=== PATIENT | female | born 1990 | race Caucasian/White ===

== ENCOUNTER 2023-03-07 10:05 | Outpatient (CLI) | payer MEDICAID, SELFPAY | END 2023-03-07 10:06 | disposition home or self-care (01) | PROVIDERS: PCP Nurse Practitioner Family; Visit Provider Nurse Practitioner Family | DX: Z00.00 Encounter for general adult medical examination without abnormal findings (principal); E03.9 Hypothyroidism, unspecified; E11.69 Type 2 diabetes mellitus with other specified complication; E66.9 Obesity, unspecified | CPT/HCPCS: 80053; 80061; 84443 ==

== ENCOUNTER 2023-06-03 20:14 | Outpatient (CLI) | payer MEDICAID, SELFPAY ==
--- NOTE | 2023-06-11 08:41 | W.PM.SLEEP ---
Sleep Study Details Details Interpreting Provider: Pasha Date of Sleep Study: 06/03/23 Sleep Study Details: STUDY TYPE:? Home unattended ? BMI:? 57.4 ORDERING PROVIDER:? Pasha INDICATION:? Concerns about sleep apnea ? SLEEP SUMMARY:? Total sleep time 348 minutes, efficiency 80.6, arousal index 57.9 RESPIRATORY SUMMARY:? Mean oxygen awake 95 asleep 94 minimum 75 2.4 minutes oxygen between 80 and 88% AHI 21.2, RDI 48.4. No REM stage sleep was seen. The entire study was done in the supine position PERIODIC LIMB MOVEMENTS OF SLEEP:? None were observed CARDIAC:? Awake 65, asleep 62. No arrhythmias noted IMPRESSION:? Moderate to severe obstructive sleep apnea with an AHI of 21.2 and RDI of 48.4. Note the entire study was done supine. RECOMMENDATION: AutoSet CPAP pressure 4-17. Weight loss is also recommended.
== END 2023-06-03 20:15 | disposition home or self-care (01) ==
LOC: SLEEP 20:15
PROVIDERS: PCP Nurse Practitioner Family; Visit Provider Otolaryngology
DX: G47.33 Obstructive sleep apnea (adult) (pediatric) (principal)
CPT/HCPCS: 95810

== ENCOUNTER 2023-09-26 12:18 | Outpatient (CLI) | payer MEDICAID, SELFPAY | END 2023-09-26 12:19 | disposition home or self-care (01) | PROVIDERS: PCP Nurse Practitioner Family; Visit Provider Nurse Practitioner Family | DX: F32.A Depression, unspecified (principal); F41.9 Anxiety disorder, unspecified; E03.9 Hypothyroidism, unspecified | CPT/HCPCS: 82306; 84481 ==

== ENCOUNTER 2023-11-20 06:52 | Day surgery (SDC) | payer MEDICAID, SELFPAY ==
[2023-11-20] VITALS (7 sets, daily range): BP systolic 127–154; BP diastolic 65–86; PULSE 55–63; RESP 16–20; TEMP 36.3–36.7; O2SAT 93–100; BMI 61.3
[2023-11-20] MEDS: SODIUM CHLORIDE 0.9 % (FLUSH) 10 ML SYRINGE IVF (08:00)
[2023-11-20] MEDS: LACTATED RINGERS 1000 ML 1,000 ML 100 ML IV (08:00)
[2023-11-20 08:12] LABS: Basophils Absolute Auto 0.04 K/uL (0.00-0.30); Basophils Percent Auto 0.4 % (0.0-3.0); Eosinophils Absolute Auto 0.21 K/uL (0.00-0.50); Eosinophils Percent Auto 2.2 % (0.0-7.0); Hematocrit 42.6 % (33.0-51.0); Hemoglobin* 13.6 gm/dL (12.0-16.0); Immature Granulocytes Abs Auto 0.02 K/uL (0.00-0.30); Immature Granulocytes Pct Auto 0.2 %; Lymphocytes Absolute Auto 2.04 K/uL (0.90-2.90); Lymphocytes Percent Auto 21.1 % (20-44); Mean Corpuscular HGB Conc 32 gm/dL (32-36); Mean Corpuscular Hemoglobin 28 pg (26-34); Mean Corpuscular Volume 86 fL (80-100); Monocytes Percent Auto 6.7 % (0.0-11.0); Neutrophils Percent Auto 69.4 % (42.0-72.0); Platelet Count* 202 K/uL (140-440); RDW Coefficient of Variation % 13.7 % (11.5-15.5); Red Blood Count 4.94 m/uL (4.00-5.20); White Blood Count* 9.66 K/uL (4.50-11.00)
[2023-11-20 08:12] LABS: Ur HCG Qualitative* Negative (Negative)
[2023-11-20 08:18] LABS: Slide Review Reflex No
--- NOTE | 2023-11-20 08:18 | W.PM.H&PU ---
History & Physical Update History & Physical Update H&P Reviewed and patient assessed: No changes noted
[2023-11-20 08:35] LABS: Chloride* 108 mmol/L (96-114); Potassium* 4.4 mmol/L (3.6-5.1); Sodium* 140 mmol/L (135-149)
[2023-11-20 08:37] LABS: Creatinine* 0.7 mg/dL (0.5-1.5); Est. Creatinine Clearance* 213.99; Estimated Glomerular Filt Rate 116 ml/min
[2023-11-20 08:38] LABS: Anion Gap 7 mEq/L (7-15); Blood Urea Nitrogen* 14 mg/dL (5-24); Calcium* 8.8 mg/dL (8.4-10.6); Carbon Dioxide* 25 mmol/L (20-32); Glucose* 110 mg/dL (60-115)
[2023-11-20 09:09] LABS: Clue Cells No Clue Cells Seen (None Seen); Trichomonas No Trichomonas Seen (None Seen); Yeast No Yeast Seen (None Seen)
--- NOTE | 2023-11-20 09:15 | W.ANESCHARGE ---
Anesthesia Charges Start Date/Time Anesthesia Start Date: 11/20/23 Anesthesia Start Time: 08:14 Stop Date/Time Anesthesia Stop Date: 11/20/23 Anesthesia Stop Time: 08:53
--- NOTE | 2023-11-20 09:50 | P.GYNPRC_ITS ---
Procedure Note Time Seen by Provider: 09:50 Date of procedure: 11/20/23 Procedure: DILATION AND CURETTAGE PREOPERATIVE DIAGNOSIS: 1. Overdue Gabby IUD 2. Overdue pap smear 3. Unable to tolerate pelvic exam in clinic POSTOPERATIVE DIAGNOSIS: Same PROCEDURE: 1. EUA 2. Screening pap smear with HPV 3. Gabby IUD removal 4. Mirena IUD insertion SURGEON: Chanelle Bryant MD ANESTHESIA: MAC FINDINGS: 1. Patient had incontinence of urine when being positioned 2. Erythema on bilateral labia minor near introitus - wet prep performed 3. A 6 week size mobile anteverted uterus, no adnexal masses on EUA 4. Normal external genitalia, small normal appearing cervix with IUD strings protruding from cervical os. Cervix was friable when the pap smear was being obtained. ESTIMATED BLOOD LOSS: <5 cc URINE OUTPUT: 20 cc COMPLICATIONS: None SPECIMEN: 1. Cervical pap smear INDICATIONS: Maxime is a 33yo G0 here for exam under anesthesia due to overdue IUD replacement and inability to tolerate pelvic exam in office. Additionally, she is overdue for her screening Pap smear as well. DESCRIPTION OF PROCEDURE: The patient was taken to the operating room where monitored anesthesia care was administered. Pneumoboots were placed and activated. She was placed in the dorsal lithotomy position in yellow fin, taking care to avoid lower extremity hyperextension, hyperflexion or compression. Unfortunately, the standard yellow fins were too small for her and there was not bariatric yellow fins available. Tape was used to secure the straps on the yellow fins. During debrief, I mentioned that we need to have at least one set bariatric yellow fins. A surgical time-out was performed with the entire operative staff per protocol. EUA revealed the above findings. Bladder was drained with a red rubber. A speculum was placed in the patient's vagina and pap smear was obtained prior to iodine prep. The cervix was then subsequently prepped with iodine. Single- tooth tenaculum was placed on the anterior lip of the cervix. A ring forceps was used to grasp the protruding IUD strings at the cervical os. Gentle traction was used to remove the IUD. Gabby IUD was removed intact without complications. Attention was then turned towards the Mirena IUD insertion. The IUD is loaded into the insertion tube, inserted to the sounded depth (7 cm), and the IUD is deployed. Insertion tube was removed. Strings are trimmed to 3 cm. There were no complications with insertion. The tenaculum was removed from the anterior lip of the cervix and silver nitrate was used for hemostasis at the tenaculum sites. Excellent hemostasis was noted. All instruments were removed. Sponge, lap and needle counts were correct x 2. The patient was taken to the recovery room in stable condition. Debrief performed per protocol and specimen reviewed. Specimen was sent to pathology. Per Anesthesia, there was significant difficulties managing her oxygen saturation throughout the case. She did not tolerate any amount of Trendelenburg. This related to her severe sleep apnea and obesity. I spoke to Maxime's mom about this after the case and they do have an appointment to see ENT on 12/17 with possible surgical management for her sleep apnea. Maxime does not tolerate the CPAP and would frequently take it off. Unfortunately she wakes up numerous times throughout the night. It has significantly impacted her mood, quality of life and she has been so sleep deprived that it has caused hallucinations in the past. I emphasized the importance of CPAP given how severe her sleep apnea is but also acknowledge the difficulties of making Maxime do something she does not want. It is vital that they keep their appointment with ENT to explore other options to prevent theses apneic events and restore her sleep. With regards to today's procedures, there were not complications. Pathology: specimen obtained, sent to pathology (Screening pap smear for cytology and HPV testing ) Condition: stable Disposition: PACU
--- NOTE | 2023-11-20 10:08 | SUR.PHASEII ---
Delano Breen CRNA, assessed resp. status and agreed pt sufficiently recovered to be discharged. sats mid to upper 90's on room air. lungs clear
--- NOTE | 2023-11-20 11:37 | W.ANESCHARGE ---
Anesthesia Charges Start Date/Time Anesthesia Start Date: 11/20/23 Anesthesia Start Time: 08:14 Stop Date/Time Anesthesia Stop Date: 11/20/23 Anesthesia Stop Time: 08:53
== END 2023-11-20 10:10 | disposition home or self-care (01) ==
PROVIDERS: PCP Nurse Practitioner Family; Visit Provider Obstetrics & Gynecology
PROC: (CPT 58301; principal; 2023-11-20 08:15)
DX: Z30.433 Encounter for removal and reinsertion of intrauterine contraceptive device (principal); G47.33 Obstructive sleep apnea (adult) (pediatric); E66.01 Morbid (severe) obesity due to excess calories; Z68.44 Body mass index [BMI] 60.0-69.9, adult; R45.86 Emotional lability; F32.A Depression, unspecified; F41.9 Anxiety disorder, unspecified; R45.89 Other symptoms and signs involving emotional state; R62.50 Unspecified lack of expected normal physiological development in childhood
CPT/HCPCS: 58301; 58300; 57410; 00940; 36415; 80048; 81025; 85025; 87210; 87624; 88175; J1100; J2250; J2405; J2704; J3010; J3490; J7120; J7298

== ENCOUNTER 2024-01-31 21:07 | Outpatient (CLI) | payer MEDICAID, SELFPAY | END 2024-01-31 21:08 | disposition home or self-care (01) | LOC: AMB 02-02 06:46 | PROVIDERS: PCP Nurse Practitioner Family; Visit Provider Emergency Medicine | DX: F91.9 Conduct disorder, unspecified (principal) | CPT/HCPCS: A0998 ==

== ENCOUNTER 2024-02-10 14:31 | Outpatient (CLI) | payer MEDICAID, SELFPAY | END 2024-02-10 14:32 | disposition home or self-care (01) | LOC: NFLDREF 02-14 09:08 | PROVIDERS: PCP Nurse Practitioner Family; Referring Provider Nurse Practitioner Family; Visit Provider Nurse Practitioner Family | DX: E03.9 Hypothyroidism, unspecified (principal); E66.9 Obesity, unspecified; R45.89 Other symptoms and signs involving emotional state | CPT/HCPCS: 80175; 84443; 84481 ==

== ENCOUNTER 2024-03-05 07:24 | Day surgery (SDC) | payer MEDICAID, SELFPAY ==
--- OUTSIDE RECORDS SUMMARY | 2024-03-05 07:26 | XMS_ITS | Encounter Summary ---
Author Name Unknown Organization [place] Address [address] [facility] [place] [address] Care Team Providers Care Tufting Machine Operator Name Role Phone Brock Norris MD Unavailable [phone] Andreina Gomes MD Unavailable [phone] Lele Buckley OD Unavailable [phone] [facility] re Provider Reason for Visit * Reason Onset Date Comments Call Back 12/31/2023 Encounter Details Date Type Department Care Team (Late st Contact Info) Description 12/31/2023 Telephone [facility] [address] 3rd Floor,[address] [place] [facility] [address] [place] [address] None Call Back Social History Tobacco Use Types Packs/Day Years Used Date Smoking Tobacco: Never Comments:NO SECOND HAND SMOK E Alcohol Use Standard Drinks/Week Comments No 0 (1 standard drink = 0.6 oz pur e alcohol) Adolescent Education Answer Date Record ed Getting School Help Needed Not on file 09/01 Sex and Gender Information Value Date Recorded Sex Assigned at Not on file Gender Identity Not on file Sexual Orientation Not on file documented as of this encounter Miscellaneous Notes * Telephone Encounter - Hong Staton - 12/31/2023 10:48 AM CST LVM for patient's guardian to schedule 1 hr-long new CFP appointment with Dr. Rankin or Dr. Christianson. ULATOR * Telephone Encounter - Elena Pop - 12/31/2023 9:57 AM CST [facility] Phone Message May a detailed message be left on voicemail: yes Reason for Call: Other: Pt legal guardian Twila calling to schedule pt for a IUD removal and hysterectomy consult. Repeat Photocomposing Machine Operator informed Twila this will be 2 separate appts. Twila states pt is special needs and is requesting this all be done at 1 appt. Please advise and call Twila Action Taken: Message routed to: Other: [facility] Travel Screening: Not Applicable ULATOR documented in this encounter Plan of Treatment Not on file documented as of this encounter Visit Diagnoses Not on filedocumented in this encounter Care Teams Tufting Machine Operator Relationship Specialty Start Date End Date Brock Norris MD [facility] [place] [address] [place] [address] PCP - ENT 12/11/00 02/03/24 Andreina Gomes MD [facility] [place] [address] [place] [address] PCP - Urology 06/12/06 02/03/24 Lele Buckley, ALESSANDRO [facility] [place] [address] [place] [address] PCP - Ophthalmology 08/25/09 02/03/[address] [address] PCP - General 06/26/23 Dr. Naresh Herrera [address] [address] Psychiatrist 11/18/14 02/01/24 documented as of this encounter
--- OUTSIDE RECORDS SUMMARY | 2024-03-05 07:26 | XMS_ITS ---
Author Name Unknown Organization [facility] Address [address] [place] [address] Care Team Providers Care Wire Tinner Name Role Phone Unavailable Unavailable Unavailable Surgery Details Not on file Complications Check Surgery Details section. Procedure Estimated Blood Loss Check Surgery Details section. Procedure Findings Check Surgery Details section. Procedure Specimens Taken Check Surgery Details section.
--- OUTSIDE RECORDS SUMMARY | 2024-03-05 07:26 | XMS_ITS | Encounter Summary ---
Author Name Unknown Organization [place] Address [address] [place] [address]. [place] [address] Care Team Providers Care Rotary Cutter Feeder Name Role Phone Brock Norris MD Unavailable [phone] Andreina Gomes MD Unavailable [phone] Lele Buckley OD Unavailable [phone] [facility] re Provider Leida Christianson MD Unavailable [phone] Encounter Details Date Type Department Care Team (Latest Contact Info) Description 06/28/2023 Hospital Encounter Amena Gonsales MD [facility] [place] [address] Social History Tobacco Use Types Packs/Day Years [...] on file Sexual Orientation Not on file COVID-19 Exposure Response Date Recorded In the last 10 days, have yo u been in contact with someone who was confirmed or suspected to have Coronavirus/COVID-19? No / Unsure 06/26/2023 9:33 AM CDT documented as of this encounter Plan of Treatment Not on file documented as of this encounter Visit Diagnoses Not on filedocumented in this encounter Care Teams Rotary Cutter Feeder Relationship Specialty Start Date End Date Brock Norris MD [facility] [place] [address] [place] [address] PCP - ENT 12/11/00 02/03/24 Andreina Gomes MD [facility] [place] [address] [place] [address] PCP - Urology 06/12/06 02/03/24 Lele Buckley OD [facility] [place] [address] [place] [address] PCP - Ophthalmology 08/25/09 02/03/[address] [address] PCP - General 06/26/23 Leida Christianson MD [address] [place] [address] Assigned OBGYN Provider 01/31/24 Dr. Naresh Herrera [address] [address] Psychiatrist 11/18/14 02/01/24 Amy Magallanes Psychiatrist 01/16/24 documented as of this encounter
--- OUTSIDE RECORDS SUMMARY | 2024-03-05 07:26 | XMS_ITS | Clinical Summary ---
Author Name Unknown Organization [place] Address [address] [place] [address] Care Team Providers Care Tomahawk Weapon System Operator Name Role Phone Clinic, [facility] Provider Leida Christianson MD Unavailable Allergies Active Allergy Reactions Criticality Noted Date Comments No Known Allergies Low Medications Medication Sig Dispensed Refills Start Date End Date Status ARIPiprazole (ABILIFY) 20 MG tablet Take 25 mg by mouth every morning Take in combination with a 5 mg tablet for 25 mg 06/14/2023 Active lamoTRIgine (LAMICTAL) 200 MG tablet Take 200 mg by mouth every morning 06/13/2023 Active propranolol (INDERAL) 60 MG tablet Take 1 tablet by mouth 2 times daily 06/12/2023 Active levothyroxine (SYNTHROID/LEVOTHRO ID) 137 MCG tablet Take 137 mcg by mouth daily before breakfast 06/25/2023 Active traZODone (DESYREL) 100 MG tablet Take 100 mg by mouth at bedtime Active DULoxetine (CYMBALTA) 60 MG capsule Take 60 mg by mouth daily Active hydrOXYzine HCl (ATARAX) 25 MG tablet Take 25 mg by mouth 3 times daily as needed for anxiety Active QUEtiapine (SEROQUEL) 50 MG tablet Take 50 mg by mouth 2 times daily as needed (Agitation) Active topiramate (TOPAMAX) 100 MG tabletIndications:A ggressive behavior Take 1 tablet (100 mg) by mouth every evening 7 tablet 02/03/2024 Active topiramate (TOPAMAX) 50 MG tabletIndications:A ggressive behavior Take 1 tablet (50 mg) by mouth every morning 7 tablet 02/03/2024 Active OLANZapine zydis (ZYPREXA) 5 MG ODTIndications:Aggr essive behavior,Hallucinat ions Take 1 tablet (5 mg) by mouth 3 times daily as needed for agitation 15 tablet 02/03/2024 Active Active Problems Problem Noted Date Diagnosed Date 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 Provider to review Lack of expected normal physiological developmen t 12/26/2007 Overview: Problem list name updated by automated process. Provider to review Essential hypertension, benign 12/26/2007 Overview: 03/2008- optimal on Lisinopril 10 mg daily Other chronic otitis externa 10/05/2002 Impacted cerumen 10/05/2002 Otitis media 10/05/2002 Overview: Problem list name updated by automated process. Provider to review Resolved Problems Problem Noted Date Diagnosed Date Resolved Date Intellectual delay 02/03/2024 Overview: per history Encounters Date Type Department Care Team Description 02/02/2024 5:20 PM CDT - 02/04/2024 1:[address] [facility] Emergency Dept [address] [place] [phone] Han Arroyo MD [place], MD Kostas Mason, MD Jenise Rey Kylie S, MD Battista, MD Brenda Foreman Ellen, Hallucinations (Primary Dx); Aggressive behavior; Cognitive impairment Discharge Disposition: Home or Self Care 02/02/2024 Travel 01/14/2024 9:30 AM INSURANCE JOB TITLES Office Visit [facility] [address] [place] [address] 3rd Floor,[address] [facility] [address] [phone] Leida Christianson MD Menorrhagia with regular cycle (Primary Dx); Lack of expected normal physiological development; KALIE (obstructive sleep apnea); Type 2 diabetes mellitus without complication, unspecified whether [facility] insulin use (H); Psychosis, unspecified psychosis type (H); Class 3 severe obesity with serious comorbidity and body mass index (BMI) of 50.0 to 59.9 in adult, unspecified obesity type (H) 01/14/2024 Travel 12/31/2023 Telephone [facility] [address] [place] [address] 3rd Floor,[address] [facility] [address] [phone] None Call Back 12/25/2023 Transcribe Orders GENERIC EXTERNAL DATA DEPARTMENT Provider, Generic External Data Morbid (severe) obesity due to excess calories (H) (Primary Dx); Body mass index (BMI) 60.0-69.9, adult (H); Personal history of pulmonary embolism; Type 2 diabetes mellitus with other specified complication (H); Obesity, unspecified; Hypothyroidism; Unspecified lack of expected normal physiological development in childhood; Sleep apnea; Emotional lability; Presence of (intrauterine) contraceptive device; Insomnia; Personal history of other specified conditions; Depression; Anxiety 12/23/2023 Medical Correspondence [facility] Info [facility] [address] [place] [address] Scan, Non-Provider from Last 3 Months Immunizations Name Administration Dates Next Due Flu, Unspecified 09/01/2015,09/10/2013, 1 HepB 02/07/2000,07/11/1999,03/30/1999 HepB, Unspecified 02/08/2000,07/11/1999,03/30/19 99 Historical DTP/aP 04/29/1995, 1,1990,1989,06/02/1990 Influenza (High Dose) 3 indira nt vaccine 08/18/2016 Influenza (IIV3) PF 08/14/2012, 0,11/03/2007,2004,09/13/2004,09/11/2001 Influenza Vaccine 18-64 (Flublok) 10/05/2021 Influenza Vaccine >6 months,quad, PF ,10/19/2021,11/26/2018,2016,08/02/2016,08/24/2014 Influenza Vaccine, 6+MO IM (QUADRIVALENT W/PRESERVATIVES) 08/14/2019,08/18/2015 Influenza,INJ,MDCK,PF,Quad >6mo(Flucelvax) 08/15/2020 MMR 03/30/1999,04/06/1990 Mantoux Tuberculin Skin Test 02/22/2009, 02/25/2008,03/07/2007,2005,03/21/2005,03/22/2004,03/24/2003,0 03/25/2002,03/26/2001 OPV, trivalent, live 04/29/1995 Polio, Unspecified 04/21/1991,1990, 990 TD,PF 7+ (Tenivac) 03/24/2003 TDAP (Adacel,Boostrix) 05/26/2021,02/27/2011 Td (Adult), Adsorbed 03/24/2003 Family History Medical History Relation Comments Hypertension Maternal Grandfather Hypertension Maternal Grandmother Family History Negative Other Relation Status Comments Father Alive Maternal Grandfather Alive Maternal Grandmother Alive Mother Alive Other Paternal Grandfather Alive Paternal Grandmother Alive Sister Alive Social History Tobacco Use Types Packs/Day Years [...] on file Sexual Orientation Not on file Last Filed Vital Signs Vital Sign Reading Time Taken Comments Blood Pressure 132/66 02/04/2024 7:19 AM CDT Pulse 67 02/03/2024 3:47 PM CDT Temperature 36.9 ??C (98.4 ??F) 02/04/2024 7:19 AM CD T Respiratory Rate 20 02/04/2024 7:19 AM CDT Oxygen Saturation 95% 02/04/2024 7:19 AM CDT Inhaled Oxygen Concentration - - Weight 121.1 kg (267 lb) 01/14/2024 10:24 AM INSURANCE JOB TITLES Height 143.5 cm (4' 8.5) 01/14/2024 10:24 AM CS T Body Mass Index 58.81 01/14/2024 10:24 AM INSURANCE JOB TITLES Plan of Treatment Health Maintenance Due Date Last Done Comments ANNUAL REVIEW OF HM ORDERS 1989 DIABETIC FOOT EXAM 1989 MICROALBUMIN 1989 Pneumococcal Vaccine: Pediatrics (0 to 5 Years) and At-Risk Patients (6 to 64 Years) (1 of 2 - PCV) 1995 HIV SCREENING 2004 HEPATITIS C SCREENING 2007 A1C 04/04/2008 01/05/2008 LIPID 01/05/2009 01/05/2008 TSH W/FREE T4 REFLEX 08/17/2010 08/17/2009, 06/29/2009, 02/22/2009, Additional history exists EYE EXAM 08/23/2010 08/23/2009, 08/05/2007 PAP 2010 YEARLY PREVENTIVE VISIT 03/11/2020 03/11/20 19, 03/07/2018, 02/21/2010, Additional history exists COVID-19 Vaccine ( season) 2023 INFLUENZA VACCINE (#1) 2023 , 10/19/2021, 10/05/2021, Additional history exists PHQ-2 (once per calendar year) 2023 BMP 06/26/2024 06/26/2023, 07/21, 06/29/2009, Additional history exists ADVANCE CARE PLANNING 06/27/2028 06/27/2023 DTAP/TDAP/TD IMMUNIZATION (8 - Td or Tdap) 05/26/2031 05/26/2021, 02/27/2011, 03/24/2003, Additional history exists IPV IMMUNIZATION Completed 04/29/1995, 02/1991, 1990, Additional history exists HEPATITIS B IMMUNIZATION Completed 000, 02/07/2000, 07/11/1999, Additional history exists HPV IMMUNIZATION Aged Out No longer e ligible based on patient's age to complete this topic MENINGITIS IMMUNIZATION Aged Out No l onger eligible based on patient's age to complete this topic RSV MONOCLONAL ANTIBODY Aged Out No l onger eligible based on patient's age to complete this topic Procedures Procedure Name Priority Date/Time Associated Diagnosis Comments BASIC METABOLIC PANEL STAT 06/26/2023 12:10 PM CDT HCL TSH W/FREE T4 REFLEX Routine 08/17/2009 7:38 AM CDT HYPOTHYROIDISM NOS CL AFF A.M.A. LIPID PANEL Routine 01/05/2008 8:35 AM INSURANCE JOB TITLES Benign Hypertension Obesity Nos HCL GLYCATED HEMOGLOBIN Routine 01/05/2008 8:35 AM INSURANCE JOB TITLES Obesity Nos Benign Hypertension from Last 3 Months or Most Recently Relevant to Health Maintenance Results * (ABNORMAL) Basic metabolic panel (06/26/2023 12:10 PM CDT) Sodium 138 136 - 145 mmol/L 06/26/2023 1:03 PM CDT LABORATORY Potassium 4.3 3.4 - 5.3 mmol/L 06/26/2023 1:03 PM CDT LABORATORY Chloride 106 98 - 107 mmol/L 06/26/2023 1:03 PM CDT [facility] LABORATORY Carbon Dioxide (CO2) 21(L) 22 - 29 mmol/L 06/26/2023 1:03 PM CDT LABORATORY Anion Gap 11 7 - 15 mmol/L 06/26/2023 1:03 PM CDT [facility] Urea Nitrogen 13.5 6.0 - 20.0 mg/dL 06/26/2023 1:03 PM CDT LABORATORY Creatinine 0.71 0.51 - 0.95 mg/dL 06/26/2023 1:03 PM CDT LABORATORY Calcium 9.0 8.6 - 10.0 mg/dL 06/26/2023 1:03 PM CDT LABORATORY Glucose 102(H) 70 - 99 mg/dL 06/26/2023 1:03 PM CDT [facility] GFR Estimate >90 >60 mL/min/1.7 3m2 06/26/2023 1:03 PM CDT [facility] LABORATORY Blood STRUCTURE OF LEFT WRIST REGION / Unknown Venipuncture / Unknown 06/26/2023 12:10 PM CDT 06/26/2023 12:18 PM CDT Harvey Granados MD LAB - BLOOD [facility]ORAT[facility] [address] Lab (1st floor, no room number) [place] [address], [facility] [phone] * TSH W/FREE T4 REFLEX (08/17/2009 7:38 AM CDT) TSH 4.77 0.4 - 5.0 mU/L [facility] 08/17/2009 7:38 AM CDT 08/17/2009 3:44 PM CDT Neville Mcintosh MD LABORATORY Performing Organization Address [facility] Co de Phone Number [facility] [place] [address] * HEMOGLOBIN A1C (01/05/2008 8:35 AM INSURANCE JOB TITLES) Hemoglobin A1C 5.8 4.3 - 6.0 % [facility] 01/05/2008 8:35 AM INSURANCE JOB TITLES 01/05/2008 8:36 AM INSURANCE JOB TITLES Mohsen Nunes MD LABORATORY Performing Organization Address City/[facility]/ZIP Co de Phone Number [facility] [place] [address] * (ABNORMAL) A.M.A. LIPID PANEL (01/05/2008 8:35 AM INSURANCE JOB TITLES) Cholesterol 168 0 - 200 mg/dL [facility] Comment: LDL Cholesterol is the primary guide to therapy: LDL-cholesterol goal in high risk patients is <100 mg/dL and in very high risk patients is <70 mg/dL. The NCEP recommends further evaluation of: patients with cholesterol <200 mg/dL if additional risk factors are present, cholesterol >240 mg/dL, triglycerides >150 mg/dL, or HDL <40 mg/dL. Triglycerides 168(H) 0 - 150 mg/dL [email or web address] [place] [facility] HDL Cholesterol 31(L) 50 - 110 mg/dL [email or web address] [place] [facility] LDL Cholesterol Calculated 104 0 - 129 mg/dL [facility] [place] [facility] VLDL-Cholesterol 34(H) 0 - 30 mg/dL [facility] [place] [facility] Cholesterol/HDL Ratio 5.5(H) 0.0 - 5.0 [email or web address] [place] [facility] 01/05/2008 8:35 AM INSURANCE JOB TITLES 01/05/2008 8:36 AM INSURANCE JOB TITLES Mohsen Nunes MD LABORATORY [facility] [place] [place] [address] from Last 3 Months or Most Recently Relevant to Health Maintenance Advance Directives For more information, please contact: [phone] Documents on File Type Date Recorded Patient Crossing Guard Expl anation Advance Directives and Living Will 06/27/2023 Twila Justin (GUARDIAN) Legal Guardianship 09-16-2017 (original order 03-11-2009) Care Teams Tomahawk Weapon System Operator Relationship Specialty Start Date End Date [facility] [address] [address] PCP - General 06/26/23 Leida Christianson MD [address] [place] [address] Assigned OBGYN Provider 01/31/24 Aym Magallanes Psychiatrist 01/16/24
--- OUTSIDE RECORDS SUMMARY | 2024-03-05 07:26 | XMS_ITS | Referral Summary ---
Author Name Unknown Organization [place] Address [facility] [place] [address] Care Team Providers Care Nursery Helper Name Role Phone Clinic, [facility] Primary Ca re Provider Leida Christianson MD Unavailable Encounters Date Type Department Care Team Description 02/02/2024 5:20 PM CDT - 02/04/2024 1:06 PM CDT Emergency [facility] Emergency Dept [address] [place] [id number] Han Arroyo MD Houghland, MD Kostas Mason Andrew C, MD Dixson, Kylie S, MD Battista, MD Brenda Foreman Ellen, DO Hallucinations (Primary Dx); Aggressive behavior; Cognitive impairment Discharge Disposition: Home or Self Care 02/02/2024 Travel 01/14/2024 Travel 01/14/2024 9:30 AM AIR CHIPPER Office Visit [facility] [address] [facility] [address] [place] [phone] Leida Christianson MD Menorrhagia with regular cycle (Primary Dx); Lack of expected normal physiological development; KALIE (obstructive sleep apnea); Type 2 diabetes mellitus without complication, unspecified whether halfway insulin use (H); Psychosis, unspecified psychosis type (H); Class 3 severe obesity with serious comorbidity and body mass index (BMI) of 50.0 to 59.9 in adult, unspecified obesity type (H) 12/31/2023 Telephone [facility] [address] 3rd Floor,[address] [facility] [address] [place] [address] None Call Back 12/25/2023 Transcribe Orders GENERIC [...] specified conditions; Depression; Anxiety 12/23/[address] [facility] [address] [place] [address] Scan, Non-Provider from Last 3 Months Allergies Active Allergy Reactions Criticality Noted Date [...] Diagnosed Date Resolved Date Intellectual delay 02/03/2024 4 Overview: per history Immunizations Name Administration Dates Next Due Flu, [...] TDAP (Adacel,Boostrix) 05/26/2021,02/27/2011 Td (Adult), Adsorbed 03/24/2003 Social History Tobacco Use Types Packs/Day Years [...] 121.1 kg (267 lb) 01/14/2024 10:24 AM AIR CHIPPER Height 143.5 cm (4' 8.5) 01/14/2024 10:24 AM CS T Body Mass Index 58.81 01/14/2024 10:24 AM AIR CHIPPER Plan of Treatment Not on file Procedures Procedure Name Priority Date/Time Associated Diagnosis Comments BASIC METABOLIC PANEL STAT 06/26/2023 12:10 PM CDT HCL TSH W/FREE T4 REFLEX Routine 08/17/2009 7:38 AM CDT HYPOTHYROIDISM NOS CL AFF A.M.A. LIPID PANEL Routine 01/05/2008 8:35 AM AIR CHIPPER Benign Hypertension Obesity Nos HCL GLYCATED HEMOGLOBIN Routine 01/05/2008 8:35 AM AIR CHIPPER Obesity Nos Benign Hypertension from Last 3 Months or Most Recently Relevant to Health Maintenance Results * (ABNORMAL) Basic metabolic panel (06/26/2023 12:10 PM CDT) [facility] Signature Sodium 138 136 - 145 mmol/L 06/26/2023 1:03 PM CDT LABORATORY Potassium 4.3 3.4 - 5.3 mmol/L 06/26/2023 1:03 PM CDT LABORATORY Chloride 106 98 - 107 mmol/L 06/26/2023 1:03 PM CDT LABORATORY Carbon Dioxide (CO2) 21(L) 22 - [...] - 99 mg/dL 06/26/2023 1:03 PM CDT LABORATORY GFR Estimate >90 >60 mL/min/1.7 3m2 06/26/2023 1:03 PM CDT RH LABORATORY Blood STRUCTURE OF LEFT WRIST REGION / Unknown Venipuncture / Unknown 06/26/2023 12:10 PM CDT 06/26/2023 12:18 PM CDT Harvey Granados MD LAB - BLOOD S[facility]TO [facility] LABORATORY [facility] Acute [facility] Lab [address] Lab (1st floor, no room number) [place] [address], [facility] [phone] * TSH W/FREE T4 REFLEX (08/17/2009 7:38 AM CDT) TSH 4.77 0.4 - 5.0 mU/L [facility]/RAD 08/17/2009 7:38 AM CDT 08/17/2009 3:44 PM CDT Neville Mcintosh MD LABORATORY Performing Organization Address City/[facility] Co de Phone Number [facility] [place] [address] * HEMOGLOBIN A1C (01/05/2008 8:35 AM AIR CHIPPER) Pathologist [facility] Hemoglobin A1C 5.8 4.3 - 6.0 % [facility] 01/05/2008 8:35 AM AIR CHIPPER 01/05/2008 8:36 AM AIR CHIPPER Mohsen Nunes MD LABORATORY Performing Organization Address City/[facility]/ZIP Co de Phone Number [facility] [address] * (ABNORMAL) A.M.A. LIPID PANEL (01/05/2008 8:35 AM AIR CHIPPER) Cholesterol 168 0 - 200 mg/dL [facility] Comment: LDL Cholesterol is the primary guide to therapy: LDL-cholesterol goal in high risk patients is <100 mg/dL and in very high risk patients is <70 mg/dL. The NCEP recommends further evaluation of: patients with cholesterol <200 mg/dL if additional risk factors are present, cholesterol >240 mg/dL, triglycerides >150 mg/dL, or HDL <40 mg/dL. Triglycerides 168(H) 0 - 150 mg/dL [facility] HDL Cholesterol 31(L) 50 - 110 mg/dL [facility] LDL Cholesterol Calculated 104 0 - 129 mg/dL [facility] VLDL-Cholesterol 34(H) 0 - 30 mg/dL [facility] Cholesterol/HDL Ratio 5.5(H) 0.0 - 5.0 [facility] 01/05/2008 8:35 AM AIR CHIPPER 01/05/2008 8:36 AM AIR CHIPPER Mohsen Nunes MD LABORATORY [facility] [place] [facility] [place] [address] from Last 3 Months or Most Recently Relevant to Health Maintenance Advance Directives For more information, please contact: [phone] Documents on File Type Date Recorded Patient Signal Constructor Expl anation Advance Directives and Living Will 06/27/2023 Twila Justin (GUARDIAN) Legal Guardianship 09-16-2017 (original order 03-11-2009) Care Teams Nursery Helper Relationship Specialty Start Date End Date Clinic, [place] [address] [address] [address] PCP - General 06/26/23 Leida Christianson MD [address] [place] [address] Assigned OBGYN Provider 01/31/24 Amy Magallanes Psychiatrist 01/16/24
--- OUTSIDE RECORDS SUMMARY | 2024-03-05 07:26 | XMS_ITS | Encounter Summary ---
Author Name Unknown Organization [facility] Address [address] [place] [address] Care Team Providers Care Hand Bander Name Role Phone Brock Norris MD Unavailable [phone] Andreina Gomes MD Unavailable [phone] Lele Buckley OD Unavailable [phone] [facility] re Provider Encounter Details Date Type Department Care Team (Latest Contact Info) Description 01/14/2024 Travel Social History Tobacco Use Types Packs/Day Years [...] on file documented as of this encounter Plan of Treatment Not on file documented as of this encounter Visit Diagnoses Not on filedocumented in this encounter Care Teams Hand Bander Relationship Specialty Start Date End Date Brock Norris MD [facility] [address] [place] [address] PCP - ENT 12/11/00 02/03/24 Andreina Gomes MD [facility] [address] [place] [address] PCP - Urology 06/12/06 02/03/[address] [facility] [place] [address] [facility] [address] [place] [address] PCP - Ophthalmology 08/25/09 02/03/[address] [address] PCP - General 06/26/23 Dr. Naresh Herrera [address] [phone] Psychiatrist 11/18/14 02/01/24 documented as of this encounter
--- OUTSIDE RECORDS SUMMARY | 2024-03-05 07:26 | XMS_ITS | Referral Summary ---
Author Name Unknown Organization [facility] Address [address] [place] [address] Care Team Providers Care Styrene Dehydration Reactor Operator Name Role Phone Gina Hatch APRN, C.NHarpal, M.S.N. Primary Ca re Provider Source Comments Patient records contain information from all sites at [facility]. For routine questions regarding patient records, call [phone] during business hours, M-F 8:00 AM - 5:00 PM Central Time. Record requests for emergency care only can be directed to [phone] at any time.[facility] Allergies No known active allergies Medications Medication Sig Dispensed Refills Start Date End Date Status phenylephrine-pramo ndnf-fuydpbln-milzg petrolatum (PREPARATION H) 0.25-1 % creamIndications:Fi ssure Anal Insert 1 application into the rectum 2 (two) times a day as needed for irritation. 1 Tube 3 03/07/2018 Active propranoloL (INDERAL) 60 mg tablet Take 60 mg by mouth every 12 (twelve) hours. 4 02/11/2019 Active levothyroxine (SYNTHROID, LEVOTHROID) 137 mcg tablet Take 1 tablet (137 mcg total) by mouth daily. 90 tablet 3 06/05/2022 Active risperiDONE (RisperDAL) 1 mg tablet Take 1 mg by mouth 2 (two) times a day. 11/19/2022 Active ARIPiprazole (ABILIFY) 1 mg tablet Take 2 mg by mouth daily. Active amoxicillin (AMOXIL) 500 mg capsule TAKE 4 CAPSULES (2,000 MG TOTAL) BY MOUTH SEE ADMIN INSTRUCTIONS. PRIOR TO DENTAL VISITS 4 capsule 2 12/19/2022 Active DULoxetine (CYMBALTA) [address] capsule Take 60 mg by mouth daily. 09/26/2023 Active topiramate (TOPAMAX) 100 mg tablet Take 100 mg by mouth 2 (two) times a day. 09/26/2023 Active traZODone (DESYREL) 100 mg tablet Take 100 mg by mouth at bedtime. 09/26/2023 Active hydrOXYzine (ATARAX) 25 mg tablet Take 1 tablet by mouth every 8 (eight) hours as needed for anxiety. 09/26/2023 Active lamoTRIgine (LaMICtaL) 200 mg tablet Take 200 mg by mouth daily. 06/13/2023 Active Active Problems Problem Noted Date Diagnosed Date Bleeding Rectal 06/20/2021 Overview: Added automatically from request for surgery [id number] Ventricular Septal Defect Repair Status Post 08/2020 Embolus Pulmonary Personal History 07/16/2020 Hypothyroidism On Replacement 03/04/2017 Morbid Obesity Body Mass Ind ex >= 35 with Comorbid Condition 12/22/2016 Overview: Body mass index (BMI) 40.0-44.9, adult Rule activated problem due to BMI 40-44 posted on 12/22 at 14:51 CAT BREEDER. Stone Common Duct 09/05/2016 Developmental Delay Physiological 02/13/2014 Overview: DELAY DEVELOPMENT Resolved Problems Problem Noted Date Diagnosed Date Resolved Date Thrombosis Deep Vein Acute Calf Left 07/16/2020 11/16/2020 Menometrorrhagia 07/16/2020 11/16/2020 Overview: Added automatically from request for surgery [id number] Bleeding Vaginal 07/16/2020 07/28/2020 Overview: Added automatically from request for surgery [id number] Pain Joint Ankle Right 03/16 Immunizations Name Administration Dates Next Due DTP 04/29/1995, 1,1990,1989,06/02/1990 HepB, Unspecified 02/08/2000,07/11/1999,03/30/19 99 Influenza Split 08/18/2016 Influenza, Injectable, Quadrivalent 08/14/2019,1 Influenza, Seasonal, Injectable 08/14/20 12,08/02/2010,11/03/2007,2004,09/13/2004,09/11/2001 Influenza, Unspecified 08/02/2016,2014,09/10/2013,2011,09/10/2011 MMR 03/30/1999,04/06/1990 OPV 04/29/1995 Polio, Unspecified 04/21/1991,1990, 990 Td (Adult), adsorbed 03/24/2003 Tdap 05/26/2021,02/27/2011 influenza high dose (65 year s or older) (PF) 08/18/2016 influenza vaccine quad (FLUZONE/FLUARIX) (6 months and older)(PF) 08/15/2020,11/26/2018,08/07/2017,2015,08/24/2014 Social History Tobacco Use Types Packs/Day Years Used Date Smoking Tobacco: Never Smokeless Tobacco: Never Tobacco Cessation:Counseling Given: Not Answered Alcohol Use Standard Drinks/Week Comments Never 0 (1 standard drink = 0.6 oz pur e alcohol) Humiliation, Afraid, Rape, and Kick questionnair e Answer Date Recorded Within the last year, have y ou been afraid of your partner or ex-partner? No 07/28/2020 Within the last year, have y ou been humiliated or emotionally abused in other ways by your partner or ex-partner? No Within the last year, have y ou been kicked, hit, slapped, or otherwise physically hurt by your partner or ex-partner? No 07/28/2020 Within the last year, have y ou been raped or forced to have any kind of sexual activity by your partner or ex-partner? No 07/28/2020 Social Connection and Isolation Panel [NHANES] A nswer Date Recorded In a typical week, how many times do you talk on the phone with family, friends, or neighbors? Twice a week 07/28/2020 How often do you get together with friends or re latives? Once a week 07/28/2020 How often do you attend adventist or protestant serv ices? Never 07/28/2020 Do you belong to any clubs o r organizations such as adventist groups, unions, fraternal or athletic groups, or school groups? No 07/28/2020 How often do you attend meet ings of the clubs or organizations you belong to? Never 07/28/2020 Are you , , di vorced, , never , or living with a partner? Never 07/28/2020 AUDIT-C Answer Date Recorded Q1: How often do you have a drink containing alc ohol? Never 03/16/2020 Average Number of Drinks Not on file 020 Frequency of Binge Drinking Not on file 02/17 PHQ-2 Answer Date Recorded PHQ-2 Score 0 05/29/2022 [facility] - Occupational Stress Questionnaire Answer Date Recorded Do you feel stress - tense, restless, nervous, or anxious, or unable to sleep at night because your mind is troubled all the time - these days? Not at all 07/28/2020 Exercise Vital Sign Answer Date Recorde d On average, how many days pe r week do you engage in moderate to strenuous exercise (like a brisk walk)? 1 day 07/28/2020 On average, how many minutes do you engage in exercise at this level? 0 min 07/28/2020 Hunger Vital Sign Answer Date Recorded Within the past 12 months, y ou worried that your food would run out before you got the money to buy more. Never true 07/28/20 20 Within the past 12 months, t he food you bought just didn't last and you didn't have money to get more. Never true 07/28/2020 PRAPARE - Transportation Answer Date Re corded In the past 12 months, has l ack of transportation kept you from medical appointments or from getting medications? No 07/19 In the past 12 months, has l ack of transportation kept you from meetings, work, or from getting things needed for daily living? No 07/28/2020 Nutrition Answer Date Recorded Nutrition: EVOO Fat Source Unknown 08/20 Nutrition: Servings of Fruits/Vegetables per Day Not on file 08/20/2023 Dental Answer Date Recorded Dental: Regular Dentist Unknown 08/20/20 23 Education Answer Date Recorded What is the highest level of school you have completed or the highest degree you have received? 12th grade 07/28/2020 Sex and Gender Information Value Date Recorded Sex Assigned at Not on file Gender Identity Not on file Sexual Orientation Not on file Last Filed Vital Signs Vital Sign Reading Time Taken Comments Blood Pressure 141/76 10/23/2023 6:30 PM CAT BREEDER Pulse 57 10/23/2023 6:30 PM CAT BREEDER Temperature 36.3 ??C (97.3 ??F) 10/23/2023 11:[address] Respiratory Rate 20 10/23/2023 6:30 PM CAT BREEDER Oxygen Saturation 94% 10/23/2023 6:30 PM CAT BREEDER Inhaled Oxygen Concentration - - Weight 120 kg (264 lb 12.4 oz) 10/23/2023 11:14 AM CAT BREEDER Height 148 cm (4' 10.27) 05/29/2022 3:32 PM CDT Body Mass Index 54.83 05/29/2022 3:32 PM CDT Plan of Treatment Not on file Medical Devices Implanted Type Area Clinical Outcomes Manager Device Identifier Shelf Expiration Date Model / Serial / Lot Ankle Implant Ankle Implant Left: Ankle Intrauterine Device Intrauterine Device Uterus Procedures Procedure Name Priority Date/Time Associated Diagnosis Comments BASIC METABOLIC PANEL, S/P STAT 10/23/2023 1:16 PM CAT BREEDER THYROID-STIMULATING HORMONE-SENSITIVE (S-TSH) STAT 10/23/2023 1:16 PM CAT BREEDER from Last 3 Months or Most Recently Relevant to Health Maintenance Results * S-TSH (Thyroid-Stimulating Hormone - Sensitive) (10/23/2023 1:16 PM CAT BREEDER) Pathologist [facility] TSH, Sensitive 3.5 0.3 - 4.2 mIU/L 10/23/2023 2:24 PM CAT BREEDER DTL Blood (Blood, Venous) 10/23/2023 1:16 PM CAT BREEDER 10/23/2023 1:42 PM CAT BREEDER Efrain New P.A.-C. LAB BLOOD ADD-ON [facility] [address] [place] [address], [place] [facility] [address] [place] [address] * Basic Metabolic Panel (10/23/2023 1:16 PM CAT BREEDER) Potassium, P 4.3 3.6 - 5.2 mmol/L 10/23/2023 1:42 PM CAT BREEDER STMA Sodium, P 140 135 - 145 mmol/L 10/23/2023 1:42 PM CAT BREEDER STMA Chloride, P 107 98 - 107 mmol/L 10/23/2023 1:42 PM CAT BREEDER STMA Bicarbonate, P 25 22 - 29 mmol/L 10/23/2023 1:42 PM CAT BREEDER STMA Anion Gap, P 8 7 - 15 10/23/2023 1:42 PM CAT BREEDER STMA BUN (Blood Urea Nitrogen), P 16 6 - 21 mg/dL 10/23/2023 1:42 PM CAT BREEDER STMA Creatinine 0.97 0.59 - 1.04 mg/dL 10/23/2023 1:42 PM CAT BREEDER STMA Estimated GFR (eGFR) 79 >=60 mL/min/BSA 10/23/2023 1:42 PM CAT BREEDER STMA Comment: Estimated GFR calculated using the 2020 CKD_EPI creatinine equation. Calcium, Total, P 9.4 8.6 - 10.0 mg/dL 10/23/2023 1:42 PM CAT BREEDER STMA Glucose, P 94 70 - 140 mg/dL 10/23/2023 1:42 PM CAT BREEDER STMA Blood (Blood, Venous) 10/23/2023 1:16 PM CAT BREEDER 10/23/2023 1:24 PM CAT BREEDER Efrain New P.A.-C. LAB BLOOD ADD-ON [facility] [address] [place] [address], [facility] STMA [facility] [address] [place] [address] from Last 3 Months or Most Recently Relevant to Health Maintenance Advance Directives For more information, please contact: [phone] * Full Code (Latest Code Status on File) Date Activated Date Inactivated Comments 07/18/2020 1:42 PM 07/24/2020 12:06 PM Question Answer Comments Full Code: Discussed * Full Code Date Activated Date Inactivated Comments 07/16/2020 5:26 PM 07/18/2020 1:42 PM Question Answer Comments Full Code: Discussed Care Teams Styrene Dehydration Reactor Operator Relationship Specialty Start Date End Date Gina Hatch APRN, C.N.P., M.S.N. [address] [place] [address] [place] [id number] PCP - General Family Medicine 01/15/20
--- OUTSIDE RECORDS SUMMARY | 2024-03-05 07:26 | XMS_ITS | Encounter Summary ---
Author Name Unknown Organization [facility] Address [address] [place] [address] Care Team Providers Care Vp Integrity Name Role Phone Neville Mcintosh MD Primary Care Provider [phone] Brock Norris MD Unavailable [phone] Andreina Gomes MD Unavailable [phone] Allan Romo MD Unavailable Unavailable Lele Buckley OD Unavailable [phone] Frw, None [facility] re Provider Leida Christianson MD Unavailable [phone] Encounter Details Date Type Department Care Team (Late st Contact Info) Description 09/26/2007 [facility] Inpatient Dept [address] [place] [phone] Frw, Inpatient Provider Social History Tobacco Use Types Packs/Day Years Used Date Smoking Tobacco: Never Comments:NO SECOND HAND SMOK E Alcohol Use Standard Drinks/Week Comments No 0 (1 standard drink = 0.6 oz pur e alcohol) Sex and Gender Information Value Date Recorded Sex Assigned at Not on file Gender Identity Not on file Sexual Orientation Not on file documented as of this encounter Progress Notes * Allan Romo MD - 10/30/2007 3:38 PM CSTCONSULTATION REASON FOR CONSULTATION: Maxime is a 16-year-old resident of [facility] who was transferred to the Hospital after complaining of pain to the ankle. She evidently was getting out of the bath and somehow twisted her ankle. She had no obvious deformity initially, but complained of persistent pain and some swelling. She was subsequently taken to the Hospital for evaluation. X-rays were obtained in the Emergency Room. The patient is a 16 year old who has neurologic deficits. She is able to point out the area of the pain and the fact that she twisted her ankle. PHYSICAL EXAM: Clinically, she has no other apparent injuries. The ankle demonstrates mild swelling with intact skin. Her circulation and sensation appear to be intact. Her x-rays demonstrate a trimalleolar ankle fracture with some displacement. ASSESSMENT/PLAN: The patient and her mother were assessed of the information and recommended to undergo open reduction internal fixation of the fracture site. She will have a preoperative assessment accomplished, and will be forwarded to the operating room pending the outcome of that for open reduction internal fixation of the ankle fracture. Allan Romo M.D. CARLITOS/dario cc: ERY AND UPHOLSTERY ESTIMATOR * Allan Romo MD - 10/08/2007 3:59 PM CSTPROCEDURE/OPERATIVE REPORT Date of Procedure: 09/26/2007 PREOPERATIVE DIAGNOSES: Right ankle trimalleolar fracture with displacement. POSTOPERATIVE DIAGNOSES: Right ankle trimalleolar fracture with displacement. OPERATION: Open reduction internal fixation. SURGEON: Allan Romo M.D. ANESTHESIA: Spinal MAC. PROCEDURE: The patient was brought to the operating room. She was positioned and spinal anesthetic was administered. After this was achieved she was then prepared for right ankle surgery with a sterile prep and drape after a tourniquet was affixed to the proximal thigh. After examination, the left was elevated, exsanguinated, and the tourniquet was inflated. After repositioning, a C-arm was rolled into place. The ankle was again reviewed. A linear incision was then made over the lateral aspect. The hematoma was evacuated and the area irrigated. The fracture was identified, this was then mobilized. This was reduced anatomically and clamped. Following this measured screws were placed to repair the obliquitative fracture obtaining anatomic contact and shinto. Good purchase was obtained. This being achieved, the medial ankle was then opened. After evacuation of the hematoma the area was irrigated, the talar dome appeared to be intact. After positioning of the medial fragment a pin was placed. Following this a measured screw 40 cancellous was placed obtaining good purchase. There appeared with C-arm to very good reduction and shinto of anatomy. After further irrigation of the incisional areas closure was accomplished with #1 Vicryl, 2-0 Vicryl, and nylon. A sterile dressing was applied, followed by a cast splint. The patient was then released from the tourniquet. The patient was then forwarded to the recovery room in satisfactory condition having tolerated her surgery well. Keke Jimenez cc: ERY AND UPHOLSTERY ESTIMATOR documented in this encounter Plan of Treatment Not on file documented as of this encounter Visit Diagnoses Not on filedocumented in this encounter Care Teams Vp Integrity Relationship Specialty Start Date End Date Neville Mcintosh MD [facility] [address] [place] [address] PCP - General 12/11/00 11/01/13 Brock Norris MD [place] [address] [employer] [address] [place] [phone] PCP - ENT 12/11/00 02/03/24 Andreina Gomes MD [place] [address] [employer] [address] [place] [phone] PCP - Urology 06/12/06 02/03/24 Allan Romo MD [facility] [address] [place] [address] PCP - Orthopaedics 12/23/07 06/26/23 Lele Buckley OD [facility] [place] [address] [place] [address] PCP - Ophthalmology 08/25/09 02/03/24 Frw, None PCP - General Family Practice 11/02/13 07/18/[address] [id number] PCP - General 06/26/23 Leida Christianson MD [address] [place] [address] Assigned OBGYN Provider 01/31/24 Dr. Naresh Herrera [address] [address] Psychiatrist 11/18/14 02/01/24 Amy Magallanes Psychiatrist 01/16/24 documented as of this encounter
--- OUTSIDE RECORDS SUMMARY | 2024-03-05 07:26 | XMS_ITS | Encounter Summary ---
Author Name Unknown Organization [facility] Address [address] [place] [address] Care Team Providers Care Traveling Repair Accountant Name Role Phone Brock Norris MD Unavailable [phone] Andreina Gomes MD Unavailable [phone] Lele Buckley OD Unavailable [phone] [facility] re Provider Leida Christianson MD Unavailable [phone] Encounter Details Date Type Department Care Team (Latest Contact Info) Description 02/02/2024 Travel Social History Tobacco Use Types Packs/Day [...] on filedocumented in this encounter Care Teams Traveling Repair Accountant Relationship Specialty Start Date End Date Brock Norris MD [facility] [address] [place] [address] [address] [place] [address] PCP - ENT 12/11/00 02/03/24 Andreina Gomes MD [facility] [place] [address] [place] [phone] PCP - Urology 06/12/06 02/03/24 Lele Buckley OD [facility] [place] [address] [place] [address] PCP - Ophthalmology 08/25/09 02/03/[address] [address] PCP - General 06/26/23 Leida Christianson MD [address] [place] [address] Assigned OBGYN Provider 01/31/24 Amy Magallanes Psychiatrist 01/16/24 documented as of this encounter
--- OUTSIDE RECORDS SUMMARY | 2024-03-05 07:26 | XMS_ITS | Encounter Summary ---
Author Name Unknown Organization [facility] Address [address] [place] [address]. [place] [address] Care Team Providers Care Software Packaging Engineer Name Role Phone Brock Norris MD Unavailable [phone] Andreina Gomes MD Unavailable [phone] Lele Buckley OD Unavailable [phone] [facility] [place] re Provider Encounter Details Date Type Department Care Team (Late st Contact Info) Description 12/23/2023 Medical Correspondence [facility] Info [facility]mt [facility] [address] [place] [phone] Scan, Non-Provider Social History Tobacco Use Types Packs/Day Years [...] on filedocumented in this encounter Care Teams Software Packaging Engineer Relationship Specialty Start Date End Date Brock Norris MD [facility] [place] [address] [place] [address] [address] [place] [address] PCP - ENT 12/11/00 02/03/24 Andreina Gomes MD [facility] [place] [address] [place] [phone] PCP - Urology 06/12/06 02/03/24 Lele Buckley OD [facility] [place] [address] [place] [address] PCP - Ophthalmology 08/25/09 02/03/[address] [address] PCP - General 06/26/23 Dr. Naresh Herrera [address] [id number] Psychiatrist 11/18/14 02/01/24 documented as of this encounter
--- OUTSIDE RECORDS SUMMARY | 2024-03-05 07:26 | XMS_ITS | Encounter Summary ---
Author Name Unknown Organization [facility] Address [address] [place] [address]. [place] [address] Care Team Providers Care Fold Skiver Name Role Phone Brock Norris MD Unavailable [phone] Andreina Gomes MD Unavailable [phone] Lele Buckley OD Unavailable [phone] [facility] [place] re Provider Reason for Referral * Consultation (Routine) - Pending Review Specialty Diagnoses / Procedures Referred By Contac t Referred To Contact instructional design manager Diagnoses Morbid (severe) obesity due to excess calories (H) Body mass index (BMI) 60.0-69.9, adult (H) Personal history of pulmonary embolism Type 2 diabetes mellitus with other specified complication (H) Obesity, unspecified Hypothyroidism Unspecified lack of expected normal physiological development in childhood Sleep apnea Emotional lability Presence of (intrauterine) contraceptive device Insomnia Personal history of other specified conditions Depression Anxiety Chanelle Zee MD [facility] [address] [place] [address] Referral ID Status Reason Start Date Expiration Date V isits Requested Visits Authorized [id number] Pending Review 12/25/2023 12/24/2024 1 1 Question Answer Reason for Referral: Bladder Scheduling Instructions: [facility] will call you to coordinate your care as prescribed by your provider. If you don't hear from a accounting representative within 2 business days, please call . Comments Please be aware that coverage of these services is subject to the terms and limitations of your health insurance plan. Call member services at your health plan with any benefit or coverage questions. Referral Transcribed by external fax Provider: CHANELLE ZEE affiliated with [facility] [address] [facility] [address] . [place]: [place] If yes was is the [place] Authorization Number: Phone number: [phone] Fax number: [phone] [facility] will call you to coordinate your care as prescribed by your provider. If you don't hear from a accounting representative within 2 business days, please call . TING GRAY CLOTH TENDER Encounter Details Date Type Department Care Team (Latest Contact Info) Description 12/25/2023 Transcribe Orders GENERIC EXTERNAL DATA DEPARTMENT [...] history of other specified conditions; Depression; Anxiety Social History Tobacco Use Types Packs/Day Years [...] as of this encounter Plan of Treatment Scheduled Referrals Name Type Priority Associated Diagnoses Orde r Schedule Tavern Operator Social Service Agency Director Referral Referral Routine Morbid (severe) obesity due to excess calories (H) Body mass index (BMI) 60.0-69.9, adult (H) Personal history of pulmonary embolism Type 2 diabetes mellitus with other specified complication (H) Obesity, unspecified Hypothyroidism Unspecified lack of expected normal physiological development in childhood Sleep apnea Emotional lability Presence of (intrauterine) contraceptive device Insomnia Personal history of other specified conditions Depression Anxiety Expected: 12/25/2023 (Approximate), Expires: 12/25/2024 documented as of this encounter Visit Diagnoses Diagnosis Morbid (severe) obesity due to excess calories (H)- Primary Body mass index (BMI) 60.0-69.9, adult (H) Personal history of pulmonary embolism Type 2 diabetes mellitus with other specified complication (H) Obesity, unspecified Hypothyroidism Unspecified hypothyroidism Unspecified lack of expected normal physiological development in childhood Sleep apnea Unspecified sleep apnea Emotional lability Presence of (intrauterine) contraceptive device Presence of intrauterine contraceptive device Insomnia Insomnia, unspecified Personal history of other specified conditions Depression Depressive disorder, not elsewhere classified Anxiety Anxiety state, unspecified documented in this encounter Care Teams Fold Skiver Relationship Specialty Start Date End Date Brock Norris MD [facility] [place] [address] [place] [address] PCP - ENT 12/11/00 02/03/24 Andreina Gomes MD [facility] [place] [address] [place] [address] PCP - Urology 06/12/06 02/03/24 Lele Buckley OD [facility] [address] [place] [address] PCP - Ophthalmology 08/25/09 02/03/[address] [address] PCP - General 06/26/23 Dr. Naresh Herrera [address] [address] Psychiatrist 11/18/14 02/01/24 documented as of this encounter
--- OUTSIDE RECORDS SUMMARY | 2024-03-05 07:26 | XMS_ITS | Encounter Summary ---
Author Name Unknown Organization [facility] Address [address] [facility] [place] [address] Care Team Providers Care Survey Field Technician Name Role Phone Brock Norris MD Unavailable [phone] Andreina Gomes MD Unavailable Lele Buckley OD Unavailable [phone] [facility] Primary [place] re Provider Reason for Visit * Reason Comments Establish Care CFP Encounter Details Date Type Department Care Team (Latest Contact Info) Description 01/14/2024 9:30 AM CORSETS SALESPERSON Office Visit [facility] [address] [place] [address] 3rd Floor,[address] [facility] [address] [place] [address] Leida Christianson MD [address] [address] Menorrhagia with regular cycle (Primary Dx); Lack of expected normal physiological development; KALIE (obstructive sleep apnea); Type 2 diabetes mellitus without complication, unspecified whether vermin exterminator insulin use (H); Psychosis, unspecified psychosis type (H); Class 3 severe obesity with serious comorbidity and body mass index (BMI) of 50.0 to 59.9 in adult, unspecified obesity type (H) Social History Tobacco Use Types Packs/Day Years [...] on file documented as of this encounter Last Filed Vital Signs Vital Sign Reading Time Taken Comments Blood Pressure 135/83 01/14/2024 10:24 AM CORSETS SALESPERSON Pulse 49 01/14/2024 10:24 AM CORSETS SALESPERSON Temperature - - Respiratory Rate - - Oxygen Saturation - - Inhaled Oxygen Concentration - - Weight 121.1 kg (267 lb) 01/14/2024 10:24 AM CORSETS SALESPERSON Height 143.5 cm (4' 8.5) 01/14/2024 10:24 AM CS T Body Mass Index 58.81 01/14/2024 10:24 AM CORSETS SALESPERSON documented in this encounter Patient Instructions * Patient Instructions* Natalie Floyd LPN - 01/14/2024 9:30 AM CORSETS SALESPERSON Thank you for trusting us with your care! If you need to contact us for questions about: Symptoms, Scheduling & Medical Questions; Non-urgent (2-3 day response) [employer] message, Urgent(needing response today) [phone] (if after 3:30pm next day response) Prescriptions: Please call your Pharmacy Billing: Jcarlos [phone] or Physicians:[phone] ETS SALESPERSON documented in this encounter Progress Notes * Natalie Floyd LPN - 01/14/2024 9:30 AM CST Chief Complaint Patient presents with Establish Care CFP Natalie Floyd LPN ETS SALESPERSON * Leida Christianson MD - 01/14/2024 9:30 AM CST [facility] Clinic Gynecology Visit Reason for Visit: hysterectomy consult HPI: Maxime Stack is a 33 year old F with a history notable for KALIE, developmental delay, T2DM, hypothyroidism and PE here to discuss hysterectomy for management of menorrhagia. Her mother Twila, who is her guardian and medical/legal decision maker, made this appointment to discuss hysterectomy as a strategy for controlling her heavy menstrual bleeding. Maxime recently had her Gabby exchanged for a Mirena and while it is adequately managing her bleeding, she has developed several symptoms including increased mood lability and hallucinations since having the Mirena placed. According to Twila, she had a Gabby for years prior to the Mirena and she never had any similar symptoms. Twila explained that she wanted to explore hysterectomy as a definitive option for management of thisbleeding because having to the IUDs placed is very difficult for Maxime. OBHx OB History No obstetric history on file. 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 Short stature Unspecified otitis media recurrent Ventricular septal defect Past Surgical History: Procedure Laterality Date HC OPEN TX TRIMALLEOLAR ANKLE FX WO FIX POSTERIOR LIP 09/26/07 right HC REMOVAL ADENOIDS,PRIMARY,12+ Y/O 07/29/02 [facility] REPR VSD age 6-7 months Repair VSD with patching [facility] CREATE EARDRUM OPENING,GEN ANESTH 07/29/02 bilateral Current Outpatient Medications: ARIPiprazole (ABILIFY) 20 MG tablet, Take 20 mg by mouth every morning, Disp: , Rfl: lamoTRIgine (LAMICTAL) 200 MG tablet, Take 200 mg by mouth every morning, Disp: , Rfl: levothyroxine (SYNTHROID/LEVOTHROID) 137 MCG tablet, Take 137 mcg by mouth daily before breakfast, Disp: , Rfl: OLANZapine (ZYPREXA) 15 MG tablet, Take 7.5 mg by mouth At Bedtime, Disp: , Rfl: OLANZapine (ZYPREXA) 5 MG tablet, Take 1 tablet (5 mg) by mouth daily as needed (breakthrough anxiety or hallucinations), Disp: 30 tablet, Rfl: 0 Pediatric Multiple Vitamins (FLINSTONES GUMMIES OMEGA-3 DHA) CHEW, Take 2 chew tab by mouth daily, Disp: , Rfl: propranolol (INDERAL) 60 MG tablet, Take 1 tablet by mouth 2 times daily, Disp: , Rfl: risperiDONE (RISPERDAL) 2 MG tablet, Take 2 mg by mouth 2 times daily, Disp: , Rfl: topiramate (TOPAMAX) 50 MG tablet, Take 50 mg by mouth 2 times daily, Disp: , Rfl: traZODone (DESYREL) 50 MG tablet, Take 1-2 tablets (50-100 mg) by mouth nightly as needed for sleep, Disp: 30 tablet, Rfl: 0 Allergies Allergen Reactions No Known Allergies Family History Problem Relation Age of Onset Family History Negative Other Hypertension Maternal Grandmother Hypertension Maternal Grandfather Social History Socioeconomic History Marital status: Single Spouse name: Not on file Number of children: 0 Years of education: Not on file Highest education level: Not on file Occupational History Not on file Tobacco Use Smoking status: Never Smokeless tobacco: Not on file Tobacco comments: NO SECOND HAND SMOKE Substance and Sexual Activity Alcohol use: No Drug use: No Sexual activity: Never Other Topics Concern Not on file Social History Narrative Not on file Social Determinants of Health Financial Resource Strain: Not on file Food Insecurity: Not on file Transportation Needs: Not on file Physical Activity: Not on file Stress: Not on file Social Connections: Not on file Interpersonal Safety: Not on file Housing Stability: Not on file ROS: ROS negative except as noted in HPI Physical Exam BP 135/83 Pulse (!) 49 Ht 1.435 m (4' 8.5) Wt 121.1 kg (267 lb) BMI 58.81 kg/m?? Gen: Well-appearing, NAD CV: Well perfused Pulm: NWOB Assessment/Plan: Maxime Stack is a 33 year old G0 presenting for a hysterectomy consult. - Discussed the various factors, including her KALIE, htn, history of PE and BMI >55, that would make performing a major surgery unsafe for Maxime at this time. Her KALIE presents one of the more significant barriers. In the op note of her EUA and IUD replacement under [facility] in November, it was noted that her anesthesiologist had significant difficulties with maintaining her oxygen saturation and shecould not tolerate any trendelenburg. Inability to tolerate trendelenburg eliminates laparoscopic hysterectomy as an option and she is not a candidate for vaginal hysterectomy due to her lack of obstetric history and habitus. The only remaining option is open abdominal hysterectomy which is associated with significantly increased time under anesthesia and overall morbidity as well as a much more difficult recovery. An open surgery is especially inadvisable for her because her T2DM, history of PE, hypertension and habitus all put her at increased risk for blood clot and wound complications during and after a long surgery. - Reiterated the recommendation that she be seen by ENT to further evaluate her KAILE. If her KALIE becomes controlled enough for her to be able to tolerate trendelenburg for multiple hours, laparoscopichysterectomy might be more feasible in the future. - Continue using low dose levonorgestrel IUDs to manage bleeding as that seems to have worked well in the past. We discussed that mood lability is not a known complication of progestin IUDs, but we could switch back to Gabby given Maxime did well on this in the past. Staffed and seen with Dr. Christianson. Ronaldo Camacho, PGY-1 OBGYN Attending Addendum I, Leida Christianson, saw Maxime Stack with the resident, Dr. Camacho, and agree with their findings and plan of care as documented in the above note. I personally reviewed vitals, meds, labs, operative reports. Garcia findings: 33 year old G0 with AUB managed with Kyleena IUD, here with her mother/legal guardianto discuss hysterectomy. I agree with the plan to continue to use a progestin IUD at this time given Maxime' risk for complications during a major surgery such as hysterectomy. I encouraged Maxime to seek care for KALIE both for her penitentiary health and to see if she could be better optimized for surgery in the future (both for IUD insertion which will be needed in the future as well as consideration for hysterectomy or other major surgery). Leida Christianson MD, MSCI Date of Service: 01/14/2024 ETS SALESPERSON documented in this encounter Plan of Treatment Not on file documented as of this encounter Visit Diagnoses Diagnosis Menorrhagia with regular cycle- Primary Excessive or frequent menstruation Lack of expected normal physiological development Lack of normal physiological development, unspecified KALIE (obstructive sleep apnea) Obstructive sleep apnea (adult) (pediatric) Type 2 diabetes mellitus without complication, unspecified whether penitentiary insulin use (H) Psychosis, unspecified psychosis type (H) Class 3 severe obesity with serious comorbidity and body mass index (BMI) of 50.0 to 59.9 in adult, unspecified obesity type (H) documented in this encounter Care Teams Survey Field Technician Relationship Specialty Start Date End Date Brock Norris MD [facility] [address] [place] [address] PCP - ENT 12/11/00 02/03/24 Andreina Gomes MD [facility] [address] [place] [phone] PCP - Urology 06/12/06 02/03/24 Lele Buckley OD [facility] [address] [place] [address] PCP - Ophthalmology 08/25/09 02/03/[address] [address] PCP - General 06/26/23 Dr. Naresh Herrera [address] [id number] Psychiatrist 11/18/14 02/01/24 documented as of this encounter
--- OUTSIDE RECORDS SUMMARY | 2024-03-05 07:26 | XMS_ITS | Clinical Summary ---
Author Name Unknown Organization [facility] Address [address] [place] [address] Care Team Providers Care Environmental Designer Name Role Phone Gina Hatch APRN, C.NHarpal, M.S.N. Primary Ca re Provider Source Comments Patient records contain information from all sites at [facility]. For routine questions regarding patient records, call [phone] during business hours, M-F 8:00 AM - 5:00 PM Central Time. Record requests for emergency care only can be directed to [phone] at any time.[facility] Allergies No known active allergies Medications Medication Sig Dispensed Refills Start Date End Date Status phenylephrine-pramo gxoy-ldehwxgl-evxad petrolatum (PREPARATION H) 0.25-1 % creamIndications:Fi ssure [...] Overview: Added automatically from request for surgery [id number] Ventricular Septal Defect Repair Status Post 08/2020 Embolus Pulmonary Personal History 07/16/2020 Hypothyroidism On Replacement 03/04/2017 Morbid Obesity Body Mass Ind ex >= 35 with Comorbid Condition 12/22/2016 Overview: Body mass index (BMI) 40.0-44.9, adult Rule activated problem due to BMI 40-44 posted on 12/22 at 14:51 LIBRARIAN HELPER. Stone Common Duct 09/05/2016 Developmental Delay Physiological 02/13/2014 Overview: DELAY DEVELOPMENT Resolved Problems Problem Noted Date Diagnosed Date Resolved Date Thrombosis Deep Vein Acute Calf Left 07/16/2020 11/16/2020 Menometrorrhagia 07/16/2020 11/16/2020 Overview: Added automatically from request for surgery [id number] Bleeding Vaginal 07/16/2020 07/28/2020 Overview: Added automatically from request for surgery [id number] Pain Joint Ankle Right 03/16 Immunizations Name [...] quad (FLUZONE/FLUARIX) (6 months and older)(PF) 08/15/2020,11/26/2018,08/07/2017,2015,08/24/2014 Family History Relation Name Status Comments Father Alive Mother Alive Social History Tobacco Use Types Packs/Day [...] week 07/28/2020 How often do you attend christianity or gnosticism serv ices? Never 07/28/2020 Do you belong to any clubs o r organizations such as christianity groups, unions, fraternal or athletic groups, or [...] Answer Date Recorded PHQ-2 Score 0 05/29/2022 [facility]ational [facility] Questionnaire Answer [...] Comments Blood Pressure 141/76 10/23/2023 6:30 PM LIBRARIAN HELPER Pulse 57 10/23/2023 6:30 PM LIBRARIAN HELPER Temperature 36.3 ??C (97.3 ??F) 10/23/2023 11:[address] Respiratory Rate 20 10/23/2023 6:30 PM LIBRARIAN HELPER Oxygen Saturation 94% 10/23/2023 6:30 PM LIBRARIAN HELPER Inhaled Oxygen Concentration - - Weight 120 kg (264 lb 12.4 oz) 10/23/2023 11:14 AM LIBRARIAN HELPER Height 148 cm (4' 10.27) 05/29/2022 3:32 PM CDT Body Mass Index 54.83 05/29/2022 3:32 PM CDT Plan of Treatment Health Maintenance Due Date Last Done Comments Cervical Cancer Screening 1989 Hepatitis C Screening 1990 COVID-19 Vaccine ( season) 2023 Influenza Vaccine (#1) 2023 , 10/19/2021, 10/05/2021, Additional history exists Depression Screening (Annual PHQ-2) 11/18/2023 Glucose Test for Med Monitoring 10/23/2024 10/23/2023, 06/26/2023, 06/05/2022, Additional history exists Thyroid Stimulating Hormone (TSH) test for thyroid function 10/23/2024 10/23/2023, 06/05/2022, 05/26/2021, Additional history exists DTaP,Tdap,and Td Vaccines (8 - Td or Tdap) 05/26/2031 05/26/2021, 02/27/2011, 03/24/2003, Additional history exists Hepatitis B Vaccines Completed 02/08/2000, 07/11/1999, 03/30/1999 HPV Vaccines Aged Out No longer eligi ble based on patient's age to complete this topic Pneumococcal vaccine (0-64 years) Aged Out No longer eligible based on patient's age to complete this topic Medical Devices Implanted Type Area Chairman & Chief Executive Officer Device Identifier Shelf Expiration Date Model / Serial / Lot Ankle Implant Ankle Implant Left: Ankle Intrauterine Device Intrauterine Device Uterus Procedures Procedure Name Priority Date/Time Associated Diagnosis Comments BASIC METABOLIC PANEL, S/P STAT 10/23/2023 1:16 PM LIBRARIAN HELPER THYROID-STIMULATING HORMONE-SENSITIVE (S-TSH) STAT 10/23/2023 1:16 PM LIBRARIAN HELPER from Last 3 Months or Most Recently Relevant to Health Maintenance Results * S-TSH (Thyroid-Stimulating Hormone - Sensitive) (10/23/2023 1:16 PM LIBRARIAN HELPER) Pathologist [facility] TSH, Sensitive 3.5 0.3 - 4.2 mIU/L 10/23/2023 2:24 PM LIBRARIAN HELPER DTL Blood (Blood, Venous) 10/23/2023 1:16 PM LIBRARIAN HELPER 10/23/2023 1:42 PM LIBRARIAN HELPER Efrain New P.A.-C. LAB BLOOD ADD-ON [facility] [place] [address] [place] [address], [facility] [address] [place] [address] * Basic Metabolic Panel (10/23/2023 1:16 PM LIBRARIAN HELPER) Pathologist [facility] Potassium, P 4.3 3.6 - 5.2 mmol/L 10/23/2023 1:42 PM LIBRARIAN HELPER [facility] Sodium, P 140 135 - 145 mmol/L 10/23/2023 1:42 PM LIBRARIAN HELPER [facility] Chloride, P 107 98 - 107 mmol/L 10/23/2023 1:42 PM LIBRARIAN HELPER [facility] Bicarbonate, P 25 22 - 29 mmol/L 10/23/2023 1:42 PM LIBRARIAN HELPER [facility] Anion Gap, P 8 7 - 15 10/23/2023 1:42 PM LIBRARIAN HELPER [facility] BUN (Blood Urea Nitrogen), P 16 6 - 21 mg/dL 10/23/2023 1:42 PM LIBRARIAN HELPER [facility] Creatinine 0.97 0.59 - 1.04 mg/dL 10/23/2023 1:42 PM LIBRARIAN HELPER [facility] Estimated GFR (eGFR) 79 >=60 mL/min/BSA 10/23/2023 1:42 PM LIBRARIAN HELPER [facility] Comment: Estimated GFR calculated using the 2020 CKD_EPI creatinine equation. Calcium, Total, P 9.4 8.6 - 10.0 mg/dL 10/23/2023 1:42 PM LIBRARIAN HELPER [facility] Glucose, P 94 70 - 140 mg/dL 10/23/2023 1:42 PM LIBRARIAN HELPER [facility] Blood (Blood, Venous) 10/23/2023 1:16 PM LIBRARIAN HELPER 10/23/2023 1:24 PM LIBRARIAN HELPER Efrain New P.A.-C. LAB BLOOD ADD-ON [facility] [address] [place] [address], [place] [facility] [address] [place] [address] from Last 3 Months or Most Recently Relevant to Health Maintenance Advance Directives For more information, please contact: [phone] * Full Code (Latest Code Status on File) Date Activated Date Inactivated Comments 07/18/2020 1:42 PM 07/24/2020 12:06 PM Question Answer Comments Full Code: Discussed * Full Code Date Activated Date Inactivated Comments 07/16/2020 5:26 PM 07/18/2020 1:42 PM Question Answer Comments Full Code: Discussed Care Teams Environmental Designer Relationship Specialty Start Date End Date Gina Hatch APRN, C.N.P., M.S.N. [address] [place] [phone] PCP - General Family Medicine 01/15/20
--- OUTSIDE RECORDS SUMMARY | 2024-03-05 07:26 | XMS_ITS | Encounter Summary ---
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 disorder) TY PATIÑO, KATHERINE Licensed Mental Health Professional (LMHP), [facility] [phone] * Zofia Ramirez LPCC, LADC - 02/02/2024 11:36 PM CDT Maxime Stack February 02, 2024 Plan of Care Hand-off Note Patient Care Path: observation Plan for Care: Patient presents to the ED due to increasing physical aggression. Patient has a history of anxiety,developmental delay, intellectual disability and chromosomal abnormalities. Pt's mother is her legal guardian and resident care aid. Pt needs help performing ADL's, specifically showering and toileting. Pt is not able to communicate very well as her words are difficult to make out and her intellectual disability. Pt's mother states the aggression has been increasing the past two months as well as sleeplisness. Pt's mother is making a connection with the timing of the Zoey IUD being put in with the increase in symptoms. She also reports patient experiencing auditory hallucinations (hearing her paren ts when they're not talking) and visual hallucinations (seeing people). Pt states she isn't having thoughts of hurting anyone and pt's mother states she doesn't understand the concept of suicide. Pt has no previous history of psychiatric hospitalization. She has a history of being in a intermediate and attending day treatment, as well as in home care. Pt's mother states the person that was providing in home care, quit two weeks ago and the agency hasn't found a replacement. Pt recently started with a new psychiatrist on 01/16/24. Pt's mother has the concern about the IUD having an impact on her mood and also feels her medications may need evaluating. Pt's mother also reports they have been working with a social media director with the county however was told that she would need to research services on her own. Pt's mother and stepfather express their exasperation as patient's care givers and feeling like they're not getting the help to address patient's symptoms. Due to patient's need for assitance with ADLs and challenges with communication, it may be challenging to place in an inpatient psychiatric setting. Additionally, it appears patient may need more assistance/support in alf care. After consultation with ED provider, it was agreed that patient will be placed on observation withconsults for Social Work (to provide assistance in services) and Psychiatry (to assist with medicati on). Identified Goals and Safety Issues: (P) Impulsivity and elopment, patient is a vulnerable adult. Overview: (P) Twila Justin, Mother/Guardian, (P) Only allow calls and visits from designated visitors and care team members Legal Status: Legal Status at Admission: Guardian/ad litum Psychiatry Consult: Updated regarding plan of care. TY Wilkins, KATHERINE documented in this encounter Consult Notes * Ander, Marisel, LUCA PANAMA HAT HYDRAULIC PRESS OPERATOR - 02/04/2024 10:23 AM CDTAssociated Order(s): PSYCHIATRY IP CONSULT Images from the original note were not included. Psychiatry Consultation; Follow up Reason for Consult, requesting source: Follow-up, discharge recommendations Requesting source: Viki Olivares Labs and imaging reviewed, discussed with andra Olvera and Dr. Gutierrez. 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 Medical hx also notable for PCOS, hypothyroidism, DVT/PE, and VSD. She was brought to the ED due to increasing mood lability, insomnia, and agitation with increasing aggression at home. Patient was initially seen by psychiatry consult service yesterday and discharge to home was recommended. Mother initially was in agreement with discharge yesterday however patient escalated and refused to leave the ED. Mother then left without the patient discharging. It was determined that patient would remain in the ED as a social border with extended care following. I consulted with andra Olvera I addition to turf and grounds supervisor Luisa Yuen regarding this case. Recommendation remains for patient to discharge to home. Patient does appear to have a long history of behavior dysregulation which appears to be escalating recently. Additionally patient no longer has FIRE DEPARTMENT BATTALION CHIEF supports inhome as these ended several weeks ago. Mother/guardians do appear to be working to coordinate additional services yet have not been able to secure these. Patient has newly established psychiatric medication provider that mom is working with to develop long-term medication plan, next appointment is tomorrow 02/05/24. Mother has been coordinating with [facility] for additional supports and ideally is interested in intermediate placement. Per staff, FESTUS has been cooperative and redirectable. FESTUS was moved to a room with a recliner chair. She has been compliant with medications. She has been coloring. She was able to shower this morning. I went to see FESTUS with MIRNA Olvera. She was sitting in recliner coloring. She feels betterbut then says not good. She showered. She ate breakfast. She say she want to stay at hospital and points to the TV. She wants a TV in her room at home and wants to play her game. She says mom and dad crabby to me. FESTUS does acknowledge that medication has helped her feel less crabby, specifically prn olanzapine. Discussed the importance of going home so that she can meet with her psychiatric provider tomorrow. She asked if she could watch TV at home. [facility] informed her that they would be calling her mom about returning home. FESTUS was receptive to his and gave a thumbs up. Per staff reports, Mom was agreeable to pick FESTUS up from the ED. FESTUS discharged was discharge to Mom/guardian. Current Medications: ARIPiprazole 25 mg Oral QAM DULoxetine 60 mg Oral Daily lamoTRIgine 200 mg Oral QAM levothyroxine 137 mcg Oral QAM AC propranolol 60 mg Oral BID topiramate 50 mg Oral Daily Followed by [START ON 02/09/2024] topiramate 100 mg Oral Q12H VINCENZO (07/07) topiramate 100 mg Oral QPM traZODone 100 mg Oral Daily at 8 pm MSE: Appearance: awake, alert, adequately groomed, dressed in hospital scrubs, and appeared as age stated Attitude: cooperative Eye Contact: fair Mood: better Affect: mood congruent and labile Speech: clear, coherent and mumbling Psychomotor Behavior: no evidence of tardive dyskinesia, dystonia, or tics Thought Process: concrete Associations: no loose associations Thought Content: no evidence of suicidal ideation or homicidal ideation and some reports of visual hallucinations overnight per staff yet patient does not appear to be responding to internal stimuli during assessment, patient does not report AH/VH Insight: limited Judgement: limited Oriented to: time, person, and place Attention Span and Concentration: limited Recent and Remote Memory: limited Vital signs: Temp: 98.4 ??F (36.9 ??C) Temp src: Oral BP: 132/66 Pulse: 67 Resp: 20 SpO2: 95 % O2 Device: None (Room air) Estimated body mass index is 58.81 kg/m?? as calculated from the following: Height as of 01/14/24: 1.435 m (4' 8.5). Weight as of 01/14/24: 121.1 kg (267 lb). 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 Mom reports that patient has continued to struggle with worsening symptoms since an IUD was placed in November. Mom reports worsening sleep further complicated by KALIE and CPAP use. Staff reported concerns for possible auditory and visual hallucinations however this wasnot observed during the assessment. At times patient kept requesting to look out in the hallway to see if her mom was there however mom was coming later today to visit. During the assessment FESTUS's mood was somewhat labile stating she likes the hospital and does not want to go home. Her irritability does appear somewhat baseline however there does seem to be ongoing conflict surrounding tablet use a nd boundaries parents attempt to enforce. She has been on many of her current medications for quitesometime and parents are unsure what medications are or aren't helpful. They have been without a psych med provider for the past year and have started seeing a new provider, next appointment is 02/05/24. Mom feels as though IUD is significant source of mood dysregulation. They have not been utilizing PRN medications. Mom spoke with pharmacist yesterday and increasing Topamax from 50mg twice daily to 50mg every morning and 100mg at bedtime which appears to have been a previous recommendation. Discussed further consideration of medication changes such as lowering Cymbalta to see if this could befurther worsening anxiety and agitation given past poor responses to antidepressants. Mom would prefer to only make one medication change at once noting in the past numerous medication changes were made at once and it was difficult to determine what was helpful. Patient has responded favorable to PRN olanzapine in the ED and parents are willing to try this as a short-term option until they can fol low-up with their established outpatient provider on 02/05/24. Discussed future considerations for guanfacine or clonidine to further target impulsivity. Parents would like ot explore GeneSight testing with outpatient provider. Patient denies SI/HI. Parents are in agreement that IP hospitalization and prolonged ED stay would likely not be beneficial for this patient. Parents are seeking additional social supports and inquired about respite services. Unfortunately respite is not a service that the ED can arrange and parents were directed to contact [facility]. Discussed discharge to home and follow-up with established outpatient supports. Psychiatry reconsulted to assist with disposition and discharge planning as patient was scheduled to discharge yesterday however became escalated and guardian left without patient discharging. Following consultation with care team, recommendation for patient to discharge to home remains. Patient has been cooperative, medication compliant, and verbally redirectable in the ED aside from escalation with parents yesterday evening. Patient has established outpatient psychiatric medication provider who they will be meeting with tomorrow, 02/05/24. Guardian encouraged to discuss current medication regimen and plan moving forward and guardian has concerns that medications are no longer effective andwould like to slowly taper off of various medication in addition to complete GeneSight testing. At time of assessment patient did not appear to be a anger to herself of others and did not warrant continued hospitalization. Summary of Recommendations: Continue with increased Topamax dosing of 50mg every morning and 100mg at bedtime further targetingmood stabilization and aggression Continue olanzapine 5mg three times daily as needed for acute aggression/agitation in addition to reported break through hallucinations at home, discussed short-term use of this medication until patient can see established outpatient psychiatric medication provider on 02/05/24. Ideally would like towork toward antipsychotic monotherapy and limit polypharmacy Follow-up with established medical provider for ongoing IUD management and placement in addition toCPAP Follow-up with established social media director through [facility] to inquire about additional respite services and intermediate placement Discharge to home with outpatient supports, case discussed with attending provider and extended care HP. Marisel Worthington APRN CNP Consult/Liaison Psychiatry [facility] Contact information available via [facility] Paging/Directory If I am not available, then [facility] CL line ([phone]) should know who is covering our consult service. Much or all of the text in this note was generated through the use of enercastate voice to [employer]. Errors in spelling or words which appear to be out of contact are unintentional, may be present due having escaped editing * Britni Hardin LGSW - 02/03/2024 2:09 PM CDTAssociated Order(s): CARE MANAGEMENT / SOCIAL WORK IP CONSULT; CARE MANAGEMENT / SOCIAL WORK IP CONSULT Care Management Follow Up Length of Stay (days): 0 Expected Discharge Date: Additional Information: SW consulted for Trouble with behavior at home, family feels unsafe. Patient was assessed by DEC for behavioral concerns. SW does not follow patients in the ED with behavioral concerns needing GH placement or mental health respite care. ELIO Rdz LGSW Emergency Room Business Objects Architect Please contact the SW on the floor in which the patient is staying for any questions or concerns * Marisel Worthington APRN CNP - 02/03/2024 11:36 AM CDTAssociated Order(s): PSYCHIATRY IP CONSULT Images from the original note were not included. Initial Psychiatric Consult Consult date: February 03, 2024 Reason for Consult, requesting source: needs med mngmt, concern for safety of family at home Requesting source: attending provider Labs and imaging reviewed. Discussed with MIRNA Patiño and Dr. Burden. DEC Assessment reviewed from 02/02/24. Record review including consult at [facility] on 10/23/2023 and emergency room encounter on 06/26/23 at [facility]. 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 Medical hx also notable for PCOS, hypothyroidism, DVT/PE, and VSD. She was brought to the ED due to increasing mood lability, insomnia, and agitation with increasing aggression at home. Per DEC Assessment on 02/02/24: Patient presents to the ED due to increasing physical aggression. Patient has a history of anxiety,developmental delay, intellectual disability and chromosomal abnormalities. Pt's mother is her legal guardian and resident care aid. Pt needs help performing ADL's, specifically showering and toileting. Pt is not able to communicate very well as her words are difficult to make out and her intellectual disability. Pt's mother states the aggression has been increasing the past two months as well as sleeplisness. Pt's mother is making a connection with the timing of the Zoey IUD being put in with the increase in symptoms. She also reports patient experiencing auditory hallucinations (hearing her paren ts when they're not talking) and visual hallucinations (seeing people). Pt states she isn't having thoughts of hurting anyone and pt's mother states she doesn't understand the concept of suicide. Pt has no previous history of psychiatric hospitalization. She has a history of being in a intermediate and attending day treatment, as well as in home care. Pt's mother states the person that was providing in home care, quit two weeks ago and the agency hasn't found a replacement. Pt recently started with a new psychiatrist on 01/16/24. Pt's mother has the concern about the IUD having an impact on her mood and also feels her medications may need evaluating. Pt's mother also reports they have been working with a social media director with the county however was told that she would need to research services on her own. Pt's mother and stepfather express their exasperation as patient's care givers and feeling like they're not getting the help to address patient's symptoms. Due to patient's need for assitance with ADLs and challenges with communication, it may be challenging to place in an inpatient psychiatric setting. Additionally, it appears patient may need more assistance/support in alf care. After consultation with ED provider, it was agreed that patient will be placed on observation withconsults for Social Work (to provide assistance in services) and Psychiatry (to assist with medicati on). FESTUS was sitting in a chair in her room watching TV and coloring when I went to meet with her. MIRNA Echols was present as well. FESTUS tells me she wants to stay at the ED. She wants her tablet. She starts crying and states she doesn't want to go home. She says she fights at home. She fights with her mom and dad. Her mom makes her upset about her tablet. She wants to play candy crush. She tells me she also likes coloring and math. She has a friend that she likes to go an see. Denies SI/HI. She does not appear to be responding to internal stimuli. At times she appeared to be looking out the door asking if her mom was there. This did not appear to be a hallucination as she knows her mom is coming to visit her later today. She appears alert and fully oriented. She says she is willing to try as needed medications if she feels upset. Insight does appear limited and responses are delayed however patient was able to appropriately respond to questions. Phone call with MomTwila: 11/20/23- IUD placed and things have worsened, mood swings continue to increase. Prior to this she was redirectable, not as aggressive and not screaming. Mom reports ongoing conflict with tablet (mom restricts this to 3.5 hours a day)- when the timer goes off she used to goode an puff but would go to sleep. Now she has a very difficult time and gets dysregulated. FESTUS is very frustrated with dad as he enforces boundaries. DJ has been hitting Mom and Dad especially early afternoon when she becomes irritable. Mom has videos of DJ screaming and feels like provider do not do anything. Mom does not often give prn medications as she doesn't know when to give them once DJ has become so escalated. Momstates I want her a zombie but I need medications that help. Mom says FESTUS has not been sleeping which she thinks is a large contributing factor, Mom has an appointment on 03/05/24 to have IUD changedto a lower dosed hormone IUD as she attributes mood lability to the IUD placement. Mom is fearful for the safety of people in the house with FESTUS's increasing behaviors. Mom states they just switched psych med providers, they have only had one appointment with their current provider. Mom says FESTUS has been on the same medications for many years (some almost 20 years) and is unsure what is or isn't helpful. She does not believe that they have ever tried clonidine, guanfacine, or valproate. I returned later this afternoon to meet with DJ and parents together. Mom explains that FESTUS was in agroup home until last January when they pulled her out and took her back home. Mom was concerned thatthe intermediate was not providing enough activities for DJ. They no longer have a FIRE DEPARTMENT BATTALION CHIEF as mom reportsthe FIRE DEPARTMENT BATTALION CHIEF was inconsistent so they let them go. FESTUS does better with routine and consistency. Significant conflict at home surrounding tablet use as parents implement 3 hour limit. FESTUS was repeatedly asking to play her game. FESTUS has 2 cats and 2 dogs at home, she can name them. They have not been utilizing PRN medications at home. Mom feels as though the afternoon is the most difficult time for them. They see a new provider on 02/05/24 and want to talk about GeneSight testing and additional medication changes including long-term plan. Discussed prn medications that can be used for acute escalation of behaviors until patient can see established outpatient provider. Mom reports FESTUS constantly asks to go to the hospital. FESTUS did state several times that she wanted to stay in the ED. She was verballyredirected, at times did raise her voice yet was not physically aggressive. Past Psychiatric History: Record review indicates previous dx of anxiety, depression, unspecified psychosis, unspecified schizophrenia spectrum, intellectual disability, and impulse control disorder Parents report extensive past medication trials including lexapro, lamictal, ability, risperidone, ativan, topamax, trazodone, wellbutrin, ambien, cymbalta, melatonin, propranolol, effexor, buspar, haldol, and seroquel amongst others Substance Use and History: No substance use history. Record review indicates CBD gummies provided by parents. Past Medical History: PAST MEDICAL HISTORY: 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 Short stature Unspecified otitis media recurrent Ventricular septal defect PAST SURGICAL HISTORY: Past Surgical History: Procedure Laterality Date HC OPEN TX TRIMALLEOLAR ANKLE FX WO FIX POSTERIOR LIP 09/26/07 right HC REMOVAL ADENOIDS,PRIMARY,12+ Y/O 07/29/02 [facility] REPR VSD age 6-7 months Repair VSD with patching [facility] CREATE EARDRUM OPENING,GEN ANESTH 07/29/02 bilateral Family History: FAMILY HISTORY: Family History Problem Relation Age of Onset Family History Negative Other Hypertension Maternal Grandmother Hypertension Maternal Grandfather Social History: SOCIAL HISTORY: Social History Tobacco Use Smoking status: Never Smokeless tobacco: Not on file Tobacco comments: NO SECOND HAND SMOKE Substance Use Topics Alcohol use: No Currently residing with parents. Attends school Saturday/Sat/Saturday. Did have FIRE DEPARTMENT BATTALION CHIEF however recently lost this support. Has previous resided in intermediate however mom reported that she pulled DJ out of this due to concerns that the intermediate was not doing enough activities for her. Physical ROS: The 10 point Review of Systems is negative other than noted in the HPI or here. Medications: ARIPiprazole 25 mg Oral QAM DULoxetine 60 mg Oral Daily lamoTRIgine 200 mg Oral QAM levothyroxine 137 mcg Oral QAM AC propranolol 60 mg Oral BID topiramate 50 mg Oral Daily Followed by [START ON 02/09/2024] topiramate 100 mg Oral Q12H VINCENZO (07/07) topiramate 100 mg Oral QPM traZODone 100 mg Oral Daily at 8 pm Allergies: Allergies Allergen Reactions No Known Allergies Labs: No results found for this or any previous visit (from the past 48 hour(s)). Physical and Psychiatric Examination: BP (!) 141/64 Pulse 63 Temp 97.2 ??F (36.2 ??C) (Temporal) Resp 16 SpO2 96% Weight is 0 lbs 0 oz There is no height or weight on file to calculate BMI. Physical Exam: I have reviewed the physical exam as documented by by the medical team and agree with findings and assessment and have no additional findings to add at this time. Mental Status Exam: Appearance: awake, alert, adequately groomed, and dressed in hospital scrubs Attitude: cooperative Eye Contact: good Mood: anxious Affect: mood congruent and labile Speech: clear, coherent and mumbling Psychomotor Behavior: no evidence of tardive dyskinesia, dystonia, or tics and intact station, gaitand muscle tone Thought Process: concrete Associations: no loose associations Thought Content: no evidence of suicidal ideation or homicidal ideation and no evidence of psychotic thought Insight: limited Judgement: limited Oriented to: time, person, and place Attention Span and Concentration: limited Recent and Remote Memory: limited DSM-5 Diagnosis: Intellectual Disabilites 318.0 (71) Moderate 300.02 (F41.1) Generalized Anxiety Disorder 312.89 (F91.8) Other specified Disruptive, Impulse Control and Conduct Disorder Assessment: Maxime Stack is a 33 y/o female with a history of: Intellectual Disability (Chromosomal Abnormality), SELMA, and Unspecified Schizophrenia Spectrum, and impulse control disorder 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 Mom reports that patient has continued to struggle with worsening symptoms since an IUD was placed in November. Mom reports worsening sleep further complicated by KALIE and CPAP use. Staff reported concerns for possible auditory and visual hallucinations however this wasnot observed during the assessment. At times patient kept requesting to look out in the hallway to see if her mom was there however mom was coming later today to visit. During the assessment DJ's mood was somewhat labile stating she likes the hospital and does not want to go home. Her irritability does appear somewhat baseline however there does seem to be ongoing conflict surrounding tablet use a nd boundaries parents attempt to enforce. She has been on many of her current medications for quitesometime and parents are unsure what medications are or aren't helpful. They have been without a psych med provider for the past year and have started seeing a new provider, next appointment is 02/05/24. Mom feels as though IUD is significant source of mood dysregulation. They have not been utilizing PRN medications. Mom spoke with pharmacist yesterday and increasing Topamax from 50mg twice daily to 50mg every morning and 100mg at bedtime which appears to have been a previous recommendation. Discussed further consideration of medication changes such as lowering Cymbalta to see if this could befurther worsening anxiety and agitation given past poor responses to antidepressants. Mom would prefer to only make one medication change at once noting in the past numerous medication changes were made at once and it was difficult to determine what was helpful. Patient has responded favorable to PRN olanzapine in the ED and parents are willing to try this as a short-term option until they can fol low-up with their established outpatient provider on 02/05/24. Discussed future considerations for guanfacine or clonidine to further target impulsivity. Parents would like ot explore GeneSight testing with outpatient provider. Patient denies SI/HI. Parents are in agreement that IP hospitalization and prolonged ED stay would likely not be beneficial for this patient. Parents are seeking additional social supports and inquired about respite services. Unfortunately respite is not a service that the ED can arrange and parents were directed to contact [facility]. Discussed discharge to home and follow-up with established outpatient supports. Summary of Recommendations: Continue with increased Topamax dosing of 50mg every morning and 100mg at bedtime further targetingmood stabilization and aggression Continue olanzapine 5mg three times daily as needed for acute aggression/agitation in addition to reported break through hallucinations at home, discussed short-term use of this medication until patient can see established outpatient psychiatric medication provider on 02/05/24. Ideally would like towork toward antipsychotic monotherapy and limit polypharmacy Follow-up with established medical provider for ongoing IUD management and placement in addition toCPAP Follow-up with established social media director through [facility] to inquire about additional respite services Discharge to home with outpatient supports, case discussed with attending provider and extended care [facility]. Marisel Worthintgon APRN CNP Consult/Liaison Psychiatry [facility] Contact information available via [facility] Paging/Directory If I am not available, then [facility] CL line ([phone]) should know who is covering our consult service. * Zofia Ramirez, [facility] - 02/02/2024 7:23 AM CDTAssociated Order(s): DIAGNOSTIC EVALUATION CENTER (DEC) ASSESSMENT ORDER Diagnostic Evaluation Consultation Crisis Assessment Patient Name: Maxime Stack Age: [age] year old Legal Sex: female Gender Identity: female Pronouns: Race: White Ethnicity: Choose not to answer Language: Albanian Patient was assessed: Virtual: SHAPE Crisis Assessment Start Time: 1938 Patient location: [facility] EM[facility]GENCY DEPT ED08 Referral Data and Chief Complaint Maxime Stack presents to the ED with family/friends. Patient is presenting to the ED for the following concerns: Physical aggression. Factors that make the mental health crisis life threateningor complex are: Pt presents to the ED due to increasing agression in the home for the past two months. Chart review indicates patient has a history of DD/Intellectual Disability (Chromosomal Abnormality) and mother is legal guardian. Both mother and stepfather were in the room with patient. Most ofthe information was obtained from pt's parent's as it is challenging to understand patient's speech. When pt was asked why she was in the hospital she said because her feet are hurting. Pt's mother states she is physically aggressive (punching) with both her and her . She denies SI, stating patient doesn't understand the concept of suicide.. Informed Consent and Assessment Methods Explained the crisis assessment process, including applicable information disclosures and limits toconfidentiality, assessed understanding of the process, and obtained consent to proceed with the assessment. Assessment methods included conducting a formal interview with patient, review of medical records, collaboration with medical staff, and obtaining relevant collateral information from familyand community providers when available. : done Patient response to interventions: acceptance expressed Coping skills were attempted to reduce the crisis: Parents state they're at a loss with how to manage the behavior. History of the Crisis Pt's mother states 11/20/23 pt got the Murena IUD put in due to very heavy periods. She states since then she's noticed mood changes and aggression. She also states patient isn't sleeping, 2-3 hours atmost, as well as experiencing auditory and visual hallucinations. She states she's been trying to have the IUD removed and advocate for partial hysterectomy but was denied because of her weight and being on a CPAP. She reports last Saturday she met with a provider and may be starting to get somewherewith getting the IUD removed. Pt is currently involved with therapeutic services through [facility] in [place]. Pt and family used to have care in the home and they quit two weeks ago. Pt's mother states they have a social media director but were told that they would need to research their own services and is in the process of requesting a new social media director. Patient was seen by 06/26/24 and pt wasrecommended for inpatient psychiatric hospitalization due to experiencing hallucinations. Patient did not end up getting admitted and was discharged home. Pt's mother reports they just recently started with a new psychiatrist on 01/16/24 but prior to that hadn't had contact with the previous psychiatrist for months. Pt's mother reports the new psychiatrist wanted blood work done to get levels however they attempted multiple times to get blood from patient and were unsuccessful. Chart review indicates patient and mother presented to [facility] to get help for psychiatric services and states they madea slight adjustment to medications. Parents report they haevn't found been able find effective strategies to descalate pt. Of note, pt needs assistance with ADL's. specifically bowel movements and showering. Brief Psychosocial History Family: Single, Children no Support System: Parent(s) Employment Status: disabled Source of Income: disability Financial Environmental Concerns: none Current Hobbies: arts/crafts, television/movies/videos, games Barriers in Personal Life: behavioral concerns, mental health concerns Significant Clinical History Current Anxiety Symptoms: obsessions/compulsions, anxious Current Depression/Trauma: irritable, impaired decision making, difficulty concentrating Current Somatic Symptoms: anxious Current Psychosis/Thought Disturbance: visual hallucinations, auditory hallucinations (auditory: hearing her mom/dad talking when they weren't, visual: seeing people) Current Eating Symptoms: binging Chemical Use History: Alcohol: None Benzodiazepines: None Opiates: None Cocaine: None Marijuana: None Other Use: None Withdrawal Symptoms: (No substance use) Addictions: (none reported) Past diagnosis: Anxiety Disorder, Other (developmental delay/inellectual disability, Chromosomal abnormality) Family history: No known history of mental health or chemical health concerns Past treatment: Psychiatric Medication Management, Primary Care, Day Treatment, Supportive Living Environment (intermediate, alf house, etc) Details of most recent treatment: Patient saw new psychiatrist on 01/16/24. Patient doesn't not haveindividual therapy but goes to some sort of therapeutic ro support services through [employer] [employer]. 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 After she lived in 3 different group homes until recently. He mother said at the last intermediate she was not getting appropriate care and there were conflicts with other residents, she the patient moved home with her parents on 01/16/23. Patient's mother/guardian reports she is patient's caregiver. Collateral Information Is there collateral information: Yes Collateral information name, relationship, phone number: Twila Justin, mother/legal guardian, What happened today: Pt's mother reports patient has been experiencing increasing aggression for the past two months as well as sleeplessness, which she thinks is caused by Zoey IUD. What is different about patient's functioning: Increased aggression. Has patient made comments about wanting to kill themselves/others: no If d/c is recommended, can they take part in safety/aftercare planning: yes Additional collateral information: Risk Assessment [place] Suicide Severity Rating Scale Full Clinical Version: Suicidal Ideation Q1 Wish to be (Lifetime): No Q2 Non-Specific Active Suicidal Thoughts (Lifetime): No Q6 Suicide Behavior (Lifetime): no Suicidal Behavior (Lifetime) Actual Attempt (Lifetime): No Has subject engaged in non-suicidal self-injurious behavior? (Lifetime): Yes (pt will hit her head) Interrupted Attempts (Lifetime): No Aborted or Self-Interrupted Attempt (Lifetime): No Preparatory Acts or Behavior (Lifetime): No [place] Suicide Severity Rating Scale Recent: Suicidal Ideation (Recent) Q1 Wished to be (Past Month): no Q2 Suicidal Thoughts (Past Month): no Level of Risk per Screen: no risks indicated Suicidal Behavior (Recent) Actual Attempt (Past 3 Months): No Has subject engaged in non-suicidal self-injurious behavior? (Past 3 Months): Yes (pt will hit her head, and pick at scabs (more of an obsession)) Interrupted Attempts (Past 3 Months): No Aborted or Self-Interrupted Attempt (Past 3 Months): No Preparatory Acts or Behavior (Past 3 Months): No Environmental or Psychosocial Events: impulsivity/recklessness Protective Factors: Protective Factors: strong hassan to family unit, community support, or employment, able to access care without barriers, lives in a responsibly safe and stable environment, supportive ongoing medical and mental health care relationships Does the patient have thoughts of harming others? Feels Like Hurting Others: no Previous Attempt to Hurt Others: no Current presentation: (pt presents as calm) Is the patient engaging in sexually inappropriate behavior?: no Is the patient engaging in sexually inappropriate behavior? no Mental Status Exam Affect: Appropriate Appearance: Appropriate Attention Span/Concentration: Attentive Eye Contact: Engaged Fund of Knowledge: Delayed Language /Speech Content: Non-Fluent, Other (please comment) (speech difficulties) Language /Speech Volume: Normal Language /Speech Rate/Productions: Slow, Minimally Responsive (words are not clear) Recent Memory: Variable Remote Memory: Variable Mood: Normal Orientation to Person: Yes Orientation to Place: Yes Orientation to Time of Day: Yes Orientation to Date: Yes Situation (Do they understand why they are here?): Yes Psychomotor Behavior: Normal Thought Content: Clear Thought Form: Intact Mini-Cog Assessment Number of Words Recalled: Clock-Drawing Test: Three Item Recall: Mini-Cog Total Score: Medication Psychotropic medications: Medication Orders - Psychiatric (From admission, onward) Start Dose/Rate Route Frequency Ordered Stop 02/03/24 0800 ARIPiprazole (ABILIFY) tablet 25 mg 25 mg Oral EVERY MORNING 03/17230802/03/24 0800 DULoxetine (CYMBALTA) DR capsule 60 mg 60 mg Oral DAILY 02/02/24230802/02/242307 QUEtiapine (SEROquel) tablet 50 mg 50 mg Oral 2 TIMES DAILY PRN 02/02/24230802/02/242307 hydrOXYzine HCl (ATARAX) tablet 25 mg 25 mg Oral 3 TIMES DAILY PRN 02/02/24230802/02/242019 OLANZapine zydis (zyPREXA) ODT tab 10 mg 10 mg Oral 2 TIMES DAILY PRN 02/02/24202002/02/241999 traZODone (DESYREL) tablet 100 mg 100 mg Oral DAILY AT 8PM 02/02/24 1743 Current Care Team Patient Care Team: Clinic, [facility] as PCP - General Brock Norris MD as PCP - ENT Andreina Gomes MD as PCP - Urology Lele Buckley OD as PCP - Ophthalmology Amy Magallanes as Psychiatrist Diagnosis Patient Active Problem List Diagnosis Code Other chronic otitis externa H60.8X9 Impacted cerumen H61.20 Otitis media H66.90 Lack of expected normal physiological development R62.50 Essential hypertension, benign I10 Hypothyroidism E03.9 Profound intellectual disability F73 SELMA (generalized anxiety disorder) F41.1 Psychosis, unspecified psychosis type (H) F29 Primary Problem This Admission Active Hospital Problems *SELMA (generalized anxiety disorder), F41.1 Profound Intellectual disability F73 Clinical Summary and Substantiation of Recommendations Patient presents to the ED due to increasing physical aggression. Patient has a history of anxiety,developmental delay, intellectual disability and chromosomal abnormalities. Pt's mother is her legal guardian and resident care aid. Pt needs help performing ADL's, specifically showering and toileting. Pt is not able to communicate very well as her words are difficult to make out and her intellectual disability. Pt's mother states the aggression has been increasing the past two months as well as sleeplisness. Pt's mother is making a connection with the timing of the Zoey IUD being put in with the increase in symptoms. She also reports patient experiencing auditory hallucinations (hearing her paren ts when they're not talking) and visual hallucinations (seeing people). Pt states she isn't having thoughts of hurting anyone and pt's mother states she doesn't understand the concept of suicide. Pt has no previous history of psychiatric hospitalization. She has a history of being in a intermediate and attending day treatment, as well as in home care. Pt's mother states the person that was providing in home care, quit two weeks ago and the agency hasn't found a replacement. Pt recently started with a new psychiatrist on 01/16/24. Pt's mother has the concern about the IUD having an impact on her mood and also feels her medications may need evaluating. Pt's mother also reports they have been working with a social media director with the county however was told that she would need to research services on her own. Pt's mother and stepfather express their exasperation as patient's care givers and feeling like they're not getting the help to address patient's symptoms. Due to patient's need for assitance with ADLs and challenges with communication, it may be challenging to place in an inpatient psychiatric setting. Additionally, it appears patient may need more assistance/support in alf care. After consultation with ED provider, it was agreed that patient will be placed on observation withconsults for Social Work (to provide assistance in services) and Psychiatry (to assist with medicati on). Patient coping skills attempted to reduce the crisis: Parents state they're at a loss with how to manage the behavior. Disposition Recommended disposition: Observation, Medication Management, Other. please comment (case management) Reviewed case and recommendations with attending provider. Attending Name: Dr. Arroyo Attending concurs with disposition: yes Patient and/or validated legal guardian concurs with disposition: yes Final disposition: observation Legal status on admission: Guardian/ad litum Assessment Details Total duration spent with the patient: 35 min CPT code(s) utilized: 48521 - Psychotherapy for Crisis - 60 (30-74*) min TY Wilkins LADC, Psychotherapist DEC - Triage & Transition Services Callback: [phone] documented in this encounter ED Notes * Mervin Duran RN - 02/04/2024 12:56 PM CDT Pt's mom here as ride for discharge. Mervin Duran RN * Britni Hardin LGSW - 02/04/2024 10:22 AM CDT Care Management Follow Up Length of Stay (days): 0 Expected Discharge Date: Additional Information: DAKSHA received calls about patient, 1 vm. DAKSHA spoke with MD who had questions about GH placement. DAKSHA does not follow patients in the ED with behavioral concerns. MD inquiring if SW does GH placement. DAKSHA does not assist with intermediate placement for patients in the ED with behavioral concerns. DAKSHA encouraged MD to consult with extended care. DAKSHA is no longer following. ELIO Rdz LGSW Emergency Room Business Objects Architect Please contact the SW on the floor in which the patient is staying for any questions or concerns * Mervin Duran RN - 02/04/2024 10:11 AM CDT Pt to shower on 3rd floor, accompanied by health and wellness sales consultant and security. 3rd floor notified of plan. Mervin Duran RN * Viki Phelps DO - 02/04/2024 9:02 AM CDT ED signout note This is a 33-year-old female with developmental delay, behavioral disturbances here due to behavioral disturbances at home. Has lived in group homes in the past though has been with family for the last 1 year. Patient has been receiving as needed Zyprexa for agitation while in the ED. She has been here for 42 hours and has been calm and cooperative at least for the past 12. Seen by psych. 9:03 AM This morning patient was saying her right ear hurt. There is a small amount of earwax in the EAC but ears and TMs otherwise look healthy. She is telling me about the game she likes to play onher tablet and asking where her mom is. 12:36 PM ROCÍO spoke to patient's mother. Plan is for discharge today around 1245. Patient has an appointment with her psychiatrist tomorrow which will be prudent for any ongoing med adjustments. Psychiatric nurse practitioner already sent as needed Zyprexa to discharge pharmacy and mother understands indications for as needed dosing. 1:07 PM mother arrived to pick patient up. Discharged home in improved condition. Viki Phelps DO 02/04/24 1308 * Erika Dodson RN - 02/04/2024 7:20 AM CDT Patient took PO pills with no incidence- allowed vitals to be taken this morning. Agreeable to shower this morning and security said after 0900 will have staff. Looking to get patient a recliner in room- patient has difficulty getting in/out of bed. * Miroslava Mirza RN - 02/04/2024 6:52 AM CDT STATISTICAL SECRETARY Mental Health Handoff Note Voluntary Does patient require 1:1? No Hold and rights been given and documented for patient: Yes Is the patient in scrubs? Yes Has the patient been searched? Yes Is the 15 minute observation tool up to date? Yes Was patient issued a welcome folder? Yes Room check completed this shift: Yes PSS3 and [place] Assessment/Reassessment this shift: C-SSRS ([place]) Date and Time Q1 Wished to be (Past Month) Q2 Suicidal Thoughts (Past Month) Q3 Suicidal Thought Method Q4 Suicidal Intent without Specific Plan Q5 Suicide Intent with Specific Plan Q6 Suicide Behavior (Lifetime) Within the Past 3 Months? Level of Risk per Screen Level of Risk per Screen User 02/02/24 2246 -- -- -- -- -- 0-->no -- -- -- JK 02/02/24 1946 0-->no 0-->no -- -- -- -- -- -- no risks indicated MARY 02/02/24 1508 0-->no 0-->no -- -- -- 0-->no -- -- no risks indicated NRA Behavioral status of patient: Yellow. Pt hallucinating, frequently crying, agitated, or responding to internal stimuli. Easily redirectable. Code 21 called this shift? No Use of restraints/seclusion this shift? No Most recent vital signs: Temp: 98 ??F (36.7 ??C) Temp src: Oral BP: 133/85 Pulse: 67 Resp: 16 SpO2: 96 % O2 Device: BiPAP/CPAP (home unit - room air) Medications: Scheduled medication compliance? Yes PRN Meds administered this shift? Yes Medications traZODone (DESYREL) tablet 100 mg (100 mg Oral $Given 02/03/242011) propranolol (INDERAL) tablet 60 mg (60 mg Oral $Given 02/03/242011) OLANZapine zydis (zyPREXA) ODT tab 10 mg (10 mg Oral $Given 02/04/24 030) topiramate (TOPAMAX) tablet 50 mg (50 mg Oral $Given 02/03/24 0738) Followed by topiramate (TOPAMAX) tablet 100 mg (has no administration in time range) topiramate (TOPAMAX) tablet 100 mg (100 mg Oral $Given 02/03/242011) ARIPiprazole (ABILIFY) tablet 25 mg (25 mg Oral $Given 02/03/24 0735) DULoxetine (CYMBALTA) DR capsule 60 mg (60 mg Oral $Given 02/03/24 0735) hydrOXYzine HCl (ATARAX) tablet 25 mg (25 mg Oral $Given 02/04/24 030) lamoTRIgine (LaMICtal) tablet 200 mg (200 mg Oral $Given 02/03/24 0735) levothyroxine (SYNTHROID/LEVOTHROID) tablet 137 mcg (137 mcg Oral $Given 02/03/24 0735) QUEtiapine (SEROquel) tablet 50 mg (50 mg Oral $Given 02/04/24 030) OLANZapine (zyPREXA) injection 10 mg (10 mg Intramuscular $Given 02/03/24 0100) ADLs Meal Provided this shift? Yes Hygiene items provided? Yes ADLs completed? Yes Date of last shower: DRAFTER [employer] Any significant events this shift? No Any information that would be helpful in caring for this patient? Pt frequently responds to internal stimuli and both visual and auditory hallucinations. Pt becomes agitated or tearful as a result. Pt also frequently attempts to reversing mill roller the gomez to talk to the nurse or security. Easily redirectable with some persistence by staff. Family present/updated? No Location of patient's belongings: [facility] office Critical Care Minutes: Does the patient need critical care minutes documented? No * Miroslava Mirza RN - 02/04/2024 5:30 AM CDT Pt responding to internal stimuli and frequently scared by things she is seeing in her room that are not really there such as ghosts, snakes, and spiders. * Britni Vizcarra RN - 02/03/2024 10:52 PM CDT STATISTICAL SECRETARY Mental Health Handoff Note Voluntary Does patient require 1:1? No Hold and rights been given and documented for patient: Yes Is the patient in scrubs? Yes Has the patient been searched? Yes Is the 15 minute observation tool up to date? Yes Was patient issued a welcome folder? No Room check completed this shift: Yes PSS3 and [place] Assessment/Reassessment this shift: C-SSRS ([place]) Date and Time Q1 Wished to be (Past Month) Q2 Suicidal Thoughts (Past Month) Q3 Suicidal Thought Method Q4 Suicidal Intent without Specific Plan Q5 Suicide Intent with Specific Plan Q6 Suicide Behavior (Lifetime) Within the Past 3 Months? Level of Risk per Screen Level of Risk per Screen User 02/02/24 2246 -- -- -- -- -- 0-->no -- -- -- JK 02/02/24 1946 0-->no 0-->no -- -- -- -- -- -- no risks indicated K 02/02/24 1508 0-->no 0-->no -- -- -- 0-->no -- -- no risks indicated NRA Behavioral status of patient: Yellow. - Continuing to call out. Pt will say she is hearing her mom talking or is hearing her parents fighting. Redirectable with verbal reassurance. Code 21 called this shift? No Use of restraints/seclusion this shift? No Most recent vital signs: Temp: 98 ??F (36.7 ??C) Temp src: Oral BP: 133/85 Pulse: 67 Resp: 16 SpO2: 96 % O2 Device: BiPAP/CPAP (home unit - room air) Medications: Scheduled medication compliance? Yes PRN Meds administered this shift? No Medications traZODone (DESYREL) tablet 100 mg (100 mg Oral $Given 02/03/242011) propranolol (INDERAL) tablet 60 mg (60 mg Oral $Given 02/03/242011) OLANZapine zydis (zyPREXA) ODT tab 10 mg (10 mg Oral $Given 02/03/24 1739) topiramate (TOPAMAX) tablet 50 mg (50 mg Oral $Given 02/03/24 0738) Followed by topiramate (TOPAMAX) tablet 100 mg (has no administration in time range) topiramate (TOPAMAX) tablet 100 mg (100 mg Oral $Given 02/03/242011) ARIPiprazole (ABILIFY) tablet 25 mg (25 mg Oral $Given 02/03/24 0735) DULoxetine (CYMBALTA) DR capsule 60 mg (60 mg Oral $Given 02/03/24 0735) hydrOXYzine HCl (ATARAX) tablet 25 mg (25 mg Oral $Given 02/03/24 1448) lamoTRIgine (LaMICtal) tablet 200 mg (200 mg Oral $Given 02/03/24 0735) levothyroxine (SYNTHROID/LEVOTHROID) tablet 137 mcg (137 mcg Oral $Given 02/03/24 0735) QUEtiapine (SEROquel) tablet 50 mg (50 mg Oral $Given 02/03/24 1137) OLANZapine (zyPREXA) injection 10 mg (10 mg Intramuscular $Given 02/03/24 0100) ADLs Meal Provided this shift? Yes Hygiene items provided? Yes ADLs completed? Yes Date of last shower: [employer] Any significant events this shift? Yes. Details: Pt was set to discharge this afternoon ~1730, but behavior escalated to the point where parents refused to bring her home. Pt yelled I want to stay here!. Pt moved to a room with seclusion capability as she had been continually leaving her room. Ptcooperative and redirectable the rest of this shift. Any information that would be helpful in caring for this patient? Pt frequently calls out to voices she is hearing. Hears her mom talking or her parents fighting. Redirectable with verbal cues. Remind pt she is safe, that her parents are at home and safe. Family present/updated? Yes - mom updated this shift Location of patient's belongings: DEC office Critical Care Minutes: Does the patient need critical care minutes documented? No * Britni Vizcarra RN - 02/03/2024 9:04 PM CDT Pt's mom called to say good night. Pt phone brought into room and mom transferred in. Conversation was short and ended without incident. Phone removed from pt's room. * Britni Vizcarra RN - 02/03/2024 7:39 PM CDT Pt up to BR SBA. RN reminded pt to wash her hands. Back to room without incident. * Britni Vizcarra RN - 02/03/2024 7:19 PM CDT Pt's clothing brought over from previous ED room, placed in bag with identifying sticker and placedin DEC office. * Kristie Ibarra RN - 02/03/2024 6:41 PM CDT Bed: ED06 Expected date: Expected time: Means of arrival: Comments: ED8 * Sharon Landin RN - 02/03/2024 6:02 PM CDT Pt was told that she was going to get discharged home and pt started yelling and screaming, I dont want to go home I want to stay here I'm not leaving. Mother tried to take pt hand and pt stated dont hit me. Mother stated not taking pt home when pt is yelling and screaming not to go home. Per MD an additional dose of Zyprexa was given prior to discharge. After Zyprexa dose, pt continued to yell & scream stating not leaving the hospital. Mother stated I am not taking her home like this and left pt's room. * Rama Melgar RN - 02/03/2024 2:49 PM CDT Pt very restless for last hour or so and hearing voices of her mom and dad fighting. Pt very concerned about where her stuff is and when her mom will be here. Reassurance provided activities offered * Britni Hardin LGSW - 02/03/2024 2:06 PM CDT Care Management Follow Up Length of Stay (days): 0 Expected Discharge Date: Additional Information: SW consulted for Trouble with behavior at home, family feels unsafe. Patient was assessed by ROCÍO for behavioral concerns. SW does not follow patients in the ED with behavioral concerns needing GH placement or mental health respite care. ELIO Rdz LGSW Emergency Room Business Objects Architect Please contact the SW on the floor in which the patient is staying for any questions or concerns * Rama Melgar RN - 02/03/2024 12:55 PM CDT Pt continues to see her mother pt redirected * Rama Melgar RN - 02/03/2024 10:30 AM CDT Pt comes out of room but redirectable * Rama Melgar RN - 02/03/2024 8:00 AM CDT Pt ambulated to bathroom with walker and CGA pt needed verbal cues for handwashing. Pt frequently stating that she hears her mom and misses her also asking for her stuff. Pt redirectable with verbal cues * Cecelia Moreno RN - 02/03/2024 6:17 AM CDT STATISTICAL SECRETARY Mental Health Handoff Note Voluntary Does patient require 1:1? No Hold and rights been given and documented for patient: Yes Is the patient in scrubs? Yes Has the patient been searched? Yes Is the 15 minute observation tool up to date? Yes Was patient issued a welcome folder? No Room check completed this shift: No PSS3 and [place] Assessment/Reassessment this shift: C-SSRS ([place]) Date and Time Q1 Wished to be (Past Month) Q2 Suicidal Thoughts (Past Month) Q3 Suicidal Thought Method Q4 Suicidal Intent without Specific Plan Q5 Suicide Intent with Specific Plan Q6 Suicide Behavior (Lifetime) Within the Past 3 Months? Level of Risk per Screen Level of Risk per Screen User 02/02/24 2246 -- -- -- -- -- 0-->no -- -- -- JK 02/02/24 1946 0-->no 0-->no -- -- -- -- -- -- no risks indicated K 02/02/24 1508 0-->no 0-->no -- -- -- 0-->no -- -- no risks indicated NRA Behavioral status of patient: Yellow. Code 21 called this shift? No Use of restraints/seclusion this shift? No Most recent vital signs: Temp: 97.2 ??F (36.2 ??C) Temp src: Temporal BP: (!) 154/82 Pulse: 65 Resp: 16 SpO2: 95 % O2 Device: None (Room air) Medications: Scheduled medication compliance? Yes PRN Meds administered this shift? Yes Medications traZODone (DESYREL) tablet 100 mg (100 mg Oral $Given 02/02/242042) propranolol (INDERAL) tablet 60 mg (60 mg Oral $Given 02/02/242041) OLANZapine zydis (zyPREXA) ODT tab 10 mg (10 mg Oral $Given 02/03/24439) topiramate (TOPAMAX) tablet 50 mg (has no administration in time range) Followed by topiramate (TOPAMAX) tablet 100 mg (has no administration in time range) topiramate (TOPAMAX) tablet 100 mg (has no administration in time range) ARIPiprazole (ABILIFY) tablet 25 mg (has no administration in time range) DULoxetine (CYMBALTA) DR capsule 60 mg (has no administration in time range) hydrOXYzine HCl (ATARAX) tablet 25 mg (has no administration in time range) lamoTRIgine (LaMICtal) tablet 200 mg (has no administration in time range) levothyroxine (SYNTHROID/LEVOTHROID) tablet 137 mcg (has no administration in time range) QUEtiapine (SEROquel) tablet 50 mg (50 mg Oral $Given by Other 02/03/24 0208) OLANZapine (zyPREXA) injection 10 mg (10 mg Intramuscular $Given 02/03/24 0100) ADLs Meal Provided this shift? No Hygiene items provided? No ADLs completed? No Date of last shower: Any significant events this shift? No Any information that would be helpful in caring for this patient? Family present/updated? No Location of patient's belongings: Home with mom Critical Care Minutes: Does the patient need critical care minutes documented? No * Cecelia Moreno RN - 02/03/2024 3:00 AM CDT Pt cont to call out stating that she sees something in the hallway, pt is difficult to understand not sure what she thinks that she is seeing * Jodi Rivera RN - 02/02/2024 7:14 PM CDT Pt states that she is not having any thoughts of harming anyone, others or self. However, she states that she wants to stay here so that she doesn't go back to smacking my dad at home * Britany Degroot RN - 02/02/2024 3:06 PM CDT Pt presents with mother and other family/friends for aggressive behavior at home. Mother states medications are not correct. Pt is not sleeping and is not performing ADLs. Caregiver fatigue noted. * Han Arroyo MD - 02/02/2024 2:58 PM CDT History Chief Complaint: Aggressive Behavior HPI Maxime Stack is a 33 year old female who presents with parents regarding increasing aggressive behavior over the past 2 months. Mother has noticed change in behavior after mirena iud placement 12/11. Pt has had hours long episode of physical aggression and isnt sleeping well. Pt has a psychiatrist and has not been given specific mental health dx for her sx. Meds include duloxetine, propranolol, aripiprazole, topiramate, lamotrigine, hydroxyzine, quetiapine. Pt has ever had mental health admissions I the past. Pt is supposed to use CPAP at night. DJ herself mentions thoughts of hurting step father but not herself. NO recent fever, cough, vomiting, diarrhea. Pt has been complaining of R foot pain recently and reportedly had negative XRs and MRIs without clear answer. Per mother, she restricts tablet time to 3 hours per day until 730p. Pt seems to want this tablet all the time and this is a point of contention. Mother is hoping for medication adjustment to help with behaviors. 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 Short stature Unspecified otitis media Ventricular septal defect Past Surgical History: Past Surgical History: Procedure Laterality Date HC OPEN TX TRIMALLEOLAR ANKLE FX WO FIX POSTERIOR LIP 09/26/07 right HC REMOVAL ADENOIDS,PRIMARY,12+ Y/O 07/29/02 ZZC REPR VSD age 6-7 months Repair VSD with patching ZZHC CREATE EARDRUM OPENING,GEN ANESTH 07/29/02 bilateral Physical Exam Patient Vitals for the past 24 hrs: BP Temp Temp src Pulse Resp SpO2 02/02/24 2045 -- -- -- 65 -- 95 % 02/02/24 1800 -- 97.2 ??F (36.2 ??C) Temporal -- -- -- 02/02/24 1507 (!) 154/82 -- -- (!) 41 16 94 % Physical Exam VS: Reviewed per above HENT: Mucous membranes moist EYES: sclera anicteric CV: Rate as noted, regular rhythm. RESP: Effort normal. Breath sounds are normal bilaterally. GI: no tenderness/rebound/guarding, not distended. NEURO: Alert, moving all extremities PSYCH: +thoughts of harming step father. Denies SI MSK: No deformity of the extremities SKIN: Warm and dry Emergency Department Course Emergency Department Course & Assessments: Interventions: Medications traZODone (DESYREL) tablet 100 mg (100 mg Oral $Given 02/02/242042) propranolol (INDERAL) tablet 60 mg (60 mg Oral $Given 02/02/242041) OLANZapine zydis (zyPREXA) ODT tab 10 mg (has no administration in time range) topiramate (TOPAMAX) tablet 50 mg (has no administration in time range) Followed by topiramate (TOPAMAX) tablet 100 mg (has no administration in time range) topiramate (TOPAMAX) tablet 100 mg (has no administration in time range) ARIPiprazole (ABILIFY) tablet 25 mg (has no administration in time range) DULoxetine (CYMBALTA) DR capsule 60 mg (has no administration in time range) hydrOXYzine HCl (ATARAX) tablet 25 mg (has no administration in time range) lamoTRIgine (LaMICtal) tablet 200 mg (has no administration in time range) levothyroxine (SYNTHROID/LEVOTHROID) tablet 137 mcg (has no administration in time range) QUEtiapine (SEROquel) tablet 50 mg (has no administration in time range) Consultations/Discussion of Management or Tests: ED Course as of 02/02/242331 Sun Feb 02, 2024 2019 I spoke with ROCÍO. Disposition: Care of the patient was transferred to my colleague pending further psych evaluation. Impression & Plan Medical Decision Making: Patient presents to the ER for evaluation of increasing aggressive behavior at home. Parents are concerned for their own safety and do not know how to care for the patient. They believe she requires a medication adjustment. Vital signs reassuring. No acute medical concerns. DEC evaluated patient and given significant ADLs, they felt that it be best to try and achieve psychiatric consultation in the ER as it would be quite difficult to find placement for this patient in an inpatient psychiatric unit. Home meds reordered in discussion with ED pharmacist. At signout to my colleague, further social work and psychiatric consultation was pending. Diagnosis: ICD-10-CM 1. Aggressive behavior R46.89 2. Cognitive impairment R41.89 Discharge Medications: New Prescriptions No medications on file Han Arroyo MD 02/02/242332 * Jacquie Burden MD - 02/02/2024 2:58 PM CDT This 33 year old female patient with unclear mental health diagnoses was endorsed to me by Dr. Kenyon pending assessment for disposition. Medically cleared. Here with consent from her parents who are her legal guardians. I have reviewed patient's vitals and notes which are remarkable for patient agitation. 1501 The patient yells out stating she wants her mother and continually comes out of her room. Zyprexa to be given. 1650 I spoke with psychiatric nurse practitioner ROCÍO Peter, regarding plan for discharge. They recommend discharge with increased dose of Topamax and PRN Zyprexa with psychiatric providerappointment in 2 days. The patient does not want to be discharged and her parents are hesitant to take her home though they have pulled DJ out of a intermediate and fired a FIRE DEPARTMENT BATTALION CHIEF. 1742 I updated the patient and her parents on plan for discharge. The patient is crying and yellingshe does not want to go home. Neither parents have questions. 1809 The parents are refusing to take the patient home. We will board the patient awaiting non-mental health placement. 2333 The patient was endorsed to Dr. Michael pending social placement tomorrow. She does not require mental health admission but parents are unwilling to take her home. Jacquie Burden MD 02/03/24 2334 documented in this encounter Miscellaneous Notes * Pharmacy-Admission Medication History - Jyothi Urbina [facility] - 02/02/2024 9:04 PM CDT Pharmacist Admission Medication History Admission medication history is complete. The information provided in this note is only as accurateas the sources available at the time of the update. Information Source(s): Family member and CareEverywhere/SureScripts via in-person Pertinent Information: Per SureScripts, patient was supposed to start titration of topiramate in October: 50 mg in the morning, 100 mg in the evening x1 week, then 100 mg twice daily. Mother states she has been giving patient 50 mg twice daily. After discussion with Dr. Arroyo, decision was made to start this titration this evening in the setting of increased agitation. Changes made to [employer] medication list: Added: quetiapine, hydroxyzine, duloxetine Deleted: olanzapine (scheduled and prn), pediatric multivitamin Changed: aripiprazole 20-->25 mg daily Allergies reviewed with patient and updates made in EHR: yes Medication History Completed By: Jyothi Urbina, PharmOma, [facility] Emergency Medicine Clinical Pharmacist [phone] 02/02/2024 9:04 PM [employer] Med List Medication Sig Last Dose ARIPiprazole (ABILIFY) 20 MG tablet Take 25 mg by mouth every morning Take in combination with a 5 mg tablet for 25 mg 02/02/2024 at am DULoxetine (CYMBALTA) 60 MG capsule Take 60 mg by mouth daily 02/02/2024 at am hydrOXYzine HCl (ATARAX) 25 MG tablet Take 25 mg by mouth 3 times daily as needed for anxiety 02/02/2024 at 100 mg @ 9:45am lamoTRIgine (LAMICTAL) 200 MG tablet Take 200 mg by mouth every morning 02/02/2024 at am levothyroxine (SYNTHROID/LEVOTHROID) 137 MCG tablet Take 137 mcg by mouth daily before breakfast 02/02/2024 at am propranolol (INDERAL) 60 MG tablet Take 1 tablet by mouth 2 times daily 02/02/2024 at x1 QUEtiapine (SEROQUEL) 50 MG tablet Take 50 mg by mouth 2 times daily as needed (Agitation) 02/02/2024 at 200 mg x1 this am topiramate (TOPAMAX) 50 MG tablet Take 50 mg by mouth 2 times daily 02/02/2024 at x1 traZODone (DESYREL) 100 MG tablet Take 100 mg by mouth at bedtime 02/01/2024 at hs documented in this encounter Plan of Treatment Not on file documented as of this encounter Visit Diagnoses Diagnosis Impulse control disorder in adult- Primary Aggressive behavior Explosive personality disorder Cognitive impairment Unspecified persistent mental disorders due to conditions classified elsewhere Hallucinations SELMA (generalized anxiety disorder) Generalized anxiety disorder Intellectual delay Unspecified delay in development Moderate intellectual disability Moderate intellectual disabilities documented in this encounter Administered Medications Inactive Administered Medications - up to 3 most recent administrations Medication Order MAR Action Action Date Dose Rate Site ARIPiprazole (ABILIFY) tablet 25 mg 25 mg, Oral, EVERY MORNING, First dose on Sat02/03/24 at 0800 $Given 02/04/2024 7:21 AM CDT 25 mg $Given 02/03/2024 7:35 AM CDT 25 mg DULoxetine (CYMBALTA) DR capsule 60 mg 60 mg, Oral, DAILY, First dose on Sat02/03/24 at 0800 $Given 02/04/2024 7:21 AM CDT 60 mg $Given 02/03/2024 7:35 AM CDT 60 mg hydrOXYzine HCl (ATARAX) tablet 25 mg 25 mg, Oral, 3 TIMES DAILY PRN, anxiety, Starting on Sat02/02/24 at 2308 $Given 02/04/2024 3:01 AM CDT 25 mg $Given 02/03/2024 2:48 PM CDT 25 mg lamoTRIgine (LaMICtal) tablet 200 mg 200 mg, Oral, EVERY MORNING, First dose on Sat02/03/24 at 0800 $Given 02/04/2024 7:21 AM CDT 200 mg $Given 02/03/2024 7:35 AM CDT 200 mg levothyroxine (SYNTHROID/LEVOTHROID) tablet 137 mcg 137 mcg, Oral, Daily before breakfast, First dose on Sat02/03/24 at 0730, Separate oral administration of iron- or calcium-containing products and levothyroxine by at least 4 hours. $Given 02/04/2024 7:21 AM CDT 137 mcg $Given 02/03/2024 7:35 AM CDT 137 mcg OLANZapine (zyPREXA) injection 10 mg 10 mg, Intramuscular, ONCE PRN, agitation, Starting on Sat02/03/24 at 0052, For 1 dose, Dissolve the contents of the 10 mg vial using 2.1 mL of Sterile Water for Injection to provide a solution containing 5 mg/mL of olanzapine. Withdraw the ordered dose from vial. Use immediately (within 1 hour) after reconstitution. Discard any unused portion. $Given 02/03/2024 1:00 AM C DT 10 mg OLANZapine zydis (zyPREXA) ODT tab 10 mg 10 mg, Oral, 2 TIMES DAILY PRN, agitation, associated with psychosis or aimee., Starting on 02/02/24 at 2020, Doses should be at least 2 hours apart. With dry hands, peel back foil backing and gently remove tablet. Do not push oral disintegrating tablet through foil backing. Administer immediately on tongue and oral disintegrating tablet dissolves in seconds, then swallow with saliva. Liquid not required. $Given 02/04/2024 3:01 AM CDT 10 mg $Given 02/03/2024 5:39 PM CDT 10 mg $Given 02/03/2024 2:48 PM CDT 10 mg propranolol (INDERAL) tablet 60 mg 60 mg, Oral, 2 TIMES DAILY, First dose on 02/02/24 at 2000 $Given 02/04/2024 7:20 AM CDT 60 mg $Given 02/03/2024 8:12 PM CDT 60 mg $Given 02/03/2024 7:35 AM CDT 60 mg QUEtiapine (SEROquel) tablet 50 mg 50 mg, Oral, 2 TIMES DAILY PRN, Agitation, Starting on 02/02/24 at 2308 $Given 02/04/2024 3:01 AM CDT 50 mg $Given 02/03/2024 11:37 AM CDT 50 mg $Given by Other 02/03/2024 2:08 AM CDT 50 mg topiramate (TOPAMAX) tablet 100 mg 100 mg, Oral, DAILY AT 8PM, First dose on 02/02/24 at 2000 $Given 02/02/2024 8:56 PM CDT 100 mg topiramate (TOPAMAX) tablet 100 mg 100 mg, Oral, EVERY 12 HOURS SCHEDULED, First dose on Sat02/09/24 at 0800 topiramate (TOPAMAX) tablet 100 mg 100 mg, Oral, EVERY EVENING, First dose on Sat02/03/24 at 2000, For 6 doses $Given 02/03/2024 8:12 PM CDT 100 mg topiramate (TOPAMAX) tablet 50 mg 50 mg, Oral, DAILY, First dose on Sat02/03/24 at 0800, For 6 doses $Given 02/04/2024 7:20 AM CDT 50 mg $Given 02/03/2024 7:38 AM CDT 50 mg traZODone (DESYREL) tablet 100 mg 100 mg, Oral, DAILY AT 8PM, First dose on Sat02/02/24 at 1999 $Given 02/03/2024 8:12 PM CDT 100 mg $Given 02/02/2024 8:43 PM CDT 100 mg documented in this encounter Active and Recently Administered Medications Times are shown in CDT. Scheduled Medication Order 02/02/2024 02/03/2024 02/04/2024 ARIPiprazole (ABILIFY) tablet 25 mg 25 mg, Oral, EVERY MORNING, First dose on Sat02/03/24 at 0800 0735 ($Given - Provider: Rama Melgar RN) 0721 ($Given - Provider: Erika Dodson, ТАТЬЯНА) DULoxetine (CYMBALTA) DR capsule 60 mg 60 mg, Oral, DAILY, First dose on Sat02/03/24 at 0800 0735 ($Given - Provider: Rama Melgar RN) 0721 ($Given - Provider: Erika Dodson, ТАТЬЯНА) lamoTRIgine (LaMICtal) tablet 200 mg 200 mg, Oral, EVERY MORNING, First dose on Sat02/03/24 at 0800 0735 ($Given - Provider: Rama Melgar RN) 0721 ($Given - Provider: Erika Dodson, ТАТЬЯНА) levothyroxine (SYNTHROID/LEVOTHROID) tablet 137 mcg 137 mcg, Oral, Daily before breakfast, First dose on Sat02/03/24 at 0730, Separate oral administration of iron- or calcium-containing products and levothyroxine by at least 4 hours. 0735 ($Given - Provider: Rama Melgar RN) 0721 ($Given - Provider: Erika Dodson, ТАТЬЯНА) propranolol (INDERAL) tablet 60 mg 60 mg, Oral, 2 TIMES DAILY, First dose on Sat02/02/24 at 1999 2041 ($Given - Provider: Britany Degroot RN) 0735 ($Given - Provider: Rama Melgar RN)2011 ($Given - Provider: Britni Vizcarra RN) 0720 ($Given - Provider: Erika Dodson, ТАТЬЯНА) topiramate (TOPAMAX) tablet 100 mg (CANCELED) 100 mg, Oral, DAILY AT 8PM, First dose on Sat02/02/24 at 1999 2055 ($Given - Provider: Britany Degroot RN) topiramate (TOPAMAX) tablet 100 mg(Linked Group 1) 100 mg, Oral, EVERY 12 HOURS SCHEDULED, First dose on 02/09/24 at 0800 topiramate (TOPAMAX) tablet 100 mg 100 mg, Oral, EVERY EVENING, First dose on Sat02/03/24 at 2000, For 6 doses 2011 ($Given - Provider: Britni Vizcarra, ТАТЬЯНА) topiramate (TOPAMAX) tablet 50 mg(Linked Group 1) 50 mg, Oral, DAILY, First dose on Sat02/03/24 at 0800, For 6 doses 0738 ($Given - Provider: Rama Melgar, ТАТЬЯНА) 0720 ($Given - Provider: Erika Dodson RN) traZODone (DESYREL) tablet 100 mg 100 mg, Oral, DAILY AT 8PM, First dose on 02/02/24 at 2000 2042 ($Given - Provider: Britany Degroot RN) 2011 ($Given - Provider: Britni Vizcarra RN) PRN Medication Order 02/02/2024 02/03/2024 02/04/2024 hydrOXYzine HCl (ATARAX) tablet 25 mg 25 mg, Oral, 3 TIMES DAILY PRN, anxiety, Starting on 02/02/24 at 2308 1448 ($Given - Provider: Rama Melgar, ТАТЬЯНА) 0301 ($Given - Provider: Miroslava Mirza RN) OLANZapine (zyPREXA) injection 10 mg (COMPLETED) 10 mg, Intramuscular, ONCE PRN, agitation, Starting on Sat02/03/24 at 0052, For 1 dose, Dissolve the contents of the 10 mg vial using 2.1 mL of Sterile Water for Injection to provide a solution containing 5 mg/mL of olanzapine. Withdraw the ordered dose from vial. Use immediately (within 1 hour) after reconstitution. Discard any unused portion. 0100 ($Given - Provider: Cecelia Moreno RN) OLANZapine zydis (zyPREXA) ODT tab 10 mg 10 mg, Oral, 2 TIMES DAILY PRN, agitation, associated with psychosis or aimee., Starting on 02/02/24 at 2020, Doses should be at least 2 hours apart. With dry hands, peel back foil backing and gently remove tablet. Do not push oral disintegrating tablet through foil backing. Administer immediately on tongue and oral disintegrating tablet dissolves in seconds, then swallow with saliva. Liquid not required. 0440 ($Given - Provider: Cecelia Moreno RN)1448 ($Given - Provider: Rama Melgar, ТАТЬЯНА)1739 ($Given - Provider: Sharon Landin RN - Comment: ok to give per MD) 0301 ($Given - Provider: Miroslava Mirza RN) QUEtiapine (SEROquel) tablet 50 mg 50 mg, Oral, 2 TIMES DAILY PRN, Agitation, Starting on 02/02/24 at 2308 0208 ($Given by Other - Provider: Cecelia Moreno RN - Comment: Given by Laura VAZ)1032 (Canceled Entry - Provider: Rama Melgar RN - Comment: not given too close to other dose)1137 ($Given - Provider: Rama Melgar, ТАТЬЯНА) 0301 ($Given - Provider: Miroslava Mirza RN) Linked Groups Order Group 1: topiramate (TOPAMAX) tablet 50 mgJump to med 50 mg, Oral, DAILY, First dose on 02/03/24 at 0800, For 6 doses Followed by topiramate (TOPAMAX) tablet 100 mgJump to med 100 mg, Oral, EVERY 12 HOURS SCHEDULED, First dose on 02/09/24 at 0800 documented in this encounter Care Teams Trainmaster Relationship Specialty Start Date End Date Brock Norris MD [facility] [address] [place] [id number] PCP - ENT 12/11/00 02/03/24 Andreina Gomes MD [facility] [address] [place] [id number] PCP - Urology 06/12/06 02/03/24 Lele Buckley OD [facility] [address] [place] [address] PCP - Ophthalmology 08/25/09 02/03/[address] [id number] PCP - General 06/26/23 Leida Christianson MD [address], [place] [address] Assigned OBGYN Provider 01/31/24 Amy Magallanes Psychiatrist 01/16/24 documented as of this encounter
--- OUTSIDE RECORDS SUMMARY | 2024-03-05 07:27 | XMS_ITS | Encounter Summary ---
Author Name Unknown Organization [place] Address [address] [place] [address] Care Team Providers Care Gallery Or Museum Guide Name Role Phone Neville Mcintosh MD Primary Care Provider [phone] Brock Norris MD Unavailable [phone] Adnreina Gomes MD Unavailable [phone] Allan Romo MD Unavailable Unavailable Lele Buckley OD Unavailable [phone] Frw, None Primary Care Provider [facility] Provider Leida Christianson MD Unavailable [phone] Reason for Visit * Reason Onset Date Comments Refill Request 03/25/2006 Phos-Flur Oral R inse Encounter Details Date Type Department Care Team (Late st Contact Info) Description 03/25/2006 Refill [facility] in [facility] [address] [place] [address] [place] [phone] Neville Mcintosh MD [address] [id number] Refill Request (Phos-Flur Oral Rinse) Social History Tobacco Use Types Packs/Day Years Used Date Smoking Tobacco: Never Comments:NO SECOND HAND SMOK E Alcohol Use Standard Drinks/Week Comments Not Asked 0 (1 standard drink = 0.6 oz pur e alcohol) Sex and Gender Information Value Date Recorded Sex Assigned at Not on file Gender Identity Not on file Sexual Orientation Not on file documented as of this encounter Miscellaneous Notes * Telephone Encounter - Colette Moise - 03/25/2006 9:44 AM CDT I called the pharmacy and they stated it is 0.02% fluoride dental rise. * Telephone Encounter - Neville Mcintosh MD - 03/25/2006 9:13 AM CDT Have [facility] fax us the Rx so we can see what she has been on * Telephone Encounter - Kayy Church - 03/25/2006 8:18 AM CDT I did not find this in the Med. History, and did not know which to select from the data base. Can you help? documented in this encounter Plan of Treatment Not on file documented as of this encounter Visit Diagnoses Not on filedocumented in this encounter Care Teams Gallery Or Museum Guide Relationship Specialty Start Date End Date Neville Mcintosh MD [facility] [address] [place] [address] PCP - General 12/11/00 11/01/13 Brock Norris MD [facility] [place] [address] [place] [address] PCP - ENT 12/11/00 02/03/24 Andreina Gomes MD [facility] [place] [address] [place] [address] PCP - Urology 06/12/06 02/03/24 Allan Romo MD [facility] [address] [place] [address] PCP - Orthopaedics 12/23/07 06/26/23 Lele Buckley OD [facility] [place] [address] [place] [address] PCP - Ophthalmology 08/25/09 02/03/24 Frw, None PCP - General Family Practice 11/02/13 07/18/17 [facility], [address] [id number] PCP - General 06/26/23 Leida Christianson MD [address] [place] [address] Assigned OBGYN Provider 01/31/24 Dr. Naresh Herrera [address] [id number] Psychiatrist 11/18/14 02/01/24 Amy Magallanes Psychiatrist 01/16/24 documented as of this encounter
[2024-03-05 07:55] VITALS: BMI 54.7
[2024-03-05 08:02] VITALS: BP 142/70; PULSE 67; RESP 18; TEMP 36.9; O2SAT 96
--- NOTE | 2024-03-05 08:38 | W.PM.H&PU ---
History & Physical Update History & Physical Update H&P Reviewed and patient assessed: No changes noted H&P Updates: Maxime Nguyễn is here for an exam under anesthesia, Mirena IUD removal, and a Kyleena IUD insertion. No interval treat just as we last spoke. FESTUS and her mom does not have any additional questions or concerns. Physical exam: General: No acute distress Psych: Alert and oriented at her baseline, full affect HEENT: Normocephalic, atraumatic. Neck: Significant adiposity in her neck Heart: Regular rate and rhythm, no murmur rub or gallop Lungs: Clear to auscultation bilaterally Abdomen: Normoactive bowel sounds, soft, no tenderness, rebound, or guarding Lower extremities: No edema or erythema Pelvic exam: Deferred to OR
[2024-03-05] MEDS: SODIUM CHLORIDE 0.9 % (FLUSH) 10 ML SYRINGE IVF (08:40)
[2024-03-05] MEDS: LACTATED RINGERS 1000 ML 1,000 ML 100 ML IV (08:40)
[2024-03-05 09:11] LABS: HCG Qualitative Serum* Negative (Negative)
--- NOTE | 2024-03-05 09:55 | P.GYNPRC_ITS ---
Procedure Note Time Seen by Provider: 09:55 Date of procedure: 03/05/24 Will [facility] bill your pro fee for this procedure?: Yes Condition: other Disposition: same day Procedure Description: PREOPERATIVE DIAGNOSIS: 1. Intolerant to Mirena IUD 2. Desires Kyleena IUD 3. Unable to tolerate pelvic exam in clinic POSTOPERATIVE DIAGNOSIS: Same PROCEDURE: 1. EUA 2. Mirena IUD removal 3. Kyleena IUD insertion SURGEON: Chanelle Bryant MD ANESTHESIA: MAC FINDINGS: 1. Patient had incontinence of urine when being positioned 2. A 6 week size mobile anteverted uterus, no adnexal masses on EUA 3. Normal external genitalia, small normal appearing cervix with IUD strings protruding from cervical os. ESTIMATED BLOOD LOSS: 0 cc COMPLICATIONS: None SPECIMEN: None INDICATIONS: Maxime is a 33yo G0 here for exam under anesthesia due to intolerance of Mirena IUD and replacement with Kyleena IUD. DESCRIPTION OF PROCEDURE: The patient was taken to the operating room where monitored anesthesia care was administered. Pneumoboots were placed and activated. She was placed in the dorsal lithotomy position in great whites, taking care to avoid lower extremity hyperextension, hyperflexion or compression. A surgical time-out was performed with the entire operative staff per protocol. EUA revealed the above findings. Bladder was drained with a red rubber. A speculum was placed in the patient's vagina. IUD strings visualized at the cervical os. Ring forceps used to grasped IUD strings and Mirena IUD was removed intact with gentle traction without complications. The cervix was then subsequently prepped with iodine. Single-tooth tenaculum was placed on the anterior lip of the cervix. Attention was then turned towards the Kyleena IUD insertion. The IUD is loaded into the insertion tube, inserted to the sounded depth (7 cm), and the IUD is deployed. Insertion tube was removed. Strings are trimmed to 3 cm. There were no complications with insertion. The tenaculum was removed from the anterior lip of the cervix and silver nitrate was used for hemostasis at the tenaculum sites. Excellent hemostasis was noted. All instruments were removed. Sponge, lap and needle counts were correct x 2. The patient was taken to the recovery room in stable condition. Debrief performed per protocol and specimen reviewed. Condition: stable Disposition: PACU
--- NOTE | 2024-03-05 10:51 | SUR.OPER ---
PATIENT/GUADERIAN QUESTIONS ANSWERED SATISFACTORILY PREOPERATIVELY. PATIENT BROUGHT TO OR #4 PER CART. Patient positioned supine on OR #4 bed.? Perioperative team supported arms bilaterally on arm boards.? Final approval of positioning by surgeon.
--- NOTE | 2024-03-05 10:57 | W.ANESCHARGE ---
Anesthesia Charges Start Date/Time Anesthesia Start Date: 03/05/24 Anesthesia Start Time: 10:10 Stop Date/Time Anesthesia Stop Date: 03/05/24 Anesthesia Stop Time: 10:55
[2024-03-05 11:00] VITALS: BP 154/79; PULSE 67; RESP 18; TEMP 36.3; O2SAT 92
[2024-03-05 11:16] VITALS: BP 160/96; PULSE 59; RESP 18; O2SAT 97
--- NOTE | 2024-03-05 11:26 | W.ANESCHARGE ---
Anesthesia Charges Start Date/Time Anesthesia Start Date: 03/05/24 Anesthesia Start Time: 10:10 Stop Date/Time Anesthesia Stop Date: 03/05/24 Anesthesia Stop Time: 10:55
[2024-03-05 11:30] VITALS: BP 152/86; PULSE 64; RESP 18; O2SAT 98
[2024-03-05 11:45] VITALS: BP 158/89; PULSE 61; RESP 18; O2SAT 97
[2024-03-05 12:17] VITALS: BP 163/89; PULSE 63; RESP 18; O2SAT 98
== END 2024-03-05 12:24 | disposition home or self-care (01) ==
PROVIDERS: PCP Nurse Practitioner Family; Visit Provider Obstetrics & Gynecology
PROC: (CPT 58301; principal; 2024-03-05 08:45)
DX: Z30.433 Encounter for removal and reinsertion of intrauterine contraceptive device (principal); E11.69 Type 2 diabetes mellitus with other specified complication; E66.9 Obesity, unspecified; Z68.43 Body mass index [BMI] 50.0-59.9, adult
CPT/HCPCS: 58301; 58300; 00940; 36415; 82962; 84703; 86850; 86900; 86901; J1100; J1885; J2250; J2405; J2704; J3010; J3490; J7120; J7298

== ENCOUNTER 2025-09-22 16:07 | Outpatient (REF) | payer MEDICAID, SELFPAY ==
--- OUTSIDE RECORDS SUMMARY | 2025-08-11 10:00 | XMS_ITS | Encounter Summary ---
Author Organization [facility] Address [address] [place] [address] Care Team Providers Care Track Walker Name Role Phone Erma Lucia Primary Care Provider [phone] Reason for Referral * CV Testing (Routine) - Pending Review Specialty Diagnoses / Procedures Referred By Camilo t Referred To Contact Diagnoses Cardiac pacemaker in situ 2nd degree AV block Procedures Cardiac Device Check - Remote Vinicio Arroyo MD [address] [place] [address] Phone: tel: fax: Referral ID Status Reason Start Date Expiration Date V isits Requested Visits Authorized [id number] Pending Review 08/11/2025 08/11/2026 24 24 Reason for Visit * CV Testing (Routine) - Pending Review Specialty Diagnoses / Procedures Referred By Camilo flores Referred To Contact Diagnoses Cardiac pacemaker in situ Procedures Cardiac Device Check - In Clinic Ricci Perez MD [address] [address] Phone: tel: fax: Referral ID Status Reason Start Date Expiration Date V isits Requested Visits Authorized [id number] Pending Review 06/14/2025 06/14/2026 2 2 Encounter Details Date Type Department Care Team (Latest Contact Info) Description 08/11/2025 11:00 AM CDT Ancillary Procedure [facility] [place] [address] [facility] [address] [place] [phone] Ricci Perez MD [address] [address] 2nd degree AV block (Primary Dx); Cardiac pacemaker in situ Social History Tobacco Use Types Packs/Day Years Used Date Smoking Tobacco: Never Comments:NO SECOND HAND SMOK E Alcohol Use Standard Drinks/Week Comments No 0 (1 standard drink = 0.6 oz pur e alcohol) Adolescent Education Answer Date Record ed Getting School Help Needed Not on file 09/01 Food Insecurity Answer Date Recorded Within the past 12 months, d id you worry that your food would run out before you got money to buy more? No 06/08/2025 Within the past 12 months, d id the food you bought just not last and you didn t have money to get more? No 06/08/2025 Housing Stability Answer Date Recorded Do you have housing? (Theresein g is defined as stable permanent housing and does not include staying outside in a car, in a tent, in an abandoned building, in an overnight group home, or couch-surfing.) Yes 06/08/2025 Are you worried about losing your housing? No 06/08/2025 Financial Resource Strain Answer Date R ecorded Within the past 12 months, h ave you or your family members you live with been unable to get utilities (heat, electricity) when it was really needed? No 06/08/2025 Transportation Needs Answer Date Record ed Within the past 12 months, h as lack of transportation kept you from medical appointments, getting your medicines, non-medical meetings or appointments, work, or from getting things that you need? No 06/08/2025 Comments No Sex and Gender Information Value Date Recorded Sex Assigned at Not on file Legal Sex Female 3:24 AM METER TESTER PRIMARY Gender Identity Not on file Sexual Orientation Not on file documented as of this encounter Plan of Treatment Upcoming Encounters Date Type Department Care Team (Late st Contact Info) Description 11/16/2025 Ancillary Procedure [facility] [address] [facility] [address] [place] [phone] Vinicio Arroyo MD [address] [place] [address] Scheduled Orders Name Type Priority Associated Diagnoses Order Schedule Cardiac Device Check - Remote Implantable Cardiac Device Routine Cardiac pacemaker in situ 2nd degree AV block 24 Occurrences starting 08/11/2025 until 08/11/2027 documented as of this encounter Procedures Procedure Name Priority Date/Time Associated Diagnosis Comments PM DEVICE PROGRAMMING EVAL, DUAL LEAD PACER Routine 08/11/2025 11:09 AM CDT Cardiac pacemaker in situ documented in this encounter Results * PM DEVICE PROGRAMMING EVAL, DUAL LEAD PACER (08/11/2025 11:09 AM CDT) Date Time Interrogation Session [id number] [employer] Implantable Pulse Generator Geomagnetist Medtronic [employer] Implantable Pulse Generator Model [id number] [place]ickox XT MRI [employer] Implantable Pulse Generator Serial Number [id number] [employer] Type Interrogation Session In Clinic [facility] Clinic Name [facility] [employer] Implantable Pulse Generator Type Pacemaker [employer] Implantable Pulse Generator Implant Date 20250611 [employer] Implantable Lead Geomagnetist Medtronic [employer] Implantable Lead Model 3830 SelectSecure MRI SureScan [employer] Implantable Lead Serial Number [id number] [employer] Implantable Lead Implant Date 20250611 [employer] Implantable Lead Polarity Type Bipolar Lead [employer] Implantable Lead Location Detail 1 LBB [employer] Implantable Lead Location Right Ventricle [employer] Implantable Lead Connection Status Connected [employer] Implantable Lead Geomagnetist Medtronic [employer] Implantable Lead Model 5076 CapSureFix Novus MRI SureScan [employer] Implantable Lead Serial Number [id number] [employer] Implantable Lead Implant Date 20250611 [employer] Implantable Lead Polarity Type Bipolar Lead [employer] Implantable Lead Location Detail 1 UNKNOWN [employer] Implantable Lead Location Right Atrium [employer] Implantable Lead Connection Status Connected [employer] Rj Setting Mode (NBG Code) DDD [employer] Rj Setting Lower Rate Limit 60 {beats}/ min [employer] Rj Setting Maximum Tracking Rate 140 {beats}/ min [employer] Rj Setting Maximum Sensor Rate 140 {beats}/ min [employer] Rj Setting Hysterisis Rate DISABLED [employer] Rj Setting LUCILLE Delay Low 150 ms [employer] Rj Setting PAV Delay Low 180 ms [employer] Jr Setting AT Mode Switch Rate 171 {beats}/ min [employer] Lead Channel Setting Sensing Polarity Bipolar [employer] Lead Channel Setting Sensing Anode Location Right Atrium [employer] Lead Channel Setting Sensing Anode Terminal Ring [employer] Lead Channel Setting Sensing Cathode Location Right Atrium [employer] Lead Channel Setting Sensing Cathode Terminal Tip [employer] Lead Channel Setting Sensing Sensitivity 0.3 mV [employer] Lead Channel Setting Sensing Polarity Bipolar [employer] Lead Channel Setting Sensing Anode Location Right Ventricle [employer] Lead Channel Setting Sensing Anode Terminal Ring [employer] Lead Channel Setting Sensing Cathode Location Right Ventricle [employer] Lead Channel Setting Sensing Cathode Terminal Tip [employer] Lead Channel Setting Sensing Sensitivity 0.9 mV [employer] Lead Channel Setting Pacing Polarity Bipolar [employer] Lead Channel Setting Pacing Anode Location Right Atrium [employer] Lead Channel Setting Pacing Anode Terminal Ring [employer] Lead Channel Setting Sensing Cathode Location Right Atrium [employer] Lead Channel Setting Sensing Cathode Terminal Tip [employer] Lead Channel Setting Pacing Pulse Width 0.4 ms [employer] Lead Channel Setting Pacing Amplitude 1.5 V [employer] Lead Channel Setting Pacing Capture Mode Adaptive [employer] Lead Channel Setting Pacing Polarity Bipolar [employer] Lead Channel Setting Pacing Anode Location Right Ventricle [employer] Lead Channel Setting Pacing Anode Terminal Ring [employer] Lead Channel Setting Sensing Cathode Location Right Ventricle [employer] Lead Channel Setting Sensing Cathode Terminal Tip [employer] Lead Channel Setting Pacing Pulse Width 0.4 ms [employer] Lead Channel Setting Pacing Amplitude 2 V [employer] Lead Channel Setting Pacing Capture Mode Adaptive [employer] Zone Setting Type Category VF [employer] Zone Setting Vendor Type Category V High Rate [employer] Zone Setting Type Category VT [employer] Zone Setting Vendor Type Category FastVT [employer] Zone Setting Type Category VT [employer] Zone Setting Vendor Type Category VT [employer] Zone Setting Type Category VT [employer] Zone Setting Vendor Type Category MonVT [employer] Zone Setting Status Monitor [employer] Zone Setting Detection Interval 400 ms [employer] Zone Setting Type Category ATRIAL_FIBRILLATI ON [employer] Zone Setting Vendor Type Category FastATAF [employer] Zone Setting Type Category AT/AF [employer] Zone Setting Status Monitor [employer] Zone Setting Detection Interval 350 ms [employer] Lead Channel Impedance Value 627 ohm [employer] Lead Channel Impedance Value 361 ohm [employer] Lead Channel Sensing Intrinsic Amplitude 1.625 mV [employer] Lead Channel Sensing Intrinsic Amplitude 1.625 mV [employer] Lead Channel Pacing Threshold Amplitude 0.875 V [employer] Lead Channel Pacing Threshold Pulse Width 0.4 ms [employer] Lead Channel Impedance Value 608 ohm [employer] Lead Channel Impedance Value 456 ohm [employer] Lead Channel Sensing Intrinsic Amplitude 24.5 mV [employer] Lead Channel Sensing Intrinsic Amplitude 1 mV [employer] Lead Channel Pacing Threshold Amplitude 0.625 V [employer] Lead Channel Pacing Threshold Pulse Width 0.4 ms [employer] Battery Date Time of Measurements [id number] [employer] Battery Status OK [employer] Battery CHARTER BOAT CAPTAIN Trigger 2.625 [employer] Battery Remaining Longevity 156 mo [employer] Battery Voltage 3.20 V [employer] Rj Statistic Date Time Start [id number] [employer] Rj Statistic Date Time End [id number] [employer] Rj Statistic RA Percent Paced 1.58 % [employer] Rj Statistic RV Percent Paced 99.96 % [employer] Rj Statistic AP AUTOMATIC TIRE TESTER Percent 1.58 % [employer] Rj Statistic AUTOMATIC TIRE TESTER Percent 98.38 % [employer] Rj Statistic AP VS Percent 0 % [employer] Rj Statistic VS Percent 0.03 % [employer] Atrial Tachy Statistic Date Time Start [id number] [employer] Atrial Tachy Statistic Date Time End [id number] [employer] Atrial Tachy Statistic AT/AF [place] Percent 0 % [employer] Therapy Statistic Recent Date Time Start [id number] [employer] Therapy Statistic Recent Date Time End [id number] [employer] Therapy Statistic Total Date Time Start 93096072715742 [employer] Therapy Statistic Total Date Time End [id number] [employer] Episode Statistic Recent Count 0 [employer] Episode Statistic Type Category AT/AF [employer]TR[employer] Episode Statistic Recent Count 0 [employer] Episode Statistic Type Category Patient Activated [employer] Episode Statistic Recent Count 0 [employer] Episode Statistic Type Category SVT [employer]TR[employer] Episode Statistic Recent Count 0 [employer] Episode Statistic Type Category VT [employer] Episode Statistic Recent Count 0 [employer] Episode Statistic Type Category VT [employer] Episode Statistic Recent Date Time Start [id number] [employer] Episode Statistic Recent Date Time End [id number] [employer] Episode Statistic Recent Date Time Start [id number] [employer] Episode Statistic Recent Date Time End [id number] [employer] Episode Statistic Recent Date Time Start 85573799532170 [employer] Episode Statistic Recent Date Time End 05392901154287 [employer] Episode Statistic Recent Date Time Start [id number] [employer] Episode Statistic Recent Date Time End [id number] [employer] Episode Statistic Recent Date Time Start [id number] [employer] Episode Statistic Recent Date Time End [id number] [employer] Episode Statistic Total Count 3 [employer] Episode Statistic Type Category AT/AF [employer] Episode Statistic Total Count 0 [employer] Episode Statistic Type Category Patient Activated [employer] Episode Statistic Total Count 0 [employer] Episode Statistic Type Category SVT [employer]TR[employer] Episode Statistic Total Count 0 [employer] Episode Statistic Type Category VT [employer] Episode Statistic Total Count 0 [employer] Episode Statistic Type Category VT [employer] Episode Statistic Total Date Time Start [id number] [employer] Episode Statistic Total Date Time End [id number] [employer] Episode Statistic Total Date Time Start [id number] [employer] Episode Statistic Total Date Time End [id number] [employer] Episode Statistic Total Date Time Start [id number] [employer] Episode Statistic Total Date Time End [id number] [employer] Episode Statistic Total Date Time Start 68692983091647 [employer] Episode Statistic Total Date Time End [id number] [employer] Episode Statistic Total Date Time Start [id number] [employer] Episode Statistic Total Date Time End 58063850957170 [employer] Anatomical Region Laterality Modality Other 08/11/2025 10:5 8 AM CDT Narrative 08/11/2025 4:36 PM CDT Medtronic [place]ickox (D) Pacemaker Device Check Patient seen in clinic for device evaluation and iterative programming. Mode: DDD 60-140 Underlying Rhythm: SR 70s (PPM implanted for high degree AVB) Pacing/Histogram Data Since: 07/05/2025 AP: 2 % AUTOMATIC TIRE TESTER: 100 % (RV lead position = LB region) Heart Rate: excellent variability Sensing: WNL Pacing Threshold: WNL Impedance: WNL Battery Status: 12.9 yrs estimated longevity Device Site: [facility], healed well, no signs of infection or hematoma Arrhythmia Data Since: 07/05/2025 Atrial Arrhythmia: 0 Ventricular Arrhythmia: 0 Setting Change: adjusted alerts per clinic protocol Care Plan: Scheduled remote in 3 months. OV with Connie GRISSOM 09/16/2025 EC RN I have reviewed and interpreted the device interrogation, settings, programming and nurse's summary. The device is functioning within normal device parameters, unless otherwise noted above. I agree with the current findings, assessment, and plan. us Ricci Perez MD CV CARDIAC SERVICES ORDERABLES F inal Result documented in this encounter Visit Diagnoses Diagnosis 2nd degree AV block- Primary Other second degree atrioventricular block Cardiac pacemaker in situ documented in this encounter Care Teams Track Walker Relationship Specialty Start Date End Date Erma Lucia PA [address] [place] [address] PCP - General Family Practice 06/22/25 Amy Magallanes Psychiatrist 01/16/24 documented as of this encounter
--- OUTSIDE RECORDS SUMMARY | 2025-09-16 12:20 | XMS_ITS | Encounter Summary ---
Author Organization [facility] Address [address] [place] [address]. [place] [address] Care Team Providers Care Computer Hardware Engineer Name Role Phone Erma Lucia Primary Care Provider [phone] Reason for Referral * Consultation (Routine: Next available opening) - Pending Review Specialty Diagnoses / Procedures Referred By Camilo flores Referred To Contact Cardiovascular Disease Diagnoses Cardiac pacemaker in situ Connie Posada PA-C [address] [place] [address] Phone: tel: fax: Referral ID Status Reason Start Date Expiration Date V isits Requested Visits Authorized [id number] Pending Review 09/16/2025 09/16/2026 1 1 Question Answer Follow-up with: LINDA Reason for follow-up: EP EP Cardiology: DEVICE Patient Scheduling Instructions: [facility] will call you to coordinate your care as prescribed by your provider. If you have concerns about scheduling, please call [phone]. Comments [facility] will call you to coordinate your care as prescribed by your provider. If you have concerns about scheduling, please call [phone]. Reason for Visit * Reason Comments Follow Up hospital follow up * Consultation (Routine: Next available opening) - Pending Review Specialty Diagnoses / Procedures Referred By Camilo flores Referred To Contact Cardiovascular Disease Diagnoses Cardiac pacemaker in situ Heart block Vinicio Aroryo MD [address] [place] [address] Phone: tel: fax: Referral ID Status Reason Start Date Expiration Date V isits Requested Visits Authorized [id number] Pending Review 06/22/2025 06/22/2026 1 1 Encounter Details Date Type Department Care Team (Late st Contact Info) Description 09/16/2025 1:20 PM CDT Office Visit [facility] [address] [facility] [address] [place] [phone] Connie Posada PA-C [address] [id number] Cardiac pacemaker in situ (Primary Dx) Social History Tobacco Use Types Packs/Day Years Used Date Smoking Tobacco: Never Smokeless Tobacco: Never Tobacco Cessation:Counseling Given: Not Answered Comments:NO SECOND HAND SMOKE Alcohol Use Standard Drinks/Week Comments No 0 (1 standard drink = 0.6 oz pur e alcohol) AUDIT-C Answer Date Recorded Q1: How often do you have a drink containing alcohol? Never 09/16/2025 Q2: How many drinks containi ng alcohol do you have on a typical day when you are drinking? Patient does not drink Q3: How often do you have si x or more drinks on one occasion? Never 09/16/2025 PHQ-2 Answer Date Recorded PHQ-2 Score 0 09/16/2025 Adolescent Education Answer Date Record ed Getting [...] Answer Date Recorded Do you have housing? 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 Gender Identity Not on file Sexual Orientation Not on file documented as of this encounter Last Filed Vital Signs Vital Sign Reading Time Taken Comments Blood Pressure 128/83 09/16/2025 1:18 PM CDT Pulse 79 09/16/2025 1:18 PM CDT Temperature - - Respiratory Rate - - Oxygen Saturation 98% 09/16/2025 1:18 PM CDT Inhaled Oxygen Concentration - - Weight 119.8 kg (264 lb 3.2 oz) 09/16/2025 1:18 PM CDT Height 142.2 cm (4' 8) 09/16/2025 1:18 PM CDT Body Mass Index 59.23 09/16/2025 1:18 PM CDT documented in this encounter Functional Status * AUDIT-C Score Answer Date of Assessment Author 0 09/16/2025 1:33 PM CDT Jose Bright * Question Answer Date of Assessment Author Q1: How often do you have a drink containing alcohol? Never 09/16/2025 1:33 PM CDT Jose Bright Q2: How many drinks containing alcohol do you have on a typical day when you are drinking? Patient does not drink 09/16/2025 1:33 PM CDT Jose Bright Q3: How often do you have six or more drinks on one occasion? Never 09/16/2025 1:33 PM CDT Jose Bright documented as of this encounter Patient Instructions * Patient Instructions* Connie Posada PA-C - 09/16/2025 1:20 PM CDT Call the nurse for any questions or concerns at [phone]. If you have a device related question, please call [phone]. Plan: 1. Medication changes: none 2. Continue device checks per routine 3. EP follow-up in 1 year, sooner if needed -Scheduling phone number: [phone] It was great seeing you today! Connie Posada PA-C Physician Gas Examiner [facility] documented in this encounter Progress Notes * Connie Posada PA-C - 09/16/2025 1:20 PM CDT EP Cardiology Clinic Progress Note Maxime Stack Date of : 1990 Age: [age] year old Primary Patient Observation Assistant: Dr. Perez Reason for visit: EP follow-up Assessment and Plan: Maxime Stack is a very pleasant 34 year old female who is here today for EP follow-up. 1. 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 Continue device checks per routine. Changes today: none Maxime presents to clinic today for EP follow-up, accompanied by her mother. She reports feeling quite well from a cardiac perspective since pacemaker implantation. She has not had another episode ofsyncope. She denies any symptoms concerning for angina or decompensated heart failure. Patient willcontinue device checks per routine and plan to follow-up in the electrophysiology clinic in 1 year,sooner if needed. Follow up plan: Continue device checks per routine EP follow-up in 1 year, sooner if needed Connie Posada PA-C [facility] Pager: [phone] History of Presenting Illness: Maxime Stack is a very pleasant 34 year old female with a history of cognitive delay with behavioral disturbances, schizophrenia, KALIE, hypertension, hypothyroidism, and VSD s/p repair admitted on 06/08/2025 after an episode of syncope found to be bradycardic and in 2:1 AV block with prolonged QT interval. [place] to potentially be caused by psychiatric medications in combination with propranolol. Doses decreased and propranolol held. Given ongoing bradycardia with 2:1 AV block, patient was transferred to [facility] for EP evaluation. She was seen in consultation by Dr. Perez who recommended implantation of permanent pacemaker. On 06/11/2025, patient underwent dual-chamber permanent pacemaker implant. She tolerated the procedure well without apparent complication. Over the weekend, RV lead noted to have high output thresholds with lack of adequate capture on device interrogation and the lead was turned off. She underwent lead revision 06/14/2025 and was ultimately discharged 06/17/2025 after her psychiatric medications were optimized. Device interrogation 08/11/2025 revealed normal device and lead function, AP 2%, FISH BONING MACHINE FEEDER 100%, no arrhythmias detected. Patient is here today for EP follow-up. She reports feeling well since pacemaker implantation. She has not had any further episodes of syncope. She denies chest pain, palpitations, orthopnea or PND. Blood pressure 128/83 and HR 79 in clinic today. Social History Social History Socioeconomic History Marital status: Single [...] Social History Narrative Not on file Social Drivers of Health Financial Resource Strain: Low Risk (06/08/2025) Financial Resource Strain Within the past 12 months, have you or your family members you live with been unable to get utilities (heat, electricity) when it was really needed?: No Food Insecurity: Low Risk (06/08/2025) Food Insecurity Within the past 12 months, did you worry that your food would run out before you got money to buy more?: No Within the past 12 months, did the food you bought just not last and you didn???t have money to getmore?: No Transportation Needs: Low Risk (06/08/2025) Transportation Needs Within the past 12 months, has lack of transportation kept you from medical appointments, getting your medicines, non-medical meetings or appointments, work, or from getting things that you need?: No Physical Activity: Inactive (07/28/2020) Received from [facility] Exercise Vital Sign Days of Exercise per Week: 1 day Minutes of Exercise per Session: 0 min Stress: No Stress Concern Present (07/28/2020) Received from [facility] [employer] - Occupational Stress Questionnaire Feeling of Stress : Not at all Social Connections: Socially Integrated (04/11/2025) Received from [facility] Social Connections Do you often feel lonely or isolated from those around you?: 0 Interpersonal Safety: Not At Risk (07/28/2020) Received from [facility] Humiliation, Afraid, Rape, and Kick questionnaire Within the last year, have you been afraid of your partner or ex-partner?: No Within the last year, have you been humiliated or emotionally abused in other ways by your partner or ex-partner?: No Within the last year, have you been kicked, hit, slapped, or otherwise physically hurt by your partner or ex-partner?: No Within the last year, have you been raped or forced to have any kind of sexual activity by your partner or ex-partner?: No Housing Stability: Low Risk (06/08/2025) Housing Stability Do you have housing? : Yes Are you worried about losing your housing?: No Review of Systems: Please see HPI Physical Exam: Vitals: BP 128/83 (BP Location: Right arm, Patient Position: Sitting, Cuff Size: Adult Large) Pulse 79 Ht 1.422 m (4' 8) Wt 119.8 kg (264 lb 3.2 oz) SpO2 98% BMI 59.23 kg/m?? Wt Readings from Last 4 Encounters: 06/17/25 123.9 kg (273 lb 1.6 oz) 06/08/25 122 kg (268 lb 15.4 oz) 01/14/24 121.1 kg (267 lb) GEN: well nourished, in no acute distress. HEENT: Pupils equal, round. Sclerae nonicteric. NECK: Supple, no masses appreciated. No JVD C/V: Regular rate and rhythm, no murmur, rub or gallop. RESP: Respirations are unlabored. Clear to auscultation bilaterally without wheezing, rales, or rhonchi. GI: Abdomen soft, nontender. EXTREM: no LE edema. NEURO: Alert and oriented, cooperative. SKIN: Warm and dry. Data: LIPID RESULTS: Lab Results Component Value Date CHOL 168 01/05/2008 HDL 31 (L) 01/05/2008 LDL 104 01/05/2008 TRIG 168 (H) 01/05/2008 CHOLHDLRATIO 5.5 (H) 01/05/2008 LIVER ENZYME RESULTS: Lab Results Component Value Date AST 22 06/11/2025 AST 34 08/17/2009 ALT 23 06/11/2025 ALT 16 08/17/2009 CBC RESULTS: Lab Results Component Value Date WBC 9.6 06/13/2025 WBC 10.6 08/17/2009 RBC 5.02 06/13/2025 RBC 4.67 08/17/2009 HGB 14.5 06/13/2025 HGB 12.2 08/17/2009 HCT 43.4 06/13/2025 HCT 38.8 08/17/2009 MCV 87 06/13/2025 MCV 83 08/17/2009 MCH 28.9 06/13/2025 MCH 26.1 (L) 08/17/2009 MCHC 33.4 06/13/2025 MCHC 31.4 (L) 08/17/2009 RDW 14.6 06/13/2025 RDW 14.7 08/17/2009 PLT 204 06/13/2025 PLT 378 08/17/2009 BMP RESULTS: Lab Results Component Value Date NA 141 06/13/2025 NA 140 08/17/2009 POTASSIUM 4.1 06/13/2025 POTASSIUM 4.3 08/17/2009 CHLORIDE 103 06/13/2025 CHLORIDE 100 08/17/2009 CO2 25 06/13/2025 CO2 29 08/17/2009 ANIONGAP 13 06/13/2025 ANIONGAP 11 08/17/2009 GLC 99 06/13/2025 GLC 112 (H) 06/10/2025 GLC 81 08/17/2009 BUN 16.2 06/13/2025 BUN 14 08/17/2009 CR 0.90 06/13/2025 CR 0.79 08/17/2009 GFRESTIMATED 85 06/13/2025 GFRESTIMATED >90 08/17/2009 GFRESTBLACK >90 08/17/2009 JOSEP 9.4 06/13/2025 JOSEP 9.7 08/17/2009 A1C RESULTS: Lab Results Component Value Date A1C 5.8 01/05/2008 INR RESULTS: No results found for: INR Medications Current Outpatient Medications Medication Sig Dispense Refill amoxicillin (AMOXIL) 500 MG tablet Take 2,000 mg by mouth as needed (prior to dental procedure). ARIPiprazole (ABILIFY) 15 MG tablet Take 1 tablet (15 mg) by mouth daily. diphenhydrAMINE (BENADRYL) 25 MG tablet Take 1 tablet (25 mg) by mouth every 6 hours as needed (itching). haloperidol (HALDOL) 10 MG tablet Take 10 mg by mouth every evening. hydrOXYzine HCl (ATARAX) 25 MG tablet Take 25 mg by mouth 3 times daily. Takes at 0800, 1300, and 2000 lamoTRIgine (LAMICTAL) 100 MG tablet Take 1 tablet (100 mg) by mouth every morning. levothyroxine (SYNTHROID/LEVOTHROID) 137 MCG tablet Take 137 mcg by mouth daily before breakfast propranolol (INDERAL) 60 MG tablet Take 60 mg by mouth 3 times daily. Takes at 0800, 1300, and 2000. tirzepatide-weight management (ZEPBOUND) 5 MG/0.5ML vial Inject 5 mg subcutaneously once a week. 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 Short stature Unspecified otitis media recurrent Ventricular septal defect Past Surgical History: Procedure Laterality Date EP LEAD REPAIR FOR SINGLE ICD N/A 06/14/2025 Procedure: Pacemaker or Implantable Cardioverter Defibrillator Lead Repair-One Lead; Surgeon: Ricci Perez MD; Location: [facility] MACHINE OPERATOR EP PACEMAKER DEVICE & LEAD IMPLANT- RIGHT ATRIAL & RIGHT VENTRICULAR N/A 06/11/2025 Procedure: Pacemaker Device & Lead Implant - Right Atrial & Right Ventricular; Surgeon: Ricci Perez MD; Location: HEART CARDI[facility] MACHINE OPERATOR HC OPEN TX TRIMALLEOLAR ANKLE FX WO FIX POSTERIOR LIP 09/26/07 right HC REMOVAL ADENOIDS,PRIMARY,12+ Y/O 07/29/02 ZZ[facility] REPR VSD age 6-7 months Repair VSD with patching [facility] CREATE EARDRUM OPENING,GEN ANESTH 07/29/02 bilateral Family History Problem Relation Age of Onset Family History Negative Other Hypertension Maternal Grandmother Hypertension Maternal Grandfather Allergies Patient has no known allergies. 30 minutes spent on the date of the encounter doing chart review, history and exam, documentation and further activities as noted above Connie Posada PA-C [facility] Pager: [phone] documented in this encounter Plan of Treatment Upcoming Encounters Date Type Department Care Team (Late st Contact Info) Description 11/16/2025 Ancillary Procedure [facility] [address] [facility] [address] [place] [phone] Vinicio Arroyo MD [address] [facility] [address] [place] [address] Scheduled Referrals Name Type Priority Associated Diagnoses Orde r Schedule Follow-Up with Cardiology - LINDA Referral Routine: Next available opening Cardiac pacemaker in situ Expected: 09/16/2026 (Approximate), Expires: 12/15/2026 documented as of this encounter Visit Diagnoses Diagnosis Cardiac pacemaker in situ- Primary documented in this encounter Care Teams Computer Hardware Engineer Relationship Specialty Start Date End Date Erma Lucia PA [address] [place] [address] PCP - General Family Practice 06/22/25 Amy Magallanes Psychiatrist 01/16/24 documented as of this encounter
[2025-09-22 17:45] LABS: Hematocrit* 43.0 % (33.0-51.0); Hemoglobin* 14.3 gm/dL (12.0-16.0); Immature Granulocytes Abs Auto 0.02 K/uL (0.00-0.30); Immature Granulocytes Pct Auto 0.2 %; Lymphocytes Absolute Auto 2.86 K/uL (0.90-2.90); Mean Corpuscular HGB Conc 33 gm/dL (32-36); Mean Corpuscular Hemoglobin 28 pg (26-34); Mean Corpuscular Volume 83 fL (80-100); RDW Coefficient of Variation % 14.1 % (11.5-15.5); Red Blood Count* 5.19 m/uL (4.00-5.20); White Blood Count* 9.09 K/uL (4.50-11.00)
[2025-09-22 17:50] LABS: Slide Review Reflex No
[2025-09-22 18:06] LABS: Chloride* 107 mmol/L (96-114); Potassium* 3.6 mmol/L (3.6-5.1); Sodium* 141 mmol/L (135-149)
[2025-09-22 18:08] LABS: Blood Urea Nitrogen* 15 mg/dL (5-24); Creatinine* 0.8 mg/dL (0.5-1.5); Estimated Glomerular Filt Rate 98 ml/min
[2025-09-22 18:09] LABS: Anion Gap 11 mEq/L (7-15); Calcium* 10.0 mg/dL (8.4-10.6); Carbon Dioxide* 23 mmol/L (20-32); Cholesterol* 189 mg/dL (90-199); Glucose* 98 mg/dL (60-115); HDL Cholesterol* 37 mg/dL (>=50); Triglycerides* 196 mg/dL (40-149)
--- OUTSIDE RECORDS SUMMARY | 2025-09-23 00:13 | XMS_ITS | Clinical Summary ---
Author Organization [facility] Address [address] [place] [address] Care Team Providers Care Sail Repair Person Name Role Phone Amairani Ace D.O. Primary Care Provider [phone] Source Comments Patient records contain information from all sites at [facility]. For routine questions regarding patient records, call [phone] during business hours, M-F 8:00 AM - 5:00 PM Central Time. Record requests for emergency care only can be directed to [phone] at any time.[facility] Allergies No known active allergies Medications phenylephrine-p ramoxine-glycer in-white petrolatum (PREPARATION H) 0.25-1 % creamIndication s:Fissure Anal Insert 1 application into the rectum 2 (two) times a day as needed for irritation. 1 Tube 3 8 Active levothyroxine (SYNTHROID, LEVOTHROID) 137 mcg tablet Take 1 tablet (137 mcg total) by mouth daily. 90 tablet 3 2 Active amoxicillin (AMOXIL) 500 mg capsule TAKE 4 CAPSULES (2,000 MG TOTAL) BY MOUTH SEE ADMIN INSTRUCTIONS. PRIOR TO DENTAL VISITS 4 capsule 2 3 Active DULoxetine (CYMBALTA) [address] capsule Take 60 mg by mouth daily. 3 Active topiramate (TOPAMAX) 100 mg tablet Take 100 mg by mouth 2 (two) times a day. 3 Active traZODone (DESYREL) 100 mg tablet Take 100 mg by mouth at bedtime. 3 Active hydrOXYzine (ATARAX) 25 mg tablet Take 1 tablet by mouth every 8 (eight) hours as needed for anxiety. 3 Active lamoTRIgine (LaMICtaL) 200 mg tablet Take 200 mg by mouth daily. 3 Active ARIPiprazole (Abilify) 20 mg tablet Take 20 mg by mouth daily. In the evening Active topiramate (Topamax) 100 mg tablet Take 100 mg by mouth at bedtime. Active cloNIDine (Catapres) 0.1 mg tablet Take 0.1 mg by mouth at bedtime. 5 Active Ozempic 2 mg/dose (8 mg/3 mL) injection Inject 2 mg under the skin every 7 (seven) days. 5 Active propranoloL (InderaL) 60 mg tablet Take 1 tablet (60 mg total) by mouth every 12 (twelve) hours. 120 tablet 2 5 Active topiramate (Topamax) 100 mg tablet TAKE 1 TABLET BY MOUTH EVERY NIGHT AT BEDTIME 30 tablet 5 Active ARIPiprazole (Abilify) 5 mg tablet TAKE 1 TABLET BY MOUTH EVERY MORNING 30 tablet 5 Active topiramate (Topamax) 50 mg tablet TAKE 1 TABLET BY MOUTH EVERY MORNING 30 tablet 5 Active hydrOXYzine (VistariL) 25 mg capsule TAKE 1 CAPSULE BY MOUTH THREE TIMES DAILY NEEDED 90 capsule 5 Active risperiDONE (RisperDAL) 1 mg tablet TAKE 1 AND 1/2 TABLETS BY MOUTH EVERY NIGHT AT BEDTIME 45 tablet 1 5 Active Active Problems Problem Noted Date Diagnosed Date Bleeding Rectal 06/20/2021 Overview (06/20/2021): Added automatically from request for surgery [id number] Ventricular Septal Defect Repair Status Post 08/2020 Embolus Pulmonary Personal History 07/16/2020 Hypothyroidism On Replacement 03/04/2017 Morbid Obesity Body Mass Ind ex >= 35 with Comorbid Condition 12/22/2016 Overview (04/09/2017): Body mass index (BMI) 40.0-44.9, adult Rule activated problem due to BMI 40-44 posted on 12/22 at 14:51 [employer]. Stone Common Duct 09/05/2016 Developmental Delay Physiological 02/13/2014 Overview (11/19/2017): DELAY DEVELOPMENT Resolved Problems Problem Noted Date Diagnosed Date Resolved Date Thrombosis Deep Vein Acute Calf Left 07/16/2020 11/16/2020 Menometrorrhagia 07/16/2020 11/16/2020 Overview (07/16/2020): Added automatically from request for surgery [id number] Bleeding Vaginal 07/16/2020 07/28/2020 Overview (07/18/2020): Added automatically from request for surgery [id number] Pain Joint Ankle Right 03/16 Immunizations Immunization Administration Dates Next Due DTP 04/29/1995, 1,1990,1989,06/02/1990 HepB, Unspecified 02/08/2000,07/11/1999,03/30/19 99 Influenza Split 08/18/2016 Influenza, Injectable, Quadrivalent 08/14/2019,1 Influenza, Seasonal, Injectable 08/14/20 12,08/02/2010,11/03/2007,2004,09/13/2004,09/11/2001 Influenza, Unspecified 08/02/2016,2014,09/10/2013,2011,09/10/2011 MMR 03/30/1999,04/06/1990 OPV, Trivalent 04/29/1995 Polio, Unspecified 04/21/1991,1990, 990 Td (Adult), adsorbed 03/24/2003 Tdap 05/26/2021,02/27/2011 influenza trivalent high dos e (HD)(PF) 08/18/2016 influenza vaccine quad (FLUZONE/FLUARIX) (6 months and older)(PF) 08/15/2020,11/26/2018,08/07/2017,2015,08/24/2014 Family History Medical History Relation Name Comments Ovarian cancer Aunt 1 Breast cancer (in one breast) Aunt 2 Coronary artery bypass graft Maternal Grandmother Relation Name Status Comments Aunt 1 Alive Aunt 2 Alive Father Alive Maternal Grandmother Mother Alive Social History Tobacco Use Types [...] by your partner or ex-partner? No 07/28/2020 Hunger Vital Sign Answer Date Recorded [...] things needed for daily living? No 07/28/2020 Education Answer Date Recorded What is the highest level of school you have completed or the highest degree you have received? 12th grade 07/28/2020 Comments No Sex and Gender Information Value Date Recorded Sex Assigned at Not on file Legal Sex Female 4:21 PM [employer] Gender Identity Not on file Sexual Orientation Not on file Last Filed Vital Signs Vital Sign Reading Time Taken Comments Blood Pressure 139/84 12/22/2024 2:22 PM [employer] Pulse 66 12/22/2024 2:22 PM [employer] Temperature 36 C (96.8 F) 12/22/2024 2:22 PM [employer] Respiratory Rate 20 12/22/2024 2:22 PM [employer] Oxygen Saturation 100% 12/22/2024 2:22 PM [employer] Inhaled Oxygen Concentration - - Weight 120 kg (264 lb 8 oz) 12/22/2024 2:[address] Height 146.1 cm (4' 9.5) 12/10/2024 11:02 AM CS T Body Mass Index 56.25 12/10/2024 11:02 AM [employer] Plan of Treatment Health Maintenance Due Date Last Done Comments Hepatitis C Screening 1989 HPV Vaccines (1 - 3-dose SCDM series) 2016 Depression Screening (Annual PHQ-2) 11/18/2024 COVID-19 Vaccine ( season) 2025 Influenza Vaccine (#1) 2025 , 10/19/2021, 10/05/2021, Additional history exists Thyroid Stimulating Hormone (TSH) test for thyroid function 12/10/2025 12/10/2024, 10/23/2023, 06/05/2022, Additional history exists Glucose Test for Med Monitoring 02/13/2026 02/13/2025, 12/10/2024, 12/10/2024, Additional history exists Cervical/Vaginal Cancer Screening 11/20/2026 11/20/2023 Lipid (Cholesterol) Screening 12/10/2029 12/10/2024, 06/05/2022, 05/26/2021, Additional history exists DTaP,Tdap,and Td Vaccines (8 - Td or Tdap) 05/26/2031 05/26/2021, 02/27/2011, 03/24/2003, Additional history exists IPV Vaccines Completed 04/29/1995, 02/1991, 1990, Additional history exists Hepatitis B Vaccines Completed 02/08/2000, 07/11/1999, 03/30/1999 Pneumococcal vaccine (0-49 years) Aged Out No longer eligible based on patient's age to complete this topic Medical Devices Implanted Type Area Web Communications Specialist Device Identifier Shelf Expiration Date Model / Serial / Lot Ankle Implant Ankle Implant Left: Ankle Intrauterine Device Intrauterine Device Uterus Procedures Procedure Name Priority Date/Time Associated Diagnosis Comments LIPID PANEL, S Routine 12/10/2024 1:20 PM [employer] Screening Lipid COMPREHENSIVE METABOLIC PANEL, S/P Routine 12/10/2024 1:20 PM [employer] Morbid Obesity Body Mass Index 50.0-59.9 Adult (HCC) THYROID FUNCTION CASCADE, S Routine 12/10/2024 1:20 PM [employer] Hypothyroidism from Last 3 Months or Most Recently Relevant to Health Maintenance Results * (ABNORMAL) Lipid Panel (12/10/2024 1:20 PM [employer]) Triglycerides 137 mg/dL 12/10/2024 1:47 PM [employer] NPRG Comment: ----REFERENCE VALUE---- Normal: <150 mg/dL Borderline High: 150-199 mg/dL High: 200-499 mg/dL Very High: > or =500 mg/dL Cholesterol, Total 161 mg/dL 2024 1:47 PM [employer] NPRG Comment: ----REFERENCE VALUE---- Desirable: < 200 mg/dL Borderline High: 200 - 239 mg/dL High: > or = 240 mg/dL Cholesterol, LDL, Calculated 101 mg/dL 12/10/2024 1:47 PM [employer] NPRG Comment: ----REFERENCE VALUE---- Desirable: <100 mg/dL Above Desirable: 100-129 mg/dL Borderline High: 130-159 mg/dL High: 160-189 mg/dL Very High: >=190 mg/dL ----ADDITIONAL INFORMATION---- LDL cholesterol calculated using the Neri/NIH equation. Cholesterol, HDL 35(L) >=50 mg/dL 12/10/19 1:47 PM [employer] NPRG Cholesterol, Non-HDL, Calculated 126 mg/dL 12/10/2024 1:47 PM [employer] NPRG Comment: ----REFERENCE VALUE---- Desirable: <130 mg/dL Above Desirable: 130-159 mg/dL Borderline High: 160-189 mg/dL High: 190-219 mg/dL Very High: > or =220 mg/dL Fasting (8 HR or more) Yes 12/10/2024 1:20 PM [employer] NPRG Blood (Blood, Venous) 12/10/2024 1:20 PM [employer] 12/10/2024 1:27 PM [employer] us Amairani B Viere D.O. LAB BLOOD ADD-ON Final Result Performing Organization Address City/[facility]/ZIP Co de Phone Number [facility] [address] [place] [address], [facility] NPRG [place] [address] [place] [address] * Thyroid Function [place] (12/10/2024 1:20 PM [employer]) TSH, Sensitive 3.0 0.3 - 4.2 mIU/L 12/10/2024 2:21 PM [employer] NPRG Blood (Blood, Venous) 12/10/2024 1:20 PM F[employer]NACE [employer] 12/10/2024 1:27 PM [employer]NA[employer] Amairani Ace D.O. LAB BLOOD ADD-ON Final Result Performing Organization Address [facility] Co de Phone Number [facility] [address] [place] [address], [facility] NPRG [place] [address] [place] [address] * (ABNORMAL) Comprehensive Metabolic Panel (12/10/2024 1:20 PM [employer]NA[employer]) Potassium, P 4.1 3.6 - 5.2 mmol/L 12/10/2024 1:47 PM [employer] NPRG Sodium, P 139 135 - 145 mmol/L 12/10/2024 1:47 PM [employer] NPRG Chloride, P 105 98 - 107 mmol/L 12/10/2024 1:47 PM [employer] NPRG Bicarbonate, P 22 22 - 29 mmol/L 12/10/2024 1:47 PM [employer] NPRG Anion Gap, P 12 7 - 15 12/10/2024 1:47 PM [employer] NPRG BUN (Blood Urea Nitrogen), P 18 6 - 21 mg/dL 12/10/2024 1:47 PM [employer] NPRG Creatinine 0.78 0.59 - 1.04 mg/dL 12/10/2024 1:47 PM [employer]NA[employer] NPRG Estimated GFR (eGFR) >90 >=60 mL/min/BS A 12/10/2024 1:47 PM [employer] NPRG Comment: Estimated GFR calculated using the 2020 CKD_EPI creatinine equation. Calcium, Total, P 9.6 8.6 - 10.0 mg/dL 12/10/2024 1:47 PM [employer] NPRG Glucose, P 104 70 - 140 mg/dL 12/10/2024 1:47 PM [employer] NPRG Protein, Total, P 8.0(H) 6.3 - 7.9 g/dL 12/10/2024 1:47 PM [employer] NPRG Albumin, P 4.4 3.5 - 5.0 g/dL 12/10/2024 1:47 PM [employer] NPRG Aspartate Aminotransferase (AST), P 22 8 - 43 U/L 12/10/2024 1:47 PM [employer] NPRG Alkaline Phosphatase, P 89 35 - 104 U/L 12/10/2024 1:47 PM [employer] NPRG Alanine Aminotransferase (ALT), P 30 7 - 45 U/L 12/10/2024 1:47 PM [employer]NA[employer] G[employer] NPRG Bilirubin, Total, P 0.3 0.0 - 1.2 mg/dL 12/10/2024 1:47 PM F[employer]NA[employer]PER[employer] G[employer] NPRG Blood (Blood, Venous) 12/10/2024 1:20 PM FURNACE OPERATOR [employer] GAS 12/10/2024 1:27 PM FURNACE OPER[employer] G[employer] us Amairani Ace D.O. LAB BLOOD ADD-ON Final Result [facility] [address] [place] [address], [facility] NPRG [facility] [address] [place] [address] from Last 3 Months or Most Recently Relevant to Health Maintenance [place] [address] Advance Directives For more information, please contact: [phone] * Full Code (Latest Code Status on File) Date Activated Date Inactivated Comments 07/18/2020 1:42 PM 07/24/2020 12:06 PM Question Answer Comments Full Code: Discussed * Full Code Date Activated Date Inactivated Comments 07/16/2020 5:26 PM 07/18/2020 1:42 PM Question Answer Comments Full Code: Discussed Care Teams Sail Repair Person Relationship Specialty Start Date End Date Amairani Ace D.O. [address] [place] [id number] PCP - General Family Medicine 12/16/24
--- OUTSIDE RECORDS SUMMARY | 2025-09-23 00:16 | XMS_ITS | Encounter Summary ---
Author Organization [facility] Address [address] [place] [address]. 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 [address] [facility] [address] [place] [phone] Vinicio Arroyo MD [address] [facility] [address] [place] [address] documented as of this encounter Visit Diagnoses Not on filedocumented in this encounter Care Teams Cork Molder Relationship Specialty Start Date End Date Erma Lucia PA [address] [place] [address] PCP - General Family Practice 06/22/25 Amy Magallanes Psychiatrist 01/16/24 documented as of this encounter
--- OUTSIDE RECORDS SUMMARY | 2025-09-23 00:16 | XMS_ITS | Clinical Summary ---
Author Organization [facility] Address [address] [place] [id number] Care Team Providers Care Traffic Analysis Technician Name Role Phone Erma Lucia Primary Care Provider [phone] Dominguez Goode Unavailable [phone] Leandra Jung PharmD Unavailable [phone] Allergies No known active allergies Medications amoxicillin 500 mg tabletIndications :S/P VSD repair Take 4 tablets (2,000 mg) 30 minutes prior to dental procedure to prevent infective endocarditis. 4 Tablet 03/09/20 25 Active tirzepatide (weight loss) (Zepbound) 12.5 mg/0.5 mL penIndications:Mo rbid obesity (HC) Inject 12.5 mg subcutaneous once weekly. 3 mL 09/16/20 25 Active CPAPIndications:O SA (obstructive sleep apnea) RESMED CPAP (E0601) machine for home use at pressure: 15cmw, Choice of mask (A7030 or A7034) w/full face cushion (A7031) x1/mo, nasal cushion (A7032) x2/mo, or nasal pillows (A7033) x 2/mo; Length of Need: 99 months; Frequency of use: Daily 1 Each 08/25/20 25 Active topiramate 50 mg tabletIndications :Schizoaffective disorder, unspecified type (HC) Take 1 Tablet (50 mg) by mouth once daily in the morning. 30 Tablet 11 09/22/20 25 Active topiramate 100 mg tabletIndications :Schizoaffective disorder, unspecified type (HC),Intellectual disability Take 1 Tablet (100 mg) by mouth at bedtime. 30 Tablet 09/22/20 Active levothyroxine (SYNTHROID) 137 mcg tabletIndications :Acquired hypothyroidism Take 1 Tablet (137 mcg) by mouth once daily. 30 Tablet 09/22/20 Active lamoTRIgine 100 mg tabletIndications :Schizophrenia, unspecified type (HC) Take 1 Tablet (100 mg) by mouth once daily. 30 Tablet 09/22/20 25 Active hydrOXYzine HCL (ATARAX) 25 mg tabletIndications :Emotional dysregulation,Anx iety Take 1 Tablet (25 mg) by mouth every 8 hours if needed for Anxiety. 90 Tablet 09/22/20 25 Active ARIPiprazole (ABILIFY) 15 mg tabletIndications :Schizophrenia, unspecified type (HC) Take 1 Tablet (15 mg) by mouth once daily. 30 Tablet 09/22/20 25 Active haloperidoL (HALDOL) 10 mg tabletIndications :Schizoaffective disorder, unspecified type (HC) Take 1 Tablet (10 mg) by mouth at bedtime. 30 Tablet 09/22/20 Active multivitamin (MVI) tabletIndications :Routine history and physical examination of adult Take 1 Tablet by mouth once daily. 30 Tablet 09/22/20 Active CPAPIndications:O SA (obstructive sleep apnea) RESMED CPAP (E0601) machine for home use at pressure: 15cmw, Choice of mask (A7030 or A7034) w/full face cushion (A7031) x1/mo, nasal cushion (A7032) x2/mo, or nasal pillows (A7033) x 2/mo; Length of Need: 99 months; Frequency of use: Daily 1 Each 02/25/20 Discontinu ed(Reorder (E-cancel not sent)) levothyroxine 137 mcg tabletIndications :Acquired hypothyroidism Take 1 Tablet (137 mcg) by mouth once daily. 90 Tablet 2 04/09/20 Discontinu ed(Reorder (E-cancel not sent)) Diaper,Brief, Adult,DisposableI ndications:Urinar y, incontinence, stress female For home use. 96 Each 1 04/16/20 25 Discontinu ed(*Med complete/R egimen complete/L evel of care change) topiramate 100 mg tabletIndications :Schizoaffective disorder, unspecified type (HC),Intellectual disability Take 1 Tablet (100 mg) by mouth at bedtime. 90 Tablet 1 05/05/20 25 025 Discontinu ed(Reorder (E-cancel not sent)) topiramate 50 mg tabletIndications :Schizoaffective disorder, unspecified type (HC) Take 1 Tablet (50 mg) by mouth once daily in the morning. 90 Tablet 1 05/05/20 25 025 Discontinu ed(Reorder (E-cancel not sent)) lamoTRIgine 100 mg tabletIndications :Schizophrenia, unspecified type (HC) Take 1 Tablet (100 mg) by mouth once daily. 90 Tablet 1 07/13/20 25 025 Discontinu ed(Reorder (E-cancel not sent)) ARIPiprazole (ABILIFY) 15 mg tabletIndications :Schizophrenia, unspecified type (HC) Take 1 Tablet (15 mg) by mouth once daily. 90 Tablet 07/13/20 25 025 Discontinu ed(Reorder (E-cancel not sent)) tirzepatide (weight loss) (Zepbound) 10 mg/0.5 mL penIndications:Mo rbid obesity (HC) Inject 10 mg subcutaneous once weekly. 3 mL 08/17/20 25 025 Discontinu ed(*Med complete/R egimen complete/L evel of care change) hydrOXYzine HCL (ATARAX) 25 mg tabletIndications :Emotional dysregulation,Anx iety Take 1 Tablet (25 mg) by mouth every 8 hours if needed for Anxiety. 270 Tablet 08/24/20 25 025 Discontinu ed(Reorder (E-cancel not sent)) haloperidoL (HALDOL) 10 mg tabletIndications :Schizoaffective disorder, unspecified type (HC) Take 1 Tablet (10 mg) by mouth at bedtime. 90 Tablet 2 08/24/20 025 Discontinu ed(Reorder (E-cancel not sent)) propranoloL 40 mg tabletIndications :Emotional dysregulation,Griselda izoaffective disorder, unspecified type (HC),Anxiety Take 1 Tablet (40 mg) by mouth two times daily. For 1 week, then take 1/2 tablet (20mg) by mouth twice daily for 1 week, then take 1/2 tablet (20mg) by mouth once daily for 1 week, then stop 25 Tablet 08/24/20 25 025 Discontinu ed(*Discon tinued by another clinician) haloperidoL (HALDOL) 10 mg tabletIndications :Schizoaffective disorder, unspecified type (HC) Take 1 Tablet (10 mg) by mouth at bedtime. 2 Tablet 09/22/20 25 025 Discontinu ed(Reorder (E-cancel not sent)) Hospital, Clinic, or Other Facility Administered Medication Ordered Dose Route Frequency Start Date End Date Status levonorgestrel (MIRENA) 21 mcg/24 hours (8 yrs) 52 mg intrauterine device (IUD) 1 DeviceIndications:Uses contraception 1 Device IU Q 8 YEARS 09/20/2024 Active betamethasone acet,sod phos 6 mg injection (CELESTONE SOLUSPAN)Indications:Poste rior tibial tendon dysfunction (PTTD) of right lower extremity,History of ankle surgery 6 mg IArtic ONE TIME 09/08/2025 09/08/2025 Ended Active Problems Problem Noted Date Diagnosed Date PCOS (polycystic ovarian syndrome) 09/22/2025 Second degree AV block, Mobitz type II Cardiac pacemaker in situ 07/16/2025 Viral upper respiratory tract infection 04/11/20 Community acquired pneumonia of right lower lobe of lung 04/11/2025 Hyperkalemia 04/11/2025 Exotropia, alternating 03/17/2025 S/P VSD repair 03/09/2025 SELMA (generalized anxiety disorder) 06/26/2023 Profound intellectual disability 06/26/2023 Personal history of (correct ed) congenital malformations of heart and circulatory system 07/28/2020 Personal history of pulmonary embolism 0 Morbid obesity 12/22/2016 Overview (02/27/2025): Body mass index (BMI) 40.0-44.9, adult Rule activated problem due to BMI 40-44 posted on 12/22 at 14:51 DOCUMENT SCANNER. 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 Provider to review Essential hypertension, benign 12/26/2007 Overview (02/27/2025): 03/2008- optimal on Lisinopril 10 mg daily Lack of expected normal physiological developmen t 12/26/2007 Overview (04/11/2025): Problem list name updated by automated process. Provider to review Otitis media 10/05/2002 Overview (02/27/2025): Problem list name updated by automated process. Provider to review Resolved Problems Problem Noted Date Diagnosed Date Resolved Date Psychosis, unspecified psychosis type 02/16/2025 02/16/2025 Type 2 diabetes mellitus wit hout complication, unspecified whether intermediate card tender insulin use 02/16/2025 02/16/2025 Overview (08/27/2025): Diagnosis Code replaced due to regulatory update Encounters Date Type Department Care Team Description 09/22/2025 2:05 PM DOCUMENT SCANNER Office Visit [facility] [address] [place] [address] VotelSam MD Physical (34 year old female, forms) 09/21/2025 8:23 AM DOCUMENT SCANNER - 09/21/2025 11:59 PM DOCUMENT SCANNER Hospital Encounter [facility] [address] [place] [address] Erma Lucia PA Iverson, Ryan, PT 09/21/2025 Travel 09/20/2025 Telephone [facility] [address] [facility] [place] [address] Erma Lucia PA Form 09/16/2025 9:30 AM CDT - 09/16/2025 11:59 PM CDT Hospital Encounter [address] [address] Erma Lucia PA Iverson, Ryan, PT 09/16/2025 Travel 09/08/2025 8:00 AM CDT Office Visit [facility] [address] [facility] [address] [place] [address] Brock Sky MD Follow Up (Posterior tibial tendon dysfunction (PTTD) of left lower extremity) 09/08/2025 Travel 08/26/2025 11:45 AM CDT - 08/26/2025 11:59 PM CDT Hospital Encounter [address] [address] Erma Lucia PA Iverson, Ryan, PT 08/25/2025 1:30 PM CDT Office Visit [facility] [address] [place] [address] Naresh Person MD Sleep Follow-up 08/25/2025 Travel 08/24/2025 3:50 PM CDT Ancillary Procedure [facility] [address] [place] [address] 08/24/2025 3:00 PM CDT Office Visit [facility] [address] [place] [address] Shani Lucia NP Medication Management; Follow Up (Things are going good) 08/23/2025 10:50 AM CDT - 08/23/2025 11:59 PM CDT Hospital Encounter [address] [address] Erma Lucia PA Iverson, Ryan, PT 08/23/2025 Travel 08/19/2025 1:24 PM CDT - 08/19/2025 11:59 PM CDT Hospital Encounter [address] [address] Erma Lucia PA Iverson, Ryan, PT 08/19/2025 Travel 08/17/2025 11:23 AM CDT - 08/17/2025 11:59 PM CDT Hospital Encounter [address] [address] Erma Lucia PA Iverson, Ryan, PT 08/17/2025 9:30 AM CDT Office Visit [facility] [address] [place] [address] Erma Lucia PA Medication Management (Right Foot Concerns with Ankle. Not able to put much weight onto it. 2006 had a procedure done. ) 08/17/2025 Telephone [facility] [address] [place] [address] Brock Sky MD Referral 08/17/2025 Travel 08/12/2025 12:41 PM CDT - 08/12/2025 11:59 PM CDT Hospital Encounter [address] [address] Erma Lucia PA Iverson, Ryan, PT 08/12/2025 Travel 08/12/2025 Patient Outreach [facility] [address] [place] [address] Leandra Jung PharmD Pharmacist Medication Management (Propranolol follow-up) 08/10/2025 10:53 AM CDT - 08/10/2025 11:59 PM CDT Hospital Encounter [address] [address] Erma Lucia PA Iverson, Ryan, PT 08/10/2025 Travel 08/09/2025 Telephone [facility] [address] [place] [address] Erma Lucia PA 08/03/2025 10:30 AM CDT Pharmacist Medication Management [facility] [address] [place] [address] Leandra Jung PharmD Pharmacist Medication Management (CMR initial - provider referral - in-clinic visit) 08/03/2025 Travel 07/21/2025 2:48 PM CDT - 07/21/2025 11:59 PM CDT Hospital Encounter [facility] [address] [place] [address] Erma Lucia PA Iverson, Ryan, PT Second degree AV block, Mobitz type II; Generalized weakness 07/21/2025 Travel 07/21/2025 Patient Outreach [facility] Care Management - Advanced Care Team [address] [place] [address] Latisha Calderón Medication Management (COMPREHENSIVE MEDICATION REVIEW - PROVIDER REFERRAL - COVERED) 07/16/2025 9:30 AM CDT Office Visit [facility] [address] [place] [address] Erma Lucia PA Follow Up (Pacemaker follow up) 07/16/2025 Travel 07/13/2025 9:30 AM CDT Office Visit [facility] [address] [place] [address] Shani Lucia NP Medication Management (Things are going better/) 07/13/2025 Telephone [facility] [address] [place] [address] Shani Lucia NP Medication Management 07/13/2025 Travel from Last 3 Months Immunizations Immunization Administration Dates Next Due DTP 04/29/1995, 1,1990,1989,06/02/1990 Hepatitis B, Unspecified 02/08/2000,01/17,07/11/1999,1998,03/30/1999,03/30/1999 INFLUENZA, IIV3 PF (AGE >= 6 MO) 09/22/2025 Influenza RIV4 (Age 18+ Year s) PRESERV FREE 10/05/2021 Influenza Virus, Unspecified 08/02/2016, 09/01/2015,09/10/2013,2011,09/10/2011 Influenza, High-dose Inactivated 08/18/2016 Influenza, IIV3 (Age >=3 years) 08/14/20 12,08/02/2010,11/03/2007,2004,09/13/2004,09/11/2001 Influenza, IIV4 09/06/2022,,11/26/2018,2016,08/02/2016,08/24/2014 Influenza, IIV4 (=>6mos) MDV 08/14/2019,08/18/20 15 Influenza, split (incl. jefferson fied surface antigen) 08/18/2016 Influenza,CCIIV4 PRESERV FREE 08/15/2020 MMR 03/30/1999,04/06/1990 Oral Polio Vaccine 04/29/1995 Polio Virus, Unspecified 04/21/1991,1990,0 08/14/1990 Td (Age >=7 Years) 03/24/2003 Td, Preservative Free (age > = 7 Years) 03/24/2003 Tdap 05/26/2021,02/27/2011 Tuberculin Skin Test, Unspecified 2008,02/25/2008,03/07/2007,2005,03/21/2005,03/22/2004,03/24/2003,0 03/25/2002,03/26/2001 Social History Tobacco Use Types Packs/Day Years Used Date Smoking Tobacco: Never Passive Smoke Exposure: Never Smokeless Tobacco: Never Tobacco Cessation:Counseling Given: Yes Alcohol Use Standard Drinks/Week Comments Never 0 (1 standard drink = 0.6 oz pur e alcohol) PHQ-2 Answer Date Recorded PHQ-2 TOTAL SCORE 1 08/24/2025 Social Connections Answer Date Recorded Do you often feel lonely or isolated from those around you? 0 04/11/2025 Alcohol Use Answer Date Recorded How often do you have a drink containing alcohol ? 0 09/22/2025 Average Number of Drinks Not on file 025 Frequency of Binge Drinking Not on file 03/2025 Financial Resource Strain Answer Date R ecorded Difficulty of Paying Living Expenses 3 04/11/2025 Difficulty of Paying Living Expenses Not on file 04/11/2025 Food Insecurity Answer Date Recorded Do you worry your food will run out before you are able to buy more? 1 04/11/2025 Transportation Needs Answer Date Record ed Does lack of transportation keep you from medica l appointments? 1 04/11/2025 Does lack of transportation keep you from work, meetings or getting things that you need? 1 04/11/2025 Housing Stability Answer Date Recorded What is your housing situation today? 1 04/11/2025 Interpersonal Safety Answer Date Record ed Are you being hit, kicked, p ushed or yelled at (see row info)? No 04/11/2025 Interpersonal Safety Abuse 12 - 18 Not on file 04/11/2025 Interpersonal Safety Ambulatory Vulnerability No t on file 04/11/2025 Utilities Answer Date Recorded Do you have trouble paying f or utilities (for example, heat, electricity, water, phone)? 1 04/11/2025 Comments No Sex and Gender Information Value Date Recorded Sex Assigned at Not on file Legal Sex Female 5:26 AM DOCUMENT SCANNER Gender Identity Not on file Sexual Orientation Not on file Obstetrics History Last Filed Vital Signs Vital Sign Reading Time Taken Comments Blood Pressure 148/74 09/22/2025 2:13 PM DOCUMENT SCANNER Pulse 75 09/22/2025 2:13 PM DOCUMENT SCANNER Temperature 36.2 C (97.2 F) 04/13/2025 7:45 AM CDT Respiratory Rate 22 04/13/2025 7:45 AM CDT Oxygen Saturation 99% 09/22/2025 2:13 PM DOCUMENT SCANNER Inhaled Oxygen Concentration - - Weight 120.2 kg (264 lb 14.4 oz) 09/22/2025 2:13 PM DOCUMENT SCANNER Height 149.9 cm (4' 11) 09/22/2025 2:13 PM DOCUMENT SCANNER Body Mass Index 53.5 09/22/2025 2:13 PM DOCUMENT SCANNER Plan of Treatment Upcoming Encounters Date Type Department Care Team (Late st Contact Info) Description 09/23/2025 8:45 AM DOCUMENT SCANNER Appointment [address] [address] Delano Chiang, PT [address] [place] [address] 09/28/2025 8:45 AM DOCUMENT SCANNER Appointment [address] [address] Delano Chiang, PT [address] [facility] [place] [address] 10/05/2025 8:45 AM DOCUMENT SCANNER Appointment [facility] [address] [place] [address] Delano Chiang, PT [address] [place] [address] 2025 8:15 AM DOCUMENT SCANNER Office Visit [facility] [address] [place] [address] Belén Mercado MD [address] [place] [address] 10/07/2025 9:30 AM DOCUMENT SCANNER Appointment [facility] [address] [facility] [place] [address] Delano Chiang, PT [facility] [place] [address] 01/27/2026 10:00 AM CDT Office Visit [facility] [address] [place] [address] Naresh Person MD [address] [place] [address] Health Maintenance Due Date Last Done Comments HIV for age 15-65 2004 Hepatitis C screening for ag e 18-79 2007 Pneumococcal series for age 6-49 (1 of 2 - PCV) 2008 HPV series for age 9-45 (1 - 3-dose SCDM series) 2016 Depression screening for age 12+ 08/25/2026 08/25/2025, 08/24/2025, 07/16/2025, Additional history exists BMI (ht and wt on same day) for age 18+ 09/22/2026 09/22/2025, 08/25/2025, 06/03/2025, Additional history exists Pap test for age 21-65 11/20/2026 11/20/2023, 2023 Tetanus booster 05/26/2031 05/26/2021, 02/16, 03/24/2003, Additional history exists RSV vaccine for adults or (1 - 1-dose 75+ series) 2064 Hepatitis B series for 19+ Completed 02/07, 02/07/2000, 07/11/1999, Additional history exists Influenza Vaccine Completed 09/22/2025, , 10/19/2021, Additional history exists Procedures Procedure Name Priority Date/Time Associated Diagnosis Comments CT ANKLE RIGHT WO Routine 08/24/2025 4:1 9 PM CDT History of ankle surgery from 2006 Posterior tibial tendon dysfunction (PTTD) of right lower extremity Pes planus of right foot URINALYSIS MICROSCOPIC Routine 07/16/2025 10:45 AM CDT Dysuria Urgency of urination URINALYSIS MACROSCOPIC - [facility] ONLY POC DIP (QUEST) Routine 07/16/2025 10:45 AM CDT Dysuria Urgency of urination SUPERVISOR TELEPHONE INFORMATION THIN PREP PAP SCREEN IMAGED Routine 11/20/2023 12:00 PM DOCUMENT SCANNER from Last 3 Months or Most Recently Relevant to Health Maintenance Results * CT ANKLE RIGHT WO (08/24/2025 4:19 PM CDT) Anatomical Region Laterality Modality ANKLE R Computed Tomogra phy 08/25/2025 11:0 8 AM CDT Narrative 08/25/2025 11:08 AM CDT For Patients: As a result of the 21st Century Cures Act, medical imaging exams and procedure reports are released immediately into your electronic medical record. You may view this report before your referring provider. If you have questions, please contact your health care provider. Indication: Pes planus, history of surgery. Posterior tibial tendon dysfunction Technique: Routine noncontrast CT of the right ankle performed along with 3D reconstructions. Please note that all CT scans at this facility use dose modulation, iterative reconstruction, and/or weight-based dosing when appropriate to reduce radiation dose to as low as reasonably achievable. Comparison: X-rays 02/26/2025 Findings: Chronic healed fracture of the distal fibula, posterior malleolus and medial malleolus with near anatomic alignment. Tiny chronic ossicle adjacent to the anterior distal tip of the lateral malleolus measures 2 millimeters. No joint effusion at the tibiotalar joint. No osteochondral defect of the talar dome. Slight subchondral irregularity of the posterior tibial metaphysis. Fixation screw hardware within the lateral malleolus is intact as is the hardware within the distal tibia. Subtalar joint is maintained. Normal midfoot. Small posterior calcaneal spur without thickening of the Achilles tendon. Plantar fascia appears unremarkable. Impression: Healed trimalleolar fracture with intact hardware and near anatomic alignment with mild residual posterior distal tibial metaphyseal subchondral irregularity. No joint effusion, osteochondral defect or acute fracture. No significant arthrosis. Chronic mild posterior distal Achilles tendinosis. Calcaneal inclination angle appears normal. Please note that all CT scans at this facility use dose modulation, iterative reconstruction, and/or weight-based dosing when appropriate to reduce radiation dose to as low as reasonably achievable. Dictated by Rojas Cervantes MD @ 08/25/2025 11:08:53 AM (Electronically Signed) Procedure Note Rojas Cervantes MD - 08/25/2025 For Patients: As a result of the Century Cures Act, medical imagingexams and procedure reports are released immediately into your electronicmedical record. You may view this report before your referring provider.If you have questions, please contact your health care provider. Indication: Pes planus, history of surgery. Posterior tibial tendon dysfunction Technique: Routine noncontrast CT of the right ankle performed along with 3Dreconstructions. Please note that all CT scans at this facility use dose modulation,iterative reconstruction, and/or weight-based dosing when appropriate toreduce radiation dose to as low as reasonably achievable. Comparison: X-rays 02/26/2025 Findings: Chronic healed fracture of the distal fibula, posterior malleolus andmedial malleolus with near anatomic alignment. Tiny chronic ossicleadjacent to the anterior distal tip of the lateral malleolus measures 2millimeters. No joint effusion at the tibiotalar joint. No osteochondraldefect of the talar dome. Slight subchondral irregularity of the posteriortibial metaphysis. Fixation screw hardware within the lateral malleolus isintact as is the hardware within the distal tibia. Subtalar joint ismaintained. Normal midfoot. Small posterior calcaneal spur withoutthickening of the Achilles tendon. Plantar fascia appears unremarkable. Impression: Healed trimalleolar fracture with intact hardware and near anatomicalignment with mild residual posterior distal tibial metaphysealsubchondral irregularity. No joint effusion, osteochondral defect or acute fracture. No significantarthrosis. Chronic mild posterior distal Achilles tendinosis. Calcaneal inclination angle appears normal. Please note that all CT scans at this facility use dose modulation,iterative reconstruction, and/or weight-based dosing when appropriate toreduce radiation dose to as low as reasonably achievable. Dictated by Rojas Cervantes MD @ 08/25/2025 11:08:53 AM (Electronically Signed) Brock Sky MD CT Final Result * (ABNORMAL) POCT Urinalysis Dipstick Only [[id number]] (07/16/2025 10:45 AM CDT) Pathologist [facility] SPECIFIC GRAVITY 1.010 1.001 - 1.035 07/16/2025 11:00 AM CDT [facility] PROTEIN NEGATIVE NEGATIVE 07/16/2025 11:00 AM CDT [facility] GLUCOSE NEGATIVE NEGATIVE 07/16/2025 11:00 AM CDT [facility] KETONES NEGATIVE NEGATIVE 07/16/2025 11:00 AM CDT [facility] BILIRUBIN NEGATIVE NEGATIVE 07/16/2025 11:00 AM CDT [facility] OCCULT BLOOD NEGATIVE NEGATIVE 07/16/2025 11:00 AM CDT [facility] NITRITE NEGATIVE NEGATIVE 07/16/2025 11:00 AM CDT [facility] PH 6.5 5.0 - 8.0 07/16/2025 11:00 AM CDT [facility] LEUKOCYTE ESTERASE TRACE(A) NEGATIVE 07/16/2025 11:00 AM CDT [facility] Urine URINE SPECIMEN / Unknown Non-Blood / Unknown 07/16/2025 10:45 AM CDT 07/16/2025 10:53 AM CDT Erma Lucia JACIEL URINE Final Res [facility] [id number] [place] [address], [place] [phone] [facility] [address] [place] [address], [place] [phone] * URINALYSIS MICROSCOPIC [70080.1] - routine (07/16/2025 10:45 AM CDT) RBC 0-2 0-2, None Seen /HPF 07/16/2025 3:54 PM CDT [facility] WBC 3-5 0-2, 3-5, None Seen /HPF 07/16/2025 3:54 PM CDT [facility] BACTERIA None Seen None Seen, Rare, Few Bacteria/ HPF 07/16/2025 3:54 PM CDT [facility] EPITHELIAL CELLS None Seen None Seen, Few Epi/HPF 07/16/2025 3:54 PM CDT [facility] HYALINE CASTS 0-2 0-2, 3-5 /LPF 07/16/2025 3:54 PM CDT [facility] Urine URINE SPECIMEN / Unknown Non-Blood / Unknown 07/16/2025 10:45 AM CDT 07/16/2025 10:53 AM CDT Erma Clarita العليinder GRISSOM URINE Final Res [facility] [address] [place] [address], [place] * SUPERVISOR TELEPHONE INFORMATION THIN PREP PAP SCREEN IMAGED (11/20/2023 12:00 PM DOCUMENT SCANNER) Case Report Gynecologic Cytology Report Case: [id number] Authorizing Provider: Chanelle Bryant MD Collected: 11/20/2023 1200 Ordering Location: [facility] Received: 11/20/2023 1350 First Screen: Saranya Carmen Specimen: SUPERVISOR TELEPHONE INFORMATION ThinPrep Vial Screening, Cervical 11/26/2023 4:28 PM DOCUMENT SCANNER [facility] INTERPRETATION /RESULT NEGATIVE FOR INTRAEPITHELIAL LESION OR MALIGNANCY (NIL) (none) 11/26/2023 4:28 PM DOCUMENT SCANNER [facility] at 1628 DOCUMENT SCANNER SPECIMEN ADEQUACY Satisfactory for evaluation Endocervical component present 11/26/2023 4:28 PM DOCUMENT SCANNER [facility] Last Pap Result First Pap/Unknown 11/26/2023 4:28 PM DOCUMENT SCANNER [facility] Menstrual Status Hormonally Suppressed 11/26/2023 4:28 PM [facility] Comment:Gabby IUD Additional Information 11/26/2023 4:28 PM [facility] Comment: Interpreted at [facility] - [address], [place] [address] Automated Review Failed 11/26/2023 4:28 PM [facility] Comment:Processing failed, m anual screening required. ThinPrep Imaging System, [employer] Note The pap test is a screening technique, not a diagnostic procedure. It is used primarily to screen for squamous cancers and precursor lesions. Published studies have shown that it is subject to both false negative and false positive results. The pap test should not be used as the sole means to diagnose or exclude pre-malignant and malignant lesions. 11/26/2023 4:28 PM [facility] Other (Cervical) 11/20/2023 12:00 PM DOCUMENT SCANNER 11/20/2023 1:50 PM DOCUMENT SCANNER us Chanelle Bryant MD PATHOLOGY/CYTOLOGY Final Result [facility] 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 [address] [place] [address] Psychiatry 03/08/25 Leandra Jung PharmD [address] [facility] [place] [address] Pharmacist Medication Management Pharmacology 08/03/25 08/03/28
--- OUTSIDE RECORDS SUMMARY | 2025-09-23 00:16 | XMS_ITS | Encounter Summary ---
Author Organization [place] Address [address] [place] [address] Care Team Providers Care College Counselor Name Role Phone Neville Mcintosh MD Primary Care Provider [phone] Brock Norris MD Unavailable [phone] Andreina Gomes MD Unavailable [phone] Allan Romo MD Unavailable Unavailable Lele Buckley OD Unavailable Frw, None [facility] Leida Christianson MD Unavailable Erma Lucia Primary Care Provider [phone] Reason for Visit * Reason Onset Date Comments Refill Request 03/25/2006 Phos-Flur Oral R inse Encounter Details Date Type Department Care Team (Late st Contact Info) Description 03/25/2006 Refill [facility] [place] [facility] [address] [place] [address] Neville Mcintosh MD [facility] [address] [place], [place] [id number] Refill Request (Phos-Flur Oral Rinse) Social History Tobacco Use Types Packs/Day Years Used Date Smoking Tobacco: Never Comments:NO SECOND HAND SMOK E Alcohol Use Standard Drinks/Week Comments Not Asked 0 (1 standard drink = 0.6 oz pur e alcohol) Comments No Sex and Gender Information Value Date Recorded Sex Assigned at Not on file 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 Gender Identity Not on file Sexual Orientation [...] st Contact Info) Description 11/16/2025 Ancillary Procedure [facility] [address] [facility] [address] [place] [phone] Vinicio Arroyo MD [address] [facility] [address] [place] [address] documented as of this encounter Visit Diagnoses Not on filedocumented in this encounter Care Teams College Counselor Relationship Specialty Start Date End Date Neville Mcintosh MD [address] [place] [address] PCP - General 12/11/00 11/01/13 Brock Norris MD [facility] [place] [address] [place] [address] PCP - ENT 12/11/00 02/03/24 Andreina Gomes MD [facility] [place] [address] [place] [address] PCP - Urology 06/12/06 02/03/24 Allan Romo MD [facility] [address] [place] [address] PCP - Orthopaedics 12/23/07 06/26/23 Lele Buckley OD [facility] [place] [address] [place] [address] PCP - Ophthalmology 08/25/09 02/03/24 Frw, None PCP - General Family Practice 11/02/13 07/18/[address] [address] PCP - General 06/26/23 06/17/25 Erma Lucia PA [facility] [place] [address] PCP - General Family Practice 06/22/25 Leida Christianson MD [address] [place] [address] Assigned OBGYN Provider 01/31/24 Dr. Naresh Herrera [address] [id number] Psychiatrist 11/18/14 02/01/24 Amy Magallanes Psychiatrist 01/16/24 documented as of this encounter
--- OUTSIDE RECORDS SUMMARY | 2025-09-23 00:16 | XMS_ITS | Encounter Summary ---
Author Organization [place] Address [address] [place] [address] Care Team Providers Care Manager Critical Care Unit Name Role Phone Neville Mcintosh MD Primary Care Provider [phone] Brock Norris MD Unavailable [phone] Andreina Gomes MD Unavailable [phone] Allan Romo MD Unavailable Unavailable Lele Buckley OD Unavailable [phone] Frw, None Primary Care Provider [facility] re Provider Leida Christianson MD Unavailable [phone] Erma Lucia Primary Care Provider [phone] Encounter Details Date Type Department Care Team (Late st Contact Info) Description 09/26/2007 [facility] [place] Inpatient Dept [address] [place] [phone] Frw, Inpatient Provider Social History Tobacco Use Types Packs/Day Years Used Date Smoking Tobacco: Never Smokeless Tobacco: Never Comments:NO SECOND HAND SMOK E Alcohol Use Standard Drinks/Week Comments No 0 (1 standard drink = 0.6 oz pur e alcohol) Comments No Sex and Gender Information Value Date Recorded Sex Assigned at Not on file 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 Allan Romo M.D. CARLITOS/dario cc: EMY DIRECTOR * Allan Romo MD - 10/08/2007 3:59 [...] the obliquitative fracture obtaining anatomic contact and baptism. Good purchase was obtained. This being achieved, the medial ankle was then opened. After evacuation of the hematoma the area was irrigated, the talar dome appeared to be intact. After positioning of the medial fragment a pin was placed. Following this a measured screw 40 cancellous was placed obtaining good purchase. There appeared with C-arm to very good reduction and baptism of anatomy. After further irrigation of the incisional areas closure was accomplished with #1 Vicryl, 2-0 Vicryl, and nylon. A sterile dressing was applied, followed by a cast splint. The patient was then released from the tourniquet. The patient was then forwarded to the recovery room in satisfactory condition having tolerated her surgery well. Keke Jimenez cc: EMY DIRECTOR documented in this encounter Plan of Treatment Upcoming Encounters Date Type Department Care Team (Late st Contact Info) Description 11/16/2025 Ancillary Procedure [facility] [address] [facility] [address] [place] [phone] Vinicio Arroyo MD [address] [facility] [address] [place] [address] documented as of this encounter Visit Diagnoses Not on filedocumented in this encounter Care Teams Manager Critical Care Unit Relationship Specialty Start Date End Date Neville Mcintosh MD [address] [place] [address] PCP - General 12/11/00 11/01/13 Borck Norris MD [facility] [place] [address] [place] [address] PCP - ENT 12/11/00 02/03/24 Andreina Gomes MD [facility] [place] [address] [place] [address] PCP - Urology 06/12/06 02/03/24 Allan Romo MD XXX RETIRED XXX [address] [place] [address] PCP - Orthopaedics 12/23/07 06/26/23 Lele Buckley OD [facility] [place] [address] [place] [address] PCP - Ophthalmology 08/25/09 02/03/24 Frw, None PCP - General Family Practice 11/02/13 07/18/[address] [address] PCP - General 06/26/23 06/17/25 Erma Lucia PA [facility] [place] [address] PCP - General Family Practice 06/22/25 Leida Christianson MD [address] [place] [address] Assigned OBGYN Provider 01/31/24 Dr. Naresh Herrera [address] [id number] Psychiatrist 1/1/15 3/16/24 Amy Magallanes Psychiatrist 01/16/24 documented as of this encounter
--- OUTSIDE RECORDS SUMMARY | 2025-09-23 00:17 | XMS_ITS | Encounter Summary ---
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 Never 09/16/2025 1:33 PM Jose Gayle Q2: How many drinks containing alcohol do you have on a typical day when you are drinking? Patient does not drink 09/16/2025 1:33 PM Jose Gayle Q3: How often do you have six or more drinks on one occasion? Never 09/16/2025 1:33 PM Jose Gayle documented as of this encounter Plan of Treatment Upcoming Encounters Date Type Department Care Team (Late st Contact Info) Description 11/16/2025 Ancillary Procedure [facility] [address] [facility] [address] [place] [phone] Vinicio Arroyo MD [address] [facility] [address] [place] [id number] documented as of this encounter Visit Diagnoses Not on filedocumented in this encounter Care Teams Regulatory Product Manager Relationship Specialty Start Date End Date [place] [address] PCP - General Family Practice 06/22/25 Amy Magallanes Psychiatrist 01/16/24 documented as of this encounter
--- OUTSIDE RECORDS SUMMARY | 2025-09-23 00:17 | XMS_ITS | Clinical Summary ---
Author Organization [facility] Address [address] [place] [address] Care Team Providers Care Anodiser Name Role Phone Erma Lucia Primary Care Provider [phone] Allergies No known active allergies Medications levothyroxine (SYNTHROID/LEVO THROID) 137 MCG tablet Take 137 mcg by mouth daily before breakfast 06/25/20 23 Active topiramate (TOPAMAX) 100 MG tabletIndicatio ns:Aggressive behavior Take 1 tablet (100 mg) by mouth every evening 7 tablet 02/03/20 24 Active topiramate (TOPAMAX) 50 MG tabletIndicatio ns:Aggressive behavior Take 1 tablet (50 mg) by mouth every morning 7 tablet 02/03/20 24 Active hydrOXYzine HCl (ATARAX) 25 MG tablet Take 25 mg by mouth 3 times daily. Takes at 0800, 1300, and 2000 Active propranolol (INDERAL) 60 MG tablet Take 60 mg by mouth 3 times daily. Takes at 0800, 1300, and 2000. Active amoxicillin (AMOXIL) 500 MG tablet Take 2,000 mg by mouth as needed (prior to dental procedure). Active haloperidol (HALDOL) 10 MG tablet Take 10 mg by mouth every evening. Active tirzepatide-sheng ght management (ZEPBOUND) 5 MG/0.5ML vial Inject 5 mg subcutaneously once a week. Active ARIPiprazole (ABILIFY) 15 MG tabletIndicatio ns:SELMA (generalized anxiety disorder),Schiz ophrenia, unspecified type (H) Take 1 tablet (15 mg) by mouth daily. 06/17/20 25 Active lamoTRIgine (LAMICTAL) 100 MG tabletIndicatio ns:Schizophreni a, unspecified type (H) Take 1 tablet (100 mg) by mouth every morning. 06/17/20 25 Active diphenhydrAMINE (BENADRYL) 25 MG tabletIndicatio ns:Superficial incisional infection of surgical site,Cardiac pacemaker in situ,2nd degree AV block Take 1 tablet (25 mg) by mouth every 6 hours as needed (itching). 06/29/20 25 Active Active Problems Problem Noted Date Diagnosed Date Heart block 06/10/2025 Bradycardia 06/08/2025 2nd degree AV block 06/08/2025 Moderate intellectual disability 02/03/2024 Impulse control disorder in adult 02/03/2024 Profound intellectual disability 06/26/2023 SELMA (generalized anxiety disorder) 06/26/2023 Psychosis, unspecified psychosis type 06/26/2023 Hypothyroidism 01/06/2008 Overview (08/19/2015): TSH 5.99 01/05/2008 Started on 25 mcg of Synthroid 04/12/2009- increased to 50 mcg Problem list name updated by automated process. Provider to review Lack of expected normal physiological developmen t 12/26/2007 Overview (08/19/2015): Problem list name updated by automated process. Provider to review Essential hypertension, benign 12/26/2007 Overview (04/13/2008): 03/2008- optimal on Lisinopril 10 mg daily Other chronic otitis externa 10/05/2002 Impacted cerumen 10/05/2002 Otitis media 10/05/2002 Overview (08/18/2015): Problem list name updated by automated process. Provider to review Resolved Problems Problem Noted Date Diagnosed Date Resolved Date Intellectual delay 02/03/2024 Overview (02/03/2024): per history Encounters Date Type Department Care Team Description 09/16/2025 1:20 PM CDT Office Visit [facility] [place] [address] [place] [address] Connie Posada PA-C Cardiac pacemaker in situ (Primary Dx) 09/16/2025 Travel 08/11/2025 11:00 AM CDT Ancillary Procedure [facility] [address] [place] [phone] Ricci Perez MD 2nd degree AV block (Primary Dx); Cardiac pacemaker in situ 08/11/2025 Travel 07/05/2025 1:00 PM CDT Ancillary Procedure [facility] [address] [place] [phone] Ricci Perez MD Superficial incisional infection of surgical site; Cardiac pacemaker in situ; 2nd degree AV block 07/05/2025 Travel from Last 3 Months Immunizations Immunization Administration Dates Next Due Flu, Unspecified 09/01/2015,09/10/2013, 1 HepB 02/07/2000,07/11/1999,03/30/1999 HepB, Unspecified 02/08/2000,07/11/1999,03/30/19 99 Historical DTP/aP 04/29/1995, 1,1990,1989,06/02/1990 Influenza (High Dose) Trival ent,PF (Fluzone) 08/18/2016 Influenza (IIV3) PF 08/14/2012, 0,11/03/2007,2004,09/13/2004,09/11/2001 Influenza Vaccine 18-64 (Flublok) 10/05/2021 Influenza Vaccine >6 months,quad, PF ,10/19/2021,11/26/2018,2016,08/02/2016,08/24/2014 Influenza Vaccine, 6+MO IM (QUADRIVALENT W/PRESERVATIVES) 08/14/2019,08/18/2015 Influenza,INJ,MDCK,PF,Quad >6mo(Flucelvax) 08/15/2020 MMR (MMRII) 03/30/1999,04/06/1990 Mantoux Tuberculin Skin Test 02/22/2009, 02/25/2008,03/07/2007,2005,03/21/2005,03/22/2004,03/24/2003,0 [...] in an abandoned building, in an overnight long term, or couch-surfing.) Yes 06/08/2025 Are you worried [...] on file Legal Sex Female 3:24 AM ZINC ETCHER Gender Identity Not on file Sexual Orientation Not on file Last Filed Vital Signs Vital Sign Reading Time Taken Comments Blood Pressure 128/83 09/16/2025 1:18 PM CDT Pulse 79 09/16/2025 1:18 PM CDT Temperature 36.9 C (98.4 F) 06/17/2025 7:40 AM CDT Respiratory Rate 18 06/17/2025 7:40 AM CDT Oxygen Saturation 98% 09/16/2025 1:18 PM CDT Inhaled Oxygen Concentration - - Weight 119.8 kg (264 lb 3.2 oz) 09/16/2025 1:18 PM CDT Height 142.2 cm (4' 8) 09/16/2025 1:18 PM CDT Body Mass Index 59.23 09/16/2025 1:18 PM CDT Plan of Treatment Upcoming Encounters Date Type Department Care Team (Late st Contact Info) Description 11/16/2025 Ancillary Procedure [facility] [address] [place] [phone] Vinicio Arroyo MD [address] [place] [id number] Health Maintenance Due Date Last Done Comments ANNUAL REVIEW OF HM ORDERS 1989 DIABETIC FOOT EXAM 1989 MICROALBUMIN 1989 HIV SCREENING 2004 HEPATITIS C SCREENING 2007 A1C 04/04/2008 01/05/2008 PNEUMOCOCCAL VACCINE: PEDIATRICS (0 to 5 YEARS) AND AT-RISK PATIENTS (6 to 49 YEARS) (1 of 2 - PCV) 2008 LIPID 01/05/2009 01/05/2008 EYE EXAM 08/23/2010 08/23/2009, 08/05/2007 YEARLY PREVENTIVE VISIT 03/11/2020 03/11/20 19, 03/07/2018, 02/21/2010, Additional history exists COVID-19 VACCINE (1 - season) 2025 INFLUENZA VACCINE (#1) 2025 , 10/19/2021, 10/05/2021, Additional history exists TSH W/FREE T4 REFLEX 06/08/2026 06/08/2025, 06/08/2025, 08/17/2009, Additional history exists BMP 06/13/2026 06/13/2025, 05/19, 06/09/2025, Additional history exists PAP 11/20/2026 11/20/2023 ADVANCE CARE PLANNING 06/27/2028 06/27/2023 DTAP/TDAP/TD VACCINE (8 - Td or Tdap) 05/26/2031 05/26/2021, 02/27/2011, 03/24/2003, Additional history exists ZOSTER VACCINE (1 of 2) 2039 HEPATITIS B VACCINE Completed 02/08/2000, 02/07/2000, 07/11/1999, Additional history exists PHQ-2 (once per calendar year) Completed 09/16/2025 HPV VACCINE (No Doses Required) Completed MENINGITIS VACCINE Aged Out No longer eligible based on patient's age to complete this topic Medical Devices Implanted Type Area Card Boxer Device Identifier Shelf Expiration Date Model / Serial / Lot Imp Lead Pacing Bipolar Capsurefix Novus 52cm 5076-52 - [id number] Implanted:Qty: 1 on 06/11/2025 at [facility] [employer] 03/11/2027 5076-52 / [id number] / [id number] Lead Pacemaker Selectsecure 69cm [id number] - [id number] Implanted:Qty: 1 on 06/11/2025 at [facility] [employer] 04/22/2027 [id number] / [id number] / [id number] Pacemaker Lilia Mri Xt Dr - [id number] Implanted:Qty: 1 on 06/11/2025 at [facility] Pacemaker [employer] 10/31/2026 [id number] / [id number] / [id number] Procedures Procedure Name Priority Date/Time Associated Diagnosis Comments PM DEVICE PROGRAMMING EVAL, DUAL LEAD PACER Routine 08/11/2025 11:09 AM CDT Cardiac pacemaker in situ COURTESY DEVICE CHECK Routine 07/05/2025 2:31 PM CDT Superficial incisional infection of surgical site Cardiac pacemaker in situ 2nd degree AV block BASIC METABOLIC PANEL (LIMITED OCCURRENCES) Routine 06/13/2025 6:02 AM CDT TSH WITH FREE T4 REFLEX STAT 06/08/2025 12:20 PM CDT CL AFF A.M.A. LIPID PANEL Routine 01/05/2008 8:35 AM ZINC ETCHER Benign Hypertension Obesity Nos ZZHCL GLYCATED HEMOGLOBIN Routine 01/05/2008 8:35 AM ZINC ETCHER Obesity Nos Benign Hypertension from Last 3 Months or Most Recently Relevant to Health Maintenance Results * PM DEVICE PROGRAMMING EVAL, DUAL LEAD PACER (08/11/2025 11:09 AM CDT) Only the most recent of2 resultswithin the time period is included. Date Time Interrogation Session [id number] [employer] Implantable Pulse Generator Card Boxer Medtronic [employer] Implantable Pulse Generator Model [id number] Lilia XT MRI [employer] Implantable Pulse Generator Serial Number [id number] [employer] Type Interrogation Session In Clinic [employer] Clinic Name [facility] [employer] Implantable Pulse Generator Type Pacemaker [employer] Implantable Pulse Generator Implant Date 20250611 [employer] Implantable Lead Card Boxer Medtronic [employer] Implantable Lead Model 3830 SelectSecure MRI SureScan [employer] Implantable Lead Serial Number [id number] [employer] Implantable Lead Implant Date 20250611 [employer] Implantable Lead Polarity Type Bipolar Lead [employer] Implantable Lead Location Detail 1 LBB [employer] Implantable Lead Location Right Ventricle [employer] Implantable Lead Connection Status Connected [employer] Implantable Lead Card Boxer Medtronic [employer] Implantable Lead Model 5076 CapSureFix Novus MRI SureScan [employer] Implantable Lead Serial Number [id number] [employer] Implantable Lead Implant Date 20250611 [employer] [...] Setting PAV Delay Low 180 ms [employer] Rj Setting AT Mode Switch Rate 171 {beats}/ [...] ms [employer] Battery Date Time of Measurements [id number] [employer] Battery Status OK [employer] Battery CAFETERIA CLERK Trigger 2.625 [employer] Battery Remaining Longevity 156 mo [employer] Battery Voltage 3.20 V [employer] Rj Statistic Date Time Start [id number] [employer] Rj Statistic Date Time End 70104512874515 [employer] Rj Statistic RA Percent Paced 1.58 % [employer] Rj Statistic RV Percent Paced 99.96 % [employer] Rj Statistic AP LEAD ORACLE DEVELOPER Percent 1.58 % [employer] Rj Statistic LEAD ORACLE DEVELOPER Percent 98.38 % [employer] Rj Statistic AP VS Percent 0 % [employer] Rj Statistic VS Percent 0.03 % [employer] Atrial Tachy Statistic Date Time Start [id number] [employer] Atrial Tachy Statistic Date Time End 81228457928094 [employer] Atrial Tachy Statistic AT/AF [place] Percent 0 % [employer] Therapy Statistic Recent Date Time Start [id number] [employer] Therapy Statistic Recent Date Time End 15684088418839 [employer] Therapy Statistic Total Date Time Start 44266792648413 [employer] Therapy Statistic Total Date Time End 51133904139731 [employer] Episode Statistic Recent Count 0 [employer] [...] [employer] Episode Statistic Recent Date Time Start [id number] [employer] Episode Statistic Recent Date Time End 47410990042409 [employer] Episode Statistic Recent Date Time Start 82351721371739 [employer] Episode Statistic Recent Date Time End 88027856556065 [employer] Episode Statistic Recent Date Time Start 83550905384627 [employer] Episode Statistic Recent Date Time End [id number] [employer] Episode Statistic Recent Date Time Start 27857533113765 [employer] Episode Statistic Recent Date Time End 80653560199490 [employer] Episode Statistic Recent Date Time Start 10685698952951 [employer] Episode Statistic Recent Date Time End 23559903541675 [employer] Episode Statistic Total Count 3 [employer] [...] [employer] Episode Statistic Total Date Time Start 75667382807282 [employer] Episode Statistic Total Date Time End 43161073083027 [employer] Episode Statistic Total Date Time Start 24561605339452 [employer] Episode Statistic Total Date Time End 97365958482280 [employer] Episode Statistic Total Date Time Start 79263868877305 [employer] Episode Statistic Total Date Time End [id number] [employer] Episode Statistic Total Date Time Start [id number] [employer] Episode Statistic Total Date Time End 47590899400278 [employer] Episode Statistic Total Date Time Start 14408171664054 [employer] Episode Statistic Total Date Time End 25947079767438 [employer] Anatomical Region Laterality Modality Other 08/11/2025 10:5 8 AM CDT Narrative 08/11/2025 4:36 PM CDT Medtronic [place] (D) Pacemaker Device Check Patient seen in clinic for device evaluation and iterative programming. Mode: DDD 60-140 Underlying Rhythm: SR 70s (PPM implanted for high degree AVB) Pacing/Histogram Data Since: 07/05/2025 AP: 2 % LEAD ORACLE DEVELOPER: 100 % (RV lead position = LB region) Heart Rate: excellent variability Sensing: WNL Pacing Threshold: WNL Impedance: WNL Battery Status: 12.9 yrs estimated longevity Device Site: [facility], healed well, no signs of infection [...] CV CARDIAC SERVICES ORDERABLES F inal Result * Basic Metabolic Panel (Limited Occurrences) (06/13/2025 6:02 AM T) [facility] Signature Sodium 141 135 - 145 mmol/L 06/13/2025 6:32 AM T LABORATORY Potassium 4.1 3.4 - 5.3 mmol/L 06/13/2025 6:32 AM [facility] Chloride 103 98 - 107 mmol/L 06/13/2025 6:32 AM [facility] Carbon Dioxide (CO2) 25 22 - 29 mmol/L 06/13/2025 6:32 AM [facility] Anion Gap 13 7 - 15 mmol/L 06/13/2025 6:32 AM [facility] Urea Nitrogen 16.2 6.0 - 20.0 mg/dL 06/13/2025 6:32 AM [facility] Creatinine 0.90 0.51 - 0.95 mg/dL 06/13/2025 6:32 AM [facility] GFR Estimate 85 >60 mL/min/1.7 3m2 06/13/2025 6:32 AM [facility] Comment:eGFR calculated usin g 2020 CKD-EPI equation. Calcium 9.4 8.8 - 10.4 mg/dL 06/13/2025 6:32 AM T LABORATORY Glucose 99 70 - 99 mg/dL 06/13/2025 6:32 AM [facility] Blood STRUCTURE OF RIGHT HAND / Unknown Venipuncture / Unknown 06/13/2025 6:02 AM CDT 06/13/2025 6:09 AM CDT us Talon Vinson DO LAB - BLOOD ORDERABLES Final Result LABORATORY [facility] [address] 1[address] floor, [address] [place] [address], [facility] [phone] * (ABNORMAL) TSH with free T4 reflex (06/08/2025 12:20 PM CDT) TSH 7.85(H) 0.30 - 4.20 uIU/mL 06/08/2025 1:03 PM CDT LABORATORY Blood BLOOD SPECIMEN / Unknown Venipuncture / Unknown 06/08/2025 12:20 PM CDT 06/08/2025 12:32 PM CDT us Bj Berrios DO LAB - BLOOD ORDERABLES F inal Result LABORATORY [facility] [address] Lab (1st floor, no room number) [place] [address], [facility] * HEMOGLOBIN A1C (01/05/2008 8:35 AM ZINC ETCHER) Hemoglobin A1C 5.8 4.3 - 6.0 % [facility] 01/05/2008 8:35 AM ZINC ETCHER 01/05/2008 8:36 AM ZINC ETCHER us Mohsen Nunes MD LABORATORY Final Result [facility] [address] * (ABNORMAL) A.M.A. LIPID PANEL (01/05/2008 8:35 AM ZINC ETCHER) Cholesterol 168 0 - 200 mg/dL [facility] Comment: LDL Cholesterol is the primary guide to therapy: LDL-cholesterol goal in high risk patients is <100 mg/dL and in very high risk patients is <70 mg/dL. The NCEP recommends further evaluation of: patients with cholesterol <200 mg/dL if additional risk factors are present, cholesterol >240 mg/dL, triglycerides >150 mg/dL, or HDL <40 mg/dL. Triglycerides 168(H) 0 - 150 mg/dL [facility] HDL Cholesterol 31(L) 50 - 110 mg/dL [facility] LDL Cholesterol Calculated 104 0 - 129 mg/dL [facility] VLDL-Cholesterol 34(H) 0 - 30 mg/dL [facility] Cholesterol/HDL Ratio 5.5(H) 0.0 - 5.0 [facility] 01/05/2008 8:35 AM ZINC ETCHER 01/05/2008 8:36 AM ZINC ETCHER Mohsen Nunes MD LABORATORY Final Result [facility] [place] [place] [address] from Last 3 Months or Most Recently Relevant to Health Maintenance [place]ives For more information, please contact: [phone] Documents on File Type Date Recorded Patient Naphthalene Still Operator Expl anation Advance Directives and Living Will 06/27/2023 Twila Margoth (GUARDIAN) Legal Guardianship 09-16-2017 (original order 03-11-2009) * Full Code (Latest Code Status on File) Date Activated Date Inactivated Comments 06/10/2025 8:10 PM 06/17/2025 8:26 PM All basic an d advanced life-sustaining interventions are performed as appropriate Question Answer Comments Code status determined by: Discussion with patie nt/ legal decision maker * Full Code Date Activated Date Inactivated Comments 06/08/2025 4:30 PM 06/10/2025 6:36 PM All basic an d advanced life-sustaining interventions are performed as appropriate Question Answer Comments Code status determined by: Discussion with patie nt/ legal decision maker Care Teams Anodiser Relationship Specialty Start Date End Date Erma Lucia PA [place] [address] PCP - General Family Practice 06/22/25 Amy Magallanes Psychiatrist 01/16/24
== END 2025-09-22 16:08 | disposition home or self-care (01) ==
LOC: NPINS 16:07
PROVIDERS: PCP Nurse Practitioner Family; Visit Provider Family Medicine
DX: Z11.1 Encounter for screening for respiratory tuberculosis (principal); E03.9 Hypothyroidism, unspecified; F20.9 Schizophrenia, unspecified; Z00.00 Encounter for general adult medical examination without abnormal findings
CPT/HCPCS: 80048; 80061; 84443; 85025; 86480